=== PATIENT | female | born 1955 | race Caucasian/White ===

== ENCOUNTER → 2018-04-24 | Outpatient (CLI) | payer MEDICARE ==
--- NOTE | 2018-04-25 11:18 | BD ---
EXAMINATION TYPE: Axial Bone Density DATE OF EXAM: 04/24/2018 COMPARISON: NONE CLINICAL HISTORY: 62 YR OLD FEMALE....ICD-10 CODE: Z78.0 ASYMPTOMATIC MENOPAUSAL STATE Height: 58.2 Weight: 132 FRAX RISK QUESTIONS: Current Tobacco Use: YES, APROX 1 PAC RISK FACTORS HISTORY OF: Family History of Osteoporosis: YES, MOM, GRANDMA, AUNT, NO HIP FXS Active: IT DEPENDS Diet low in dairy products/other sources of calcium: NO Postmenopausal woman: YES AT AGE 53 Lost more than 2 inches in height since high school: YES, 62 INCHES IN [employer] MEDICATIONS: Additional Medications: ZOLOFT AND XANAX PRN, REFLUX MEDS, VIT D, MULTIVITAMIN WITH CALCIUM, TUMS Additional History: BARIATRIC SURG 2007, GI PROBLEMS, ULCERS, PANIC ATTACKS, HEARTBURN EXAM MEASUREMENTS: Bone mineral densitometry was performed using the [employer]. Bone mineral density as measured about the Lumbar spine is: ----- L1-L4(G/cm2): 1.255 T Score Values are as follows: ----- L1: 0.5 ----- L2: -0.2 ----- L3: 0.7 ----- L4: 1.0 ----- L1-L4: 0.6 Bone mineral density FIRST BONE DENSTIY STUDY AT [facility] Bone mineral density about the R hip (g/cm2): 0.894 Bone mineral density about the L hip (g/cm2): 0.900 T Score values are as follows: -----R Neck: -0.9 -----L Neck: -0.8 -----R Total: -0.9 -----L Total: -0.9 Bone mineral density NEW TO [facility] FRAX%s: THERE IS A 7.4% CHANCE OF A MAJOR OSTEOPOROTIC FX AND A0.7% FOR HIP FX.....PROBABILITY OF FX\ IN 10 YRS TIME IMPRESSION: Normal (Values between +1 and -1 indicate normal bone mass). Values approach osteopenia regarding bot h femurs. Consider repeating this study in 5 years or sooner if there is some new clinical indication . NOTE: T-SCORE=SD OF THE YOUNG ADULT MEAN.
== END | disposition home or self-care (01) ==
LOC: RADBDWWP 14:56
PROVIDERS: ATTEND Family Medicine
DX: Z13.820 Encounter for screening for osteoporosis (principal); Z78.0 Asymptomatic menopausal state
CPT/HCPCS: 77080

== ENCOUNTER → 2018-07-10 | Outpatient (CLI) | payer MEDICARE ==
--- NOTE | 2018-07-10 18:34 | CONS ---
CONSULTATION DATE OF SERVICE: 07/10/2018 This patient is a 63-year-old lady who has been evaluated in the sleep center for obstructive sleep apnea-hypopnea syndrome. HISTORY OF PRESENT ILLNESS/SLEEP-WAKE EVALUATION: Patient was diagnosed with obstructive sleep apnea around 1998 and was started on treatment with CPAP but quit it in about 2015 because at that time she had some work on her mouth and she was not able to wear her mask. At the present time, her sleep schedule is from around 1 to 4 a.m. until 10 a.m. to 1 p.m. No problem with falling asleep. No TV in bedroom. The patient continues to snore, has episodes of stopped breathing during sleep, grinding her teeth, has panic attacks, palpitations, heartburn, episodes of gasping for air and sweating, episodes of nocturia once per night. She also has episodes of discomfort in her feet and significant movements of her feet at night. [place] Sleepiness Scale is 9. PAST MEDICAL HISTORY: 1. History of coronary artery disease, status post SD around 1993. 2. Anxiety. 3. Acid reflux. 4. Back problems. 5. Neck problems. 6. Carpal tunnel syndrome. 7. History of stroke by results of CT scan of the head. PAST SURGICAL HISTORY: 1. Tonsillectomy. 2. Cholecystectomy. 3. Bariatric surgery. 4. Surgery for carpal tunnel syndrome. MEDICATIONS: 1. Paxil. 2. Xanax. 3. [place]. 4. Prilosec. 5. Vitamin D and B12 supplement. 6. Calcium supplement. 7. Folic acid supplement. 8. Acidophilus. 9. Magnesium. SOCIAL HISTORY: Positive for smoking for about 50 pack/years. Alcohol consumption none. FAMILY HISTORY: Hypertension, heart problems, hyperlipidemia, stroke, arthritis, sinus headaches, emphysema, bronchitis, cancer, insomnia, acid reflux, ulcers, anemia, mental illness. REVIEW OF SYSTEMS: Back pain, neck pain, awakenings from sleep, tiredness and sleepiness during the day. PHYSICAL EXAMINATION: GENERAL A pleasant lady without distress. VITAL SIGNS: BP 137/67, HR 62, RR 16, height 4 feet 10-1/2 inches, weight 138, BMI 28.1. Temperature 98.8. Oxygen saturation at room air 100%. Neck 13 inches in circumference. HEENT: PERRLA, EOMI. Evaluation of oropharynx showed tongue protrudes midline; low position of soft palate. NECK: Supple. No JVD. Thyroid is not palpable. LUNGS: Clear to percussion and to auscultation. Good air exchange. No wheezing or rhonchi. HEART: S1, S2 regular. Systolic murmur with maximum on aorta. ABDOMEN: Soft and nontender. Bowel sounds are present. No organomegaly appreciated. EXTREMITIES: No clubbing or cyanosis. SUPERINTENDENT RECREATION: Awake, alert, and oriented X3. Cranial nerves 2 to 7 intact. There is no fasciculation or atrophy noted. No focal deficits observed. IMPRESSION: 1. Snoring, low position of soft palate, awakenings from sleep with stopped breathing, history of obstructive sleep apnea in the past, sleepiness; obstructive sleep apnea-hypopnea syndrome. 2. Muscles cramps during sleep. 3. Anxiety. 4. Coronary artery disease, status post myocardial infarction around 1993. 5. History of stroke by results of CT scan. 6. Neck problems. 7. Back problems. 8. Status post tonsillectomy. 9. Status post cholecystectomy. 10.Status post bariatric surgery. 11.History of carpal tunnel syndrome, status post surgical treatment. 12.History of panic attacks. 13.History of smoking for 50 pack/years. PLAN: 1. Polysomnography for evaluation of patient's breathing during sleep. 2. CPAP/BiPAP titration if sleep study confirms obstructive sleep apnea-hypopnea syndrome. 3. Preferable position during sleep on the side. 4. No driving if patient feels any sleepiness. Patient is aware of civil and criminal liability for unsafe driving. 5. Smoking cessation program. I will see patient for follow-up visit to explain results of testing and following plan. Thank you very much for referring this patient for consultation. Sincerely, Man Wilkes MD, PhD, FAASM Diplomat of [place] [employer] [place] [employer] [facility] [place] MMODL / IJN: [id number] /
== END | disposition home or self-care (01) ==
LOC: SLEEP 16:49
PROVIDERS: ATTEND Internal Medicine
DX: G47.33 Obstructive sleep apnea (adult) (pediatric) (principal); F41.9 Anxiety disorder, unspecified; I25.10 Atherosclerotic heart disease of native coronary artery without angina pectoris; R25.2 Cramp and spasm; I25.2 Old myocardial infarction; R29.898 Other symptoms and signs involving the musculoskeletal system; Z86.73 Personal history of transient ischemic attack (TIA), and cerebral infarction without residual deficits; Z90.89 Acquired absence of other organs; Z90.49 Acquired absence of other specified parts of digestive tract; Z98.84 Bariatric surgery status; Z86.69 Personal history of other diseases of the nervous system and sense organs; Z98.890 Other specified postprocedural states; Z86.59 Personal history of other mental and behavioral disorders; Z87.891 Personal history of nicotine dependence; Z99.89 Dependence on other enabling machines and devices; Z79.899 Other long term (current) drug therapy; Z79.891 Long term (current) use of opiate analgesic
CPT/HCPCS: 99211

== ENCOUNTER 2018-07-22 02:26 | Inpatient (IN) | payer MEDICARE ==
[2018-07-22] MEDS ORDERED: PANTOPRAZOLE 40 MG/10 ML VIAL IVP STA (03:25)
[2018-07-22] MEDS ORDERED: NALOXONE 0.4 MG/ML 1 ML VIAL IV PRN (03:26)
[2018-07-22] MEDS ORDERED: ONDANSETRON 4 MG/2 ML VIAL IVP PRN (03:26)
[2018-07-22] MEDS ORDERED: HYDROmorphone 0.5 MG/0.5 ML SYRINGE IVP PRN (03:26)
[2018-07-22] MEDS ORDERED: LORazepam 2 MG/ML INJ IV PRN (03:26)
--- NOTE | 2018-07-22 03:26 | ED ---
Abdominal Pain HPI - General Chief Complaint: Abdominal Pain Stated Complaint: Abd pain Time Seen by Provider: 07/22/18 02:38 Source: EMS, RN notes reviewed, old records reviewed Mode of arrival: EMS Limitations: no limitations - History of Present Illness Initial Comments: 63-year-old female presents emergency Department data with chief complaint of 3 days of black tarry stools as well as back pain. Patient reports that she believed her stools started after she started taking a new depression medication Celexa. Patient reports that she has history of bariatric surgery in 2007. She relates that she has had no vomiting episodes. She is relates that she has had black stools. 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 She is on any blood thinners. She was initially seen at [facility]. She was transferred here. She did have a positive occult. Her hemoglobin is 9.9. She reports that 3 weeks ago from her primary care provider's office her hemoglobin was 12.4 that time. Patient was also found to have pancreatitis, elevated lipase at 1301. AST and ALT are within normal limits. She did have a CAT scan which shows a common bile duct diameter of 12 mm. MRCP may be able to further define this issue. Patient reports that she is not had an upper GI scope or any other GI testing in the past 5 years. She is due for a colonoscopy and further testing in 2014. Patient also relates a few weeks prior to that she did not have respiratory infection and was on 2 courses of azithromycin and then later clindamycin. - Related Data Allergies Allergy/AdvReac Type Severity Reaction Status Date / Time diazepam [From Valium] Allergy Confusion Verified 07/22/18 02:35 moxifloxacin [From Avelox] Allergy Unknown Verified 07/22/18 02:35 Penicillins Allergy Unknown Verified 07/22/18 02:35 Sulfa (Sulfonamide Allergy Unknown Verified 07/22/18 02:35 Antibiotics) tapentadol [From Nucynta] Allergy Nausea & Verified 07/22/18 02:35 Vomiting & Diarrhea tetracycline Allergy Rash/Hives Verified 07/22/18 02:35 tramadol [From Ultram] Allergy Unknown Verified 07/22/18 02:35 NSAIDS (Non-Steroidal AdvReac Unknown Verified 07/22/18 02:35 Anti-Inflamma Review of Systems ROS Statement: Those systems with pertinent positive or pertinent negative responses have been documented in the HPI. ROS Other: All systems not noted in ROS Statement are negative. Past Medical History Past Medical History: Myocardial Infarction ([place]) History of Any Multi-Drug Resistant Organisms: None Reported Past Surgical History: Bariatric Surgery, Cholecystectomy, Ear Surgery, Hernia Repair, Orthopedic Surgery, Tonsillectomy Past Psychological History: Anxiety, Depression, Panic Disorder Smoking Status: Current every day smoker Past Alcohol Use History: None Reported Past Drug Use History: None Reported General Exam - General Exam Comments Initial Comments: Pleasant 63-year-old female. Alert. No significant distress. Limitations: no limitations General appearance: alert, in no apparent distress Head exam: Present: atraumatic, normocephalic, normal inspection Eye exam: Present: normal appearance, PERRL, EOMI. Absent: scleral icterus, conjunctival injection, periorbital swelling ENT exam: Present: normal exam, mucous membranes moist Neck exam: Present: normal inspection. Absent: tenderness, meningismus, lymphadenopathy Respiratory exam: Present: normal lung sounds bilaterally Cardiovascular Exam: Present: regular rate, normal rhythm, normal heart sounds. Absent: systolic murmur, diastolic murmur, rubs, gallop, clicks GI/Abdominal exam: Present: soft, tenderness (Right upper quadrant left upper quadrant tenderness. Evidence of scarring over previous cholecystectomy.), normal bowel sounds. Absent: distended, guarding, rebound, rigid Back exam: Present: normal inspection Neurological exam: Present: alert, oriented X3, CN II-XII intact Psychiatric exam: Present: normal affect, normal mood Skin exam: Present: warm, dry, intact, normal color. Absent: rash Course Vital Signs 07/22/18 02:27 Temperature 98.5 F Pulse Rate 78 Respiratory 18 Rate Blood Pressure 172/72 O2 Sat by Pulse 100 Oximetry Medical Decision Making - Medical Decision Making 63-year-old female presents emergency department for Dr. Rubalcava for admission for GI bleed and pancreatitis. Hemoglobin 9.9 at this time. Troponin stable. She denies any nausea or vomiting. Her lipase was elevated at 13,000. Computed tomography scan shows evidence of dilated biliary ducts recommended MRCP to further define. Her white blood cell count was within normal limits at 6.5. She has no fevers or chills. Patient will be admitted at this time with consult to GI. Patient will be given IV Protonix and saline here. Rechecking CBC. 07/22/18 03:24 EKG performed at 2142 showed sinus rhythm ventricular rate 60 bpm. MA interval is 142 most seconds. QRS duration is 80 ms. QTC was 396. - Radiology Data Radiology results: report reviewed CT shows, bile duct diameter 12 mm clinical or laboratory evidence of biliary obstruction process or CPK further define. No convincing acute process identified. Disposition Clinical Impression: Pancreatitis, Upper GI bleed Disposition: ADMITTED IP TO THIS HOSP Condition: Stable Is patient prescribed a controlled substance at d/c from ED?: No Referrals: Lincoln Dodd MD [Primary Care Provider] - 1-2 days Time of Disposition: 03:25
[2018-07-22] MEDS: HYDROmorphone 1 MG/ML 1 ML SYRINGE IVP PRN ×4 (03:58→21:31)
[2018-07-22] MEDS: SODIUM CHLORIDE 0.9% 1,000 ML IV SCH ×2 (03:59→13:43)
[2018-07-22] MEDS ORDERED: ALPRAZolam 0.5 MG TAB PO STA (04:05)
[2018-07-22 04:18] LABS: Basophils % (A) 1 %; Eosinophils # (A) 0.2 k/uL (0-0.7); Eosinophils % (A) 3 %; HCT 35.2 % (34.0-46.0); HGB 11.6 gm/dL (11.4-16.0); Lymphocytes # (A) 2.1 k/uL (1.0-4.8); Lymphocytes % (A) 34 %; MCH 32.2 pg (25.0-35.0); MCHC 32.8 g/dL (31.0-37.0); MCV 98.2 fL (80.0-100.0); Mean Platelet Volume 7.4; Monocytes # (A) 0.5 k/uL (0-1.0); Monocytes % (A) 8 %; Neutrophils # (A) 3.3 k/uL (1.3-7.7); Neutrophils % (A) 52 %; Platelet Count 244 k/uL (150-450); RBC 3.59 m/uL (3.80-5.40); RDW 12.9 % (11.5-15.5); WBC 6.2 k/uL (3.8-10.6)
[2018-07-22 04:54] VITALS: BMI 26.7
--- NOTE | 2018-07-22 08:40 | US ---
EXAMINATION TYPE: US gallbladder DATE OF EXAM: 07/22/2018 COMPARISON: Outside CT earlier today. CLINICAL HISTORY: Pancreatitis. GB removed x 30+ years ago. Dark and foul smelling stool. Hx of bar iatric surgery. EXAM MEASUREMENTS: Liver Length: 16.4 cm CBD: 0.9 cm CHD: 1.0 cm Right Kidney: 9.8 x 4.5 x 3.4 cm Pancreas: Appears slightly heterogenous. Body= 1.6 cm. Main pancreatic duct = 2.4 mm. Liver: wnl Gallbladder: Surgically absent Evidence for sonographic Max's sign: neg CBD: upper limits of normal CHD: upper limits of normal after cholecystectomy Right Kidney: wnl IMPRESSION: On CT and ultrasound there is no evidence of complication related to acute pancreatitis. Duct is visualized but felt upper limits of normal on ultrasound perhaps mildly dilated in the head o n CT. No suspicious surrounding focal fluid collection is seen on CT or ultrasound.
[2018-07-22] MEDS ORDERED: PANTOPRAZOLE 40 MG/10 ML VIAL IV SCH (09:00)
[2018-07-22] MEDS ORDERED: CALCIUM CARBONATE 500 MG CHEWABLE PO PRN (12:08)
[2018-07-22] MEDS ORDERED: MELATONIN 3 MG TABLET PO PRN (12:08)
[2018-07-22 12:21] LABS: Basophils % (A) 1 %; Eosinophils # (A) 0.1 k/uL (0-0.7); Eosinophils % (A) 2 %; HCT 28.9 % (34.0-46.0); Hypochromasia Slight; Lymphocytes # (A) 1.4 k/uL (1.0-4.8); Lymphocytes % (A) 30 %; MCH 32.1 pg (25.0-35.0); MCHC 32.2 g/dL (31.0-37.0); MCV 99.8 fL (80.0-100.0); Mean Platelet Volume 7.3; Monocytes # (A) 0.5 k/uL (0-1.0); Monocytes % (A) 10 %; Neutrophils # (A) 2.6 k/uL (1.3-7.7); Neutrophils % (A) 54 %; Platelet Count 198 k/uL (150-450); RBC 2.89 m/uL (3.80-5.40); RDW 12.9 % (11.5-15.5); WBC 4.8 k/uL (3.8-10.6)
[2018-07-22 12:25] LABS: Amylase 52 U/L (30-110); Lipase 194 U/L (23-300)
[2018-07-22 12:28] LABS: HGB 9.3 gm/dL (11.4-16.0)
[2018-07-22 12:40] LABS: INR 1.1 (<1.2); Prothrombin Time 10.8 sec (9.0-12.0)
[2018-07-22] MEDS: HEPARIN SODIUM,PORCINE 5,000 UNIT/ML 1 ML VIAL SQ SCH ×3 (13:06→22:13)
[2018-07-22] MEDS: HYDROcodone/APAP 10-325MG 1 EACH TAB PO SCH ×3 (13:06→22:43)
[2018-07-22] MEDS: SUCRALFATE 1 GM TAB PO SCH ×3 (13:06→21:42)
[2018-07-22] MEDS: ERGOCALCIFEROL 50,000 UNIT CAP PO SCH ×2 (13:07→13:33)
[2018-07-22] MEDS: NICOTINE 14MG/24HR PATCH TRANSDERM SCH (13:42)
--- NOTE | 2018-07-22 14:36 | HP ---
HISTORY AND PHYSICAL DATE OF SERVICE: 07/22/2018 CHIEF COMPLAINT: Abdominal pain, melena. HISTORY OF PRESENT ILLNESS: This is a 63-year-old woman with a past medical history of multiple medical problems including bariatric surgery, cholecystectomy, history of myocardial infarction, anxiety, depression, panic disorder, being followed by Dr. Lincoln Dodd in the outpatient setting was complaining of abdominal pain. Patient presented to [facility]. The patient also noted to have melena for the last 2 days. The abdominal pain was felt in the epigastric area and the back and hemoglobin was found to be 9.9 and hemoglobin previous was 12.4. The patient was sent to [facility], admitted for further evaluation and treatment. Lipase is elevated from elsewhere. There is no history of fever or rigors. No history of headache, loss of consciousness, seizures. PAST MEDICAL HISTORY: History of myocardial infarction, cholecystectomy, bariatric surgery, anxiety, depression, panic disorder. MEDICATIONS ARE: 1. Home medication vitamin D2 fifty thousand q.7 days. 2. Tobrex 1 drop b.i.d. 3. Carafate 1 g a.c. and at bedtime. 4. Paxil 20 mg p.o. daily. 5. Prilosec OTC 20 mg b.i.d. 6. Claritin 10 mg p.o. daily. 7. [place] 10 mg 5 times daily. 8. Celexa 10 mg p.r.n. 9. Xanax 0.5 t.i.d. p.r.n. 10.TUMS 500 mg daily p.r.n. ALLERGIES: DIAZEPAM, MOXIFLOXACIN, PENICILLIN, SULFA, NUCYNTA, TETRACYCLINE, ULTRAM, NSAIDS. FAMILY HISTORY: No history of heart disease or strokes in the family. SOCIAL HISTORY: History of smoking on a daily basis. No history of alcohol intake. REVIEW OF SYSTEMS: ENT: No diminished vision. CARDIOVASCULAR: No angina or palpitation. RESPIRATION: No cough or hemoptysis. GI: As mentioned earlier. : No dysuria. NERVOUS SYSTEM: No numbness or weakness. ALLERGY/IMMUNOLOGY: No history of asthma. MUSCULOSKELETAL: As mentioned earlier. HEMATOLOGY: No history of anemia. ENDOCRINE: No history of diabetes or hypothyroid. CONSTITUTIONAL: As mentioned earlier. DERMATOLOGY: Negative. RHEUMATOLOGY: Negative. PSYCHIATRY: As mentioned earlier. PHYSICAL EXAMINATION: Patient is alert and oriented x3. Pulse 71, blood pressure 102/59, respirations 16, temperature 97.9, pulse ox 97% on room air. HEENT: Conjunctivae normal. Oral mucosa moist. NECK: No jugular venous distention. No carotid bruit, no lymph node enlargement. CARDIOVASCULAR SYSTEM: S1, S2, muffled. RESPIRATORY: Breath sounds diminsihed at the bases, no rhonchi, no crackles. ABDOMEN: Soft. Mild diffuse discomfort. No guarding. No rigidity. No mass palpable. LEGS: No edema, no swelling. NERVOUS SYSTEM: Higher functions as mentioned earlier. Moves all 4 limbs, no focal motor deficits. LYMPHATICS: No lymph node enlargement. SKIN: No ulcer, rash or bleeding. LABS: WBC 4.8, hemoglobin is 9.3. ASSESSMENT: 1. Possible upper gastrointestinal bleeding with acute blood loss anemia, possible peptic ulcer disease. 2. Possible acute pancreatitis with abdominal pain. 3. History of bariatric surgery. 4. History of cholecystectomy. 5. History of hernia surgery. 6. History of anxiety, depression, panic disorder. 7. Continued ongoing nicotine dependence. 8. History of myocardial infarction. RECOMMENDATION: This 63-year-old woman presented with multiple complex medical issues. Will monitor the patient closely. Continue with the current management and symptomatic treatment. Otherwise, I would recommend resume home medications. Keep the patient on clear liquids. Gastroenterology consultation for possible endoscopies. Repeat amylase, lipase. Prognosis is guarded. Further recommendations to follow. A copy of this will be forwarded to Dr. Lincoln Dodd who is the primary physician. MMODL / IJN: [id number] /
[2018-07-22 19:49] LABS: Appearance,Urine Clear (Clear); Bilirubin,Urine Negative (Negative); Blood,Urine Small (Negative); Color,Urine Light Yellow; Glucose,Urine (UA) Negative (Negative); Ketones,Urine Negative (Negative); Leukocyte Esterase,Urine Negative (Negative); Mucus,Urine Rare /hpf; Nitrite,Urine Negative (Negative); Protein,Urine Negative (Negative); RBC,Urine 1 /hpf (0-5); Specific Gravity,Urine 1.009 (1.001-1.035); Squamous Epithelial Cell,Urine <1 /hpf (0-4); Urobilinogen,Urine <2.0 mg/dL (<2.0); WBC,Urine 1 /hpf (0-5)
[2018-07-22] MEDS: PANTOPRAZOLE 40 MG/10 ML VIAL IV SCH (21:42)
[2018-07-22] MEDS: TOBRAMYCIN 0.3% OPHTH OINT 3.5 GM TUBE BOTH EYES SCH ×2 (21:44→21:49)
--- NOTE | 2018-07-22 23:46 | P.CONS ---
History of Present Illness - Reason for Consult Consult date: 07/22/18 Melena Requesting physician: Andres Kang - Chief Complaint Melena - History of Present Illness The patient is a pleasant 63-year-old female with a medical history significant for anxiety, depression, prior myocardial infarction and chronic back pain who presents to the hospital with complaints of black tarry stools. The patient reports that she has had 3 days of black bowel movements. She denies any gross blood per rectum. The patient has a history of gastroesophageal reflux disease and is on omeprazole therapy as needed. She denies any NSAID use. She reports that she was having approximately 3 bowel movements per day. She denies any NSAID use. She does believe she had a prior diagnosis of peptic ulcer disease in the . She has also undergone a Bernice-en-Y surgery and reports that she had an EGD following this in 2007 as well as a subsequent EGD which was normal. The patient has had elevations in her amylase and lipase before. She reports intermittent episodes of abdominal pain which she says, and go. Previously in April she was treated with Carafate which she felt helped. She denies any use of iron supplementation or Pepto-Bismol. On presentation to the hospital patient's hemoglobin was found to be 11.6, she reports that a few weeks ago it was 12.4, however initial transfer to this hospital was due to the patient's symptoms and a reported hemoglobin of 9.9 at an outside hospital. Lipase was found to be 1301 on presentation. Liver enzymes were normal on presentation and ultrasound showed a surgically absent gallbladder with a common bile duct within normal limits. Past endoscopic history: The patient states that her last colonoscopy was approximately 12 years ago and was normal. Patient has had upper endoscopy in the past with the patient reporting her first EGD in 2007 after her Berniec-en-Y surgery and a subsequent EGD which were normal. Review of Systems REVIEW OF SYSTEMS: CARDIOPULMONARY: Denies chest pain or shortness of breath. GENITOURINARY: No dysuria or hematuria. MUSCULOSKELETAL: No weakness reported. SKIN: Denies any new rashes or lesions, jaundice or pallor. PSYCHIATRIC: The patient has a known history of depression and anxiety with recent change in medications to Celexa. NEUROLOGY: Denies headache, denies any new focal deficits. EARS: No tinnitus, discharge or new hearing loss. NOSE: No discharge or congestion. EYES: No pain in eyes or change in vision. CONSTITUTIONAL: No recent weight loss. No fever, chills, night sweats. Past Medical History Past Medical History: Myocardial Infarction (MD) Last Myocardial Infarction Date:: History of Any Multi-Drug Resistant Organisms: None Reported Past Surgical History: Bariatric Surgery, Cholecystectomy, Ear Surgery, Hernia Repair, Orthopedic Surgery, Tonsillectomy Past Psychological History: Anxiety, Depression, Panic Disorder Smoking Status: Current every day smoker Past Alcohol Use History: None Reported Past Drug Use History: None Reported Additional History: Past family history: Reviewed and noncontributory to patient's illness. Medications and Allergies Home Medications Medication Instructions Recorded Confirmed Type ALPRAZolam [Xanax] 0.5 mg PO TID PRN 07/22/18 07/22/18 History Calcium Carbonate [Tums] 500 mg PO DAILY PRN 07/22/18 07/22/18 History Citalopram Hydrobromide [CeleXA] 10 mg PO DAILY 07/22/18 07/22/18 History Ergocalciferol (Vitamin D2) 50,000 units PO Q7D 07/22/18 07/22/18 History [Vitamin D2] HYDROcodone/APAP 10-325MG [[place] 1 tab PO 5XD 07/22/18 07/22/18 History 10-325] Loratadine [Claritin] 10 mg PO DAILY 07/22/18 07/22/18 History Omeprazole Magnesium [PriLOSEC OTC] 20 mg PO Q12HR PRN 07/22/18 07/22/18 History PARoxetine HCL 20 mg PO DAILY 07/22/18 07/22/18 History Sucralfate [Carafate] 1 gm PO ACHS 07/22/18 07/22/18 History Tobramycin 0.3% Ophth Oint [Tobrex 1 applic BOTH EYES BID 07/22/18 07/22/18 History 0.3% Ophth Oint] Allergies Allergy/AdvReac Type Severity Reaction Status Date / Time diazepam [From Valium] Allergy Confusion Verified 07/22/18 08:29 moxifloxacin [From Avelox] Allergy Unknown Verified 07/22/18 08:29 Penicillins Allergy Unknown Verified 07/22/18 08:29 Sulfa (Sulfonamide Allergy Unknown Verified 07/22/18 08:29 Antibiotics) tapentadol [From Nucynta] Allergy Nausea & Verified 07/22/18 08:29 Vomiting & Diarrhea tetracycline Allergy Rash/Hives Verified 07/22/18 08:29 tramadol [From Ultram] Allergy Unknown Verified 07/22/18 08:29 NSAIDS (Non-Steroidal AdvReac Unknown Verified 07/22/18 08:29 Anti-Inflamma Physical Exam Vitals: Vital Signs Temp Pulse Pulse Resp BP BP Pulse Ox 07/22/18 23:00 99.0 F 71 24 101/64 96 07/22/18 15:00 98.5 F 60 16 98/60 95 07/22/18 06:53 97.9 F 71 16 102/59 97 07/22/18 06:17 18 07/22/18 04:16 97.9 F 07/22/18 04:00 66 18 130/62 100 07/22/18 02:27 98.5 F 78 18 172/72 100 Intake and Output 07/22/18 07/22/18 07/23/18 14:59 22:59 06:59 Intake Total 840 Balance 840 Intake: Intake, IV Titration 600 Amount Sodium Chloride 0.9% 1, 600 000 ml @ 100 mls/hr IV . Q10H [facility] Rx#:[id number] Oral 240 Other: Voiding Method Toilet Toilet # Voids 2 2 # Bowel Movements 0 Weight 58 kg On physical examination, patient appears comfortable in no apparent distress. HEAD: Normocephalic, atraumatic. EYES: No scleral icterus. No conjunctival injection. MOUTH: No lesions, tongue midline. NECK: Trachea midline, no gross abnormalities. CHEST: Clear to auscultation with no wheezing or rhonchi appreciated. HEART: Regular rate and rhythm. ABDOMEN: Soft. Bowel sounds are positive. No organomegaly. No guarding or rigidity. EXTREMITIES: No pedal edema. SKIN: No rashes, no jaundice. NEUROLOGIC: Alert and oriented x3. No focal deficits. Results CBC & Chem 7: 07/22/18 09:17 Labs: Abnormal Lab Results - Last 24 Hours (Table) 07/22/18 07/22/18 07/22/18 Range/Units 03:54 09:17 19:30 RBC 3.59 L 2.89 L (3.80-5.40) m/uL Hgb 9.3 L D (11.4-16.0) gm/dL Hct 28.9 L (34.0-46.0) % Urine Blood Small H (Negative) Urine Mucus Rare H (None) /hpf Assessment and Plan (1) Melena Narrative/Plan: The patient reporting 3 days of black, tarry, foul-smelling stool. She was reportedly found to have a hemoglobin of 9.9 at an outside hospital which was subsequently found to be 11.6 on presentation to this hospital, however repeat hemoglobin was 9.4. She denies any NSAID use however does report a recent course of steroid therapy. She denies any alcohol use. This is likely related to upper GI pathology such as peptic ulcer disease, anastomotic site ulcer, erosive esophagitis/gastritis, or other etiology. Current Visit: Yes Status: Acute Code(s): K92.1 - MELENA SNOMED Code(s): 2818998 (2) Anemia, blood loss Narrative/Plan: As above. Current Visit: Yes Status: Acute Code(s): D50.0 - IRON DEFICIENCY ANEMIA SECONDARY TO BLOOD LOSS (CHRONIC) SNOMED Code(s): 501020637 (3) Upper GI bleed Narrative/Plan: As above. Current Visit: Yes Status: Acute Code(s): K92.2 - GASTROINTESTINAL HEMORRHAGE, UNSPECIFIED SNOMED Code(s): 45810165 Plan: Supportive care Monitor hemoglobin and hematocrit and transfuse as needed Continue Protonix twice daily Okay for liquid diet Plan for EGD tomorrow Given symptoms and patient's anemia she was offered a colonoscopy in the setting of a remote prior colonoscopy in 2011. The patient was initially agreeable however later changed her mind and only wants to have investigation with EGD at this time Thank you for allowing us to participate in the care of this patient, we will continue to follow
[2018-07-23] MEDS: HYDROmorphone 1 MG/ML 1 ML SYRINGE IVP PRN ×5 (00:20→21:49)
[2018-07-23] MEDS: HYDROcodone/APAP 10-325MG 1 EACH TAB PO SCH ×5 (00:20→19:40)
[2018-07-23] MEDS: ALPRAZolam 0.5 MG TAB PO PRN ×3 (00:27→16:46)
[2018-07-23] MEDS: SODIUM CHLORIDE 0.9% 1,000 ML IV SCH ×2 (00:27→10:00)
[2018-07-23] MEDS: ACETAMINOPHEN TAB 500 MG TAB PO PRN ×2 (06:11→12:02)
[2018-07-23] MEDS: HEPARIN SODIUM,PORCINE 5,000 UNIT/ML 1 ML VIAL SQ SCH ×2 (07:48→21:49)
[2018-07-23] MEDS: NICOTINE 14MG/24HR PATCH TRANSDERM SCH (07:49)
[2018-07-23] MEDS: PANTOPRAZOLE 40 MG/10 ML VIAL IV SCH ×2 (07:50→21:48)
[2018-07-23] MEDS: TOBRAMYCIN 0.3% OPHTH OINT 3.5 GM TUBE BOTH EYES SCH ×2 (07:50→21:49)
[2018-07-23] MEDS: LORATADINE 10 MG TAB PO SCH (07:50)
[2018-07-23] MEDS: SUCRALFATE 1 GM TAB PO SCH ×4 (07:50→21:48)
[2018-07-23] MEDS: PARoxetine 20 MG TAB PO SCH (07:52)
[2018-07-23 09:39] LABS: Basophils % (A) 0 %; Eosinophils # (A) 0.1 k/uL (0-0.7); Eosinophils % (A) 2 %; HCT 29.2 % (34.0-46.0); HGB 9.2 gm/dL (11.4-16.0); Lymphocytes # (A) 1.5 k/uL (1.0-4.8); Lymphocytes % (A) 38 %; MCH 31.8 pg (25.0-35.0); MCHC 31.7 g/dL (31.0-37.0); MCV 100.3 fL (80.0-100.0); Monocytes # (A) 0.3 k/uL (0-1.0); Monocytes % (A) 8 %; Neutrophils # (A) 1.8 k/uL (1.3-7.7); Neutrophils % (A) 47 %; Platelet Count 197 k/uL (150-450); RBC 2.91 m/uL (3.80-5.40); RDW 12.7 % (11.5-15.5); WBC 3.9 k/uL (3.8-10.6)
[2018-07-23 09:58] LABS: ALT 30 U/L (9-52); AST 24 U/L (14-36); Alkaline Phosphatase 87 U/L (38-126); Amylase 38 U/L (30-110); Anion Gap 5 mmol/L; Blood Urea Nitrogen 8 mg/dL (7-17); Calcium 8.6 mg/dL (8.4-10.2); Carbon Dioxide 26 mmol/L (22-30); Chloride 107 mmol/L (98-107); Cholesterol 115 mg/dL (<200); Glucose 73 mg/dL (74-99); HDL Cholesterol 50 mg/dL (40-60); LDL Cholesterol,Calculated 49 mg/dL (0-99); Lipase 76 U/L (23-300); Potassium 4.1 mmol/L (3.5-5.1); Sodium 138 mmol/L (137-145); Total Bilirubin 0.3 mg/dL (0.2-1.3); Total Protein 5.5 g/dL (6.3-8.2); Triglycerides 79 mg/dL (<150)
[2018-07-23] MEDS ORDERED: PROPOFOL 10 MG/ML 20 ML VIAL IV ONE (12:37)
[2018-07-23] MEDS ORDERED: LIDOCAINE 1% INJ 10MG/ML (20 ML MDV) ONE (12:37)
[2018-07-23] MEDS ORDERED: IV FLUID CONTINUATION 1,000 ML IV ONE (12:39)
--- NOTE | 2018-07-23 13:40 | P.PCN ---
Date of Procedure: 07/23/18 Description of Procedure: BRIEF HISTORY: Patient is a 63-year-old, pleasant, female who presents to the hospital with complaints of 3 days of melena. The patient has a history of anxiety and depression, chronic back pain and prior Bernice-en-Y surgery. She has had endoscopy in the past after her Bernice-en-Y surgery. She denies any use of NSAID medications found to be anemic on presentation. She does take omeprazole but only on an as-needed basis. PROCEDURE PERFORMED: Esophagogastroduodenoscopy with biopsy. PREOPERATIVE DIAGNOSIS: Melena, anemia of acute blood loss. ESTIMATED BLOOD LOSS: Minimal. IV sedation per anesthesia. PROCEDURE: After informed consent was obtained, the patient was brought into the endoscopy unit. IV sedation was administered by Anesthesia under continuous monitoring. Initially the Olympus GIFH-190 video endoscope was inserted into the mouth. Esophagus intubated without any difficulty. It was gradually advanced into the remnant stomach pouch and small bowel and carefully examined. The blind limb of the Bernice-en-Y was inspected and normal, on withdrawal a nonbleeding superficial ulceration at the anastomotic site was noted. The efferent limb was then inspected to 25 cm past the anastomosis with no abnormalities noted. The scope at this time was withdrawn to the remnant pouch of the stomach, which was adequately insufflated with air, and appeared grossly normal. The scope was then withdrawn into the esophagus. The GE junction was located at 35 cm from the incisors. The esophagus appeared normal. IMPRESSION: 1. Nonbleeding superficial ulceration at the Bernice-en-Y anastomotic site with biopsies taken. 2. No other findings to explain melena or anemia this time. RECOMMENDATIONS: The findings of this examination were discussed with the patient. Continue twice daily PPI. Okay for full liquid diet. Avoid NSAID use. Await results of biopsies..
[2018-07-23] MEDS ORDERED: LEVOFLOXACIN 500MG-D5W PMX 500 MG in DEXTROSE/WATER 1 100ML.BAG IVPB SCH (14:00)
--- NOTE | 2018-07-23 17:58 | P.PN ---
Subjective Progress Note Date: 07/23/18 Progress note being dictated for Dr. Kang. Interval history: This is a 63-year-old female admitted with possible upper GI bleed, acute blood loss anemia, possible peptic ulcer disease, abdominal pain and multiple other medical issues in a patient with history of bariatric surgery. Complains of persistent diffuse abdominal pain, lipase improved, 76. Febrile, T-max 100.3. Evaluated by GI , underwent EGD today. EGD reported nonbleeding superficial ulceration in the Bernice-en-Y anastomotic site, biopsies taken. Objective - Vital Signs Vital signs: Vital Signs Temp 100.3 F H 07/23/18 11:58 Pulse 76 07/23/18 15:00 Resp 16 07/23/18 13:45 BP 132/66 07/23/18 15:00 Pulse Ox 97 07/23/18 15:00 Intake & Output 07/22/18 07/23/18 07/23/18 18:59 06:59 18:59 Intake Total 600 1040 50 Balance 600 1040 50 Weight 58 kg Intake: IV 50 Intake, IV Titration 600 800 Amount Sodium Chloride 0.9% 1, 600 800 000 ml @ 100 mls/hr IV . Q10H CECILIA Rx#:[id number] Oral 240 Other: Voiding Method Toilet Toilet # Voids 4 1 3 # Bowel Movements 0 0 - Exam PHYSICAL EXAM: VITAL SIGNS: As above GENERAL: Sitting up at side of bed, no acute distress HEENT: Conjunctivae normal. eyes normal. Oral mucosa dry NECK: No JVD. No thyroid enlargement. No LNs CARDIOVASCULAR: S1, S2 muffled. No murmur RESPIRATION: Breath sounds diminished in the bases. No rhonchi or crackles. No bronchial breathing. ABDOMEN: Soft, mild diffuse tenderness . No guarding. no masses palpable. No rigidity.Bowel sounds heard. LEGS: No edema. no swelling PSYCHIATRY: Alert and oriented -3, mood and affect normal. NERVOUS SYSTEM: Cranial N 2-12 grossly normal. Moves all 4 limbs. Diffuse weakness No focal deficits. Skin: no ulcer no rash Lymphatic system. No LN neck axilla or groin. - Labs CBC & Chem 7: 07/23/18 08:37 07/23/18 08:37 Labs: Abnormal Lab Results - Last 24 Hours (Table) 07/22/18 07/23/18 07/23/18 Range/Units 19:30 08:37 08:37 RBC 2.91 L (3.80-5.40) m/uL Hgb 9.2 L (11.4-16.0) gm/dL Hct 29.2 L (34.0-46.0) % MCV 100.3 H (80.0-100.0) fL Glucose 73 L (74-99) mg/dL Total Protein 5.5 L (6.3-8.2) g/dL Albumin 3.0 L (3.5-5.0) g/dL Urine Blood Small H (Negative) Urine Mucus Rare H (None) /hpf Assessment and Plan Assessment: 1. Possible upper GI bleeding with acute blood loss anemia, status post EGD reporting nonbleeding superficial ulceration in the Bernice-en-Y anastomotic site, biopsies taken. 2. Abdominal pain, possible acute pancreatitis 3. History of bariatric surgery 4. Anxiety, depression, panic disorder history 5. Continued ongoing nicotine dependence 6. CAD, history of [place] 7. Fevers, workup in progress Plan: Continue on current medication regime , PPI, monitoring and symptomatic treatment. Blood cultures, urine cultures ordered. Antibiotics initiated. Close monitoring of hemoglobin with repeat labs ordered for a.m. further recommendations to follow. The impression and plan of care has been dictated as directed. : I performed a history and examination of this patient, discussed the same with the dictator. I agree with the dictator's note ,documented as a scribe. Any additional findings or plans will be noted.
[2018-07-24] MEDS: HYDROcodone/APAP 10-325MG 1 EACH TAB PO SCH ×5 (00:19→19:46)
[2018-07-24] MEDS: ALPRAZolam 0.5 MG TAB PO PRN ×2 (00:36→17:28)
[2018-07-24] MEDS: SODIUM CHLORIDE 0.9% 1,000 ML IV SCH ×3 (00:36→15:31)
[2018-07-24] MEDS: HYDROmorphone 1 MG/ML 1 ML SYRINGE IVP PRN ×5 (04:30→22:52)
[2018-07-24] MEDS: PARoxetine 20 MG TAB PO SCH (08:10)
[2018-07-24] MEDS: SUCRALFATE 1 GM TAB PO SCH ×5 (08:10→19:46)
[2018-07-24] MEDS: HEPARIN SODIUM,PORCINE 5,000 UNIT/ML 1 ML VIAL SQ SCH ×2 (08:10→19:47)
[2018-07-24] MEDS: PANTOPRAZOLE 40 MG/10 ML VIAL IV SCH ×2 (08:10→19:46)
[2018-07-24] MEDS: TOBRAMYCIN 0.3% OPHTH OINT 3.5 GM TUBE BOTH EYES SCH ×2 (08:11→19:47)
[2018-07-24] MEDS: NICOTINE 14MG/24HR PATCH TRANSDERM SCH (08:11)
[2018-07-24] MEDS: LORATADINE 10 MG TAB PO SCH (08:11)
[2018-07-24 09:26] LABS: Basophils % (A) 1 %; Eosinophils # (A) 0.1 k/uL (0-0.7); Eosinophils % (A) 2 %; HCT 30.4 % (34.0-46.0); HGB 9.6 gm/dL (11.4-16.0); Lymphocytes # (A) 1.4 k/uL (1.0-4.8); Lymphocytes % (A) 40 %; MCH 31.4 pg (25.0-35.0); MCHC 31.7 g/dL (31.0-37.0); MCV 99.1 fL (80.0-100.0); Mean Platelet Volume 7.3; Monocytes # (A) 0.4 k/uL (0-1.0); Monocytes % (A) 10 %; Neutrophils # (A) 1.6 k/uL (1.3-7.7); Neutrophils % (A) 44 %; Platelet Count 215 k/uL (150-450); RBC 3.06 m/uL (3.80-5.40); RDW 12.7 % (11.5-15.5); WBC 3.6 k/uL (3.8-10.6)
[2018-07-24 09:41] LABS: ALT 28 U/L (9-52); AST 20 U/L (14-36); Albumin 3.2 g/dL (3.5-5.0); Alkaline Phosphatase 90 U/L (38-126); Amylase 47 U/L (30-110); Anion Gap 3 mmol/L; Blood Urea Nitrogen 8 mg/dL (7-17); Calcium 8.9 mg/dL (8.4-10.2); Carbon Dioxide 32 mmol/L (22-30); Chloride 105 mmol/L (98-107); Glucose 80 mg/dL (74-99); Lipase 115 U/L (23-300); Potassium 3.9 mmol/L (3.5-5.1); Sodium 140 mmol/L (137-145); Total Bilirubin 0.3 mg/dL (0.2-1.3); Total Protein 5.8 g/dL (6.3-8.2)
[2018-07-24] MEDS ORDERED: MAGNESIUM HYDROXIDE 2,400 MG/10 ML CUP PO PRN (11:47)
--- NOTE | 2018-07-24 11:50 | P.PN ---
Subjective Progress Note Date: 07/24/18 Principal diagnosis: Anemia Status post EGD yesterday with evidence of nonbleeding anastomotic Bernice-en-Y ulcer. Reports mild constipation today. Hemoglobin stable 9.6. Afebrile. Objective - Vital Signs Vital signs: Vital Signs Temp 97.2 F L 07/24/18 07:20 Pulse 72 07/24/18 07:20 Resp 18 07/24/18 08:23 BP 132/68 07/24/18 07:20 Pulse Ox 97 07/24/18 07:20 Intake & Output 07/23/18 07/24/18 07/24/18 18:59 06:59 18:59 Intake Total 50 800 Balance 50 800 Intake: IV 50 Oral 800 Other: Voiding Method Toilet Toilet # Voids 3 2 # Bowel Movements 0 - Exam General appearance: The patient is alert, oriented, in no acute distress. HET: Head is normocephalic and atraumatic. Pupils are equal and reactive. Oropharynx is clear without lesions. Neck: Supple without lymphadenopathy. Trachea midline. Heart: S1 S2. Regular rate and rhythm. Lungs: No crackles or wheezes are heard. Abdomen: Soft, nontender, nondistended with bowel sounds. No peritoneal signs. No palpable organomegaly or masses. Extremities: Normal skin color and turgor. No cyanosis, rash, ulceration, clubbing, or edema. Radial and pedal pulses are 2/4 bilaterally. Neurological: No focal deficits. Strength and sensation are grossly intact. - Labs CBC & Chem 7: 07/24/18 08:59 07/24/18 08:59 Labs: Abnormal Lab Results - Last 24 Hours (Table) 07/24/18 07/24/18 Range/Units 08:59 08:59 WBC 3.6 L (3.8-10.6) k/uL RBC 3.06 L (3.80-5.40) m/uL Hgb 9.6 L (11.4-16.0) gm/dL Hct 30.4 L (34.0-46.0) % Carbon Dioxide 32 H (22-30) mmol/L Total Protein 5.8 L (6.3-8.2) g/dL Albumin 3.2 L (3.5-5.0) g/dL Microbiology - Last 24 Hours (Table) 07/23/18 12:15 Urine Culture - Preliminary Urine,Voided Assessment and Plan (1) Anastomotic ulcer Current Visit: Yes Status: Acute Code(s): K28.9 - GASTROJEJUNAL ULCER, UNSP ACUTE OR CHR, W/O HEMOR OR PERF SNOMED Code(s): 050557672 (2) History of Bernice-en-Y gastric bypass Current Visit: Yes Status: Acute Code(s): Z98.84 - BARIATRIC SURGERY STATUS SNOMED Code(s): 537377151 (3) Anemia, blood loss Current Visit: Yes Status: Acute Code(s): D50.0 - IRON DEFICIENCY ANEMIA SECONDARY TO BLOOD LOSS (CHRONIC) SNOMED Code(s): 393649760 (4) Melena Current Visit: Yes Status: Acute Code(s): K92.1 - MELENA SNOMED Code(s): 7975793 (5) Upper GI bleed Current Visit: Yes Status: Acute Code(s): K92.2 - GASTROINTESTINAL HEMORRHAGE, UNSPECIFIED SNOMED Code(s): 71029942 Plan: 1. Will provide stool softeners for report of constipation. Agreeable for discharge. CBC in the outpatient setting in 5-7 days. Follow with primary in 7 -10 days. Return to GI office in 2-3 weeks. Protonix 40 mg daily. Avoid NSAIDs alcohol. Assessment and plan a care discussed with Dr. Chavira
[2018-07-24] MEDS: LEVOFLOXACIN 500 MG TAB PO SCH (14:01)
[2018-07-24] MEDS ORDERED: POLYETHYLENE GLYCOL 3350 17 GM POWD.PACK PO STA (15:18)
--- NOTE | 2018-07-24 16:43 | XR ---
EXAMINATION TYPE: XR chest 2V DATE OF EXAM: 07/24/2018 COMPARISON: None HISTORY: 63-year-old female with fever TECHNIQUE: Frontal and lateral views FINDINGS: The cardiomediastinal silhouette, aorta, and pulmonary vasculature are within normal limits. Mild int erstitial prominence is a chronic appearance. Some hazy peripheral lower lung densities related to ov erlying soft tissue. No consolidation or pleural effusion. Moderate spondylotic change mid thoracic s pine. IMPRESSION: Chronic appearing changes without acute cardiopulmonary process.
[2018-07-24 23:25] VITALS: RESP 18; TEMP 98.2
[2018-07-25] MEDS: HYDROcodone/APAP 10-325MG 1 EACH TAB PO SCH ×4 (00:23→15:12)
[2018-07-25] MEDS: ALPRAZolam 0.5 MG TAB PO PRN ×2 (00:23→10:52)
[2018-07-25] MEDS: SODIUM CHLORIDE 0.9% 1,000 ML IV SCH ×2 (05:30→08:12)
[2018-07-25 07:14] VITALS: BP 148/78; PULSE 68
[2018-07-25 07:58] LABS: Basophils % (A) 1 %; Eosinophils # (A) 0.1 k/uL (0-0.7); Eosinophils % (A) 4 %; HCT 30.8 % (34.0-46.0); HGB 9.9 gm/dL (11.4-16.0); Lymphocytes # (A) 1.6 k/uL (1.0-4.8); Lymphocytes % (A) 46 %; MCH 31.3 pg (25.0-35.0); MCV 97.7 fL (80.0-100.0); Mean Platelet Volume 7.5; Monocytes # (A) 0.3 k/uL (0-1.0); Monocytes % (A) 8 %; Neutrophils # (A) 1.3 k/uL (1.3-7.7); Neutrophils % (A) 38 %; Platelet Count 208 k/uL (150-450); RBC 3.15 m/uL (3.80-5.40); RDW 12.7 % (11.5-15.5); WBC 3.4 k/uL (3.8-10.6)
[2018-07-25] MEDS: LORATADINE 10 MG TAB PO SCH (08:11)
[2018-07-25] MEDS: HEPARIN SODIUM,PORCINE 5,000 UNIT/ML 1 ML VIAL SQ SCH (08:11)
[2018-07-25] MEDS: NICOTINE 14MG/24HR PATCH TRANSDERM SCH (08:11)
[2018-07-25] MEDS: TOBRAMYCIN 0.3% OPHTH OINT 3.5 GM TUBE BOTH EYES SCH (08:12)
[2018-07-25] MEDS: PARoxetine 20 MG TAB PO SCH ×2 (08:12→08:14)
[2018-07-25] MEDS: SUCRALFATE 1 GM TAB PO SCH ×2 (08:12→15:13)
[2018-07-25] MEDS: PANTOPRAZOLE 40 MG/10 ML VIAL IV SCH (08:12)
[2018-07-25] MEDS: HYDROmorphone 1 MG/ML 1 ML SYRINGE IVP PRN (08:18)
[2018-07-25 08:20] LABS: ALT 30 U/L (9-52); AST 22 U/L (14-36); Albumin 3.4 g/dL (3.5-5.0); Alkaline Phosphatase 90 U/L (38-126); Amylase 42 U/L (30-110); Anion Gap 6 mmol/L; Blood Urea Nitrogen 8 mg/dL (7-17); Calcium 9.3 mg/dL (8.4-10.2); Carbon Dioxide 30 mmol/L (22-30); Chloride 105 mmol/L (98-107); Glucose 80 mg/dL (74-99); Lipase 87 U/L (23-300); Sodium 141 mmol/L (137-145); Total Bilirubin 0.3 mg/dL (0.2-1.3)
[2018-07-25] MEDS: LEVOFLOXACIN 500 MG TAB PO SCH ×2 (10:26→10:53)
--- NOTE | 2018-07-25 18:33 | CONS ---
CONSULTATION DATE OF SERVICE: 07/25/2018. REASON FOR CONSULTATION: Fever and need for antibiotic. HISTORY OF PRESENT ILLNESS: The patient is a 63-year-old female who was transferred from an outside facility where the patient presented with black tarry stools. The patient did give a history of some site of infection that has been in head and neck region. Initially being treated with oral clindamycin thinking it was related to one of her infected teeth. Did not respond to it. Subsequently was given a course of oral Zithromax. The patient said she had some improvement. However, after she stopped the Zithromax, the symptoms came back, which have been nonspecific and generalized in head and neck, which is more of a pain, but no significant other URI symptoms. The patient was given another course of oral Zithromax. An MRI of the head and neck area was ordered which was not completed. The patient also received 2 courses of the prednisone along with antibiotic. She started having black tarry stools but denies having any diarrhea with some crampy lower abdominal pain 3 to 4/10, and no radiation. Some nausea but no vomiting. No fever at home. With these symptoms, the patient presented to an outside facility and subsequently the patient had been transferred to the [facility] for further evaluation. Patient has been evaluated by the GI. The patient did have an EGD completed on July 23 which was noticed to have nonbleeding superficial ulceration at the anastomosis site. No evidence of any bleeding. The patient on presentation to the hospital, hemoglobin has been 11.6, however, has been staying around 9.3-9.9 and has not received any transfusion. The patient who was afebrile on presentation did have a low-grade fever of 100.1 on July 23 and 100.3 around mid day on July 23. No fever yesterday or today has been recorded. The patient was started on Levaquin which the patient is refusing. Infectious Disease was consulted for further recommendation regarding antibiotic therapy. The patient has been complaining of some pain to the right ear area, but no drainage from it. No other URI symptoms. No chest pain, shortness of breath. Occasional cough. No abdominal pain and did not have any bowel movement. The patient has been admitted to this facility. The patient did have a chest x-ray completed that was chronic appearing changes without any acute cardiopulmonary process. REVIEW OF SYSTEMS: CONSTITUTIONAL: Positive for weakness. No high-grade fever. EYES: No complaint. ENT: As per HPI. RESPIRATORY: No complaint. CARDIOVASCULAR: No complaint. GENITOURINARY: No complaint. GASTROINTESTINAL: As per HPI. MUSCULOSKELETAL: No complaint. PSYCHOLOGICAL: No complaint. ENDOCRINE: No complaint. NEUROLOGIC: No complaint. PAST MEDICAL HISTORY: [place], anxiety, depression, panic disorder. PAST SURGICAL HISTORY: Bariatric surgery, cholecystectomy, ear surgery, hernia repair, tonsillectomy. SOCIAL HISTORY: Current everyday smoker. Denies drinking or drug use. FAMILY HISTORY: No pertinent findings noticed. ALLERGIES: TO MULTIPLE MEDICATIONS INCLUDE PENICILLIN, AVELOX, SULFA, TETRACYCLINE. MEDICATION: Currently include the patient is on Tylenol, [place], Xanax, TUMs, Vitamin D2, heparin, Levaquin. She has not been taking Claritin, melatonin, Narcan, nicotine patch, Zofran, Protonix, Paxil, Carafate. EXAMINATION: Blood pressure is 142/78 with a pulse of 68, temperature 98.2. She is 97% on room air. General description is a middle-aged female lying in bed in no distress. No tachypnea or accessory muscle of respiration use. HEENT: Shows slight pallor. No scleral icterus. Oral mucosa membrane is dry. No pharyngeal erythema or thrush. NECK: Trachea central, no thyromegaly. LUNGS: Unlabored breathing. Clear to auscultation with crackles. HEART: S1, S2. Regular rate and rhythm. ABDOMEN: Soft, no tenderness. No guarding, no rigidity. EXTREMITIES: No edema feet. SKIN EXAMINATION: No rash or mass palpable. NEUROLOGICAL: Patient awake, alert, oriented. Mood and affect normal. Ears could not be examined because of nonavailability of the functioning otoscope on the floor. LABS: Hemoglobin is 9.8, white count 3.4 with a BUN of 8, creatinine 0.61. Electrolytes have been normal. UA has been negative. Chest x-ray was negative for pneumonia. DIAGNOSTIC IMPRESSION AND PLAN: 1. Patient with low-grade fever in this patient has been admitted hospital for a GI bleed. The patient has been complaining of some pain to the right ear with question of possible URI to be the likely source. Clinically doubt bacterial infection. The patient currently no fever and no elevated white count and no other clinical focus of infection. Lungs clear to auscultation. No evidence of any pneumonia. UA was negative. Abdomen was soft on clinical examination and there was no further bowel movement since her black tarry stool. 2. Patient with multiple antibiotic allergies that does limit the number of antibiotics that can be safely used. PLAN: 1. We will monitor the patient closely off antibiotic therapy. 2. If the patient spikes any fever to re-culture her before starting oral antibiotic. This was explained to the patient in detail. All questions were sought and answered. MMODL / IJN: [id number] /
--- NOTE | 2018-07-25 20:48 | DS ---
DISCHARGE SUMMARY DATE OF SERVICE: 07/25/2018 FINAL DIAGNOSES: 1. Possible upper gastrointestinal bleeding with acute blood loss anemia, status post esophagogastroduodenoscopy showing non-bleeding superficial ulceration of the Bernice- en-Y anastomotic site with biopsies taken. 2. Abdominal pain, possible acute pancreatitis, improved. 3. History of bariatric surgery. 4. Anxiety, depression, panic disorder history. 5. Continued ongoing nicotine dependence. 6. Coronary artery disease with history of myocardial infarction. 7. Fevers, improved. DISCHARGE DISPOSITION: The patient will be discharged in stable condition with guarded prognosis. HISTORY OF PRESENT ILLNESS: This 63-year-old woman with a past medical history of multiple medical problems was admitted with upper GI bleed. Patient had endoscopy that showed superficial ulceration of the Bernice-en-Y anastomotic site by Gastroenterology. The patient had multiple other medical issues. Patient was seen by multiple consultants. Repeat chest x-ray showed chronic-appearing changes. On exam, vitals are stable. CARDIOVASCULAR SYSTEM: S1, S2 muffled. ABDOMEN: Soft. NERVOUS SYSTEM: No focal deficit. The patient also had significant changes of sinusitis and was recommended ENT evaluation. Otherwise, the patient is discharged in stable condition. DISCHARGE ADVICE AND MEDICATIONS: 1. Diet is cardiac. 2. Activity limited until followup. 3. Follow up with Dr. Lincoln Dodd in 2-3 days. 4. Follow up with ENT and Gastroenterology as recommended. 5. Xanax 0.5 t.i.d. p.r.n. 6. Tums p.r.n. 7. Celexa 10 mg p.o. daily. 8. Vitamin D2 50,000 . 9. [place] 10 mg q.6 p.r.n. 10.Claritin 10 mg p.o. daily. 11.Paxil 20 mg p.o. daily. 12.Tobramycin eye drops. 13.Habitrol 14 daily. 14.Protonix 40 mg p.o. daily. Once again, the patient will be discharged in stable condition with guarded prognosis. MMODL / IJN: [id number] / MTDD
[2018-07-26] MEDS ORDERED: ERGOCALCIFEROL 50,000 UNIT CAP PO SCH (09:00)
== END 2018-07-25 15:50 | disposition home or self-care (01) | DRG 377 ==
LOC: EC 02:26 → 4MS4W 03:25
PROVIDERS: ADMIT Hospitalist; ATTEND Hospitalist
PROC: 0DBA8ZX Excision of Jejunum, Via Natural or Artificial Opening Endoscopic, Diagnostic (ICD-10-PCS; 2018-07-23)
PROC: 0DB38ZX Excision of Lower Esophagus, Via Natural or Artificial Opening Endoscopic, Diagnostic (ICD-10-PCS; principal; 2018-07-23 12:40)
DX: K92.2 Gastrointestinal hemorrhage, unspecified (principal); K85.90 Acute pancreatitis without necrosis or infection, unspecified; D62 Acute posthemorrhagic anemia; F17.200 Nicotine dependence, unspecified, uncomplicated; F32.9 Major depressive disorder, single episode, unspecified; F41.0 Panic disorder [episodic paroxysmal anxiety]; I25.10 Atherosclerotic heart disease of native coronary artery without angina pectoris; I25.2 Old myocardial infarction; K21.9 Gastro-esophageal reflux disease without esophagitis; K59.00 Constipation, unspecified; G89.29 Other chronic pain; J06.9 Acute upper respiratory infection, unspecified; K28.9 Gastrojejunal ulcer, unspecified as acute or chronic, without hemorrhage or perforation; M54.9 Dorsalgia, unspecified; Z98.84 Bariatric surgery status; Z87.11 Personal history of peptic ulcer disease; Z90.49 Acquired absence of other specified parts of digestive tract; Z79.899 Other long term (current) drug therapy; Z88.6 Allergy status to analgesic agent; Z88.1 Allergy status to other antibiotic agents; Z88.5 Allergy status to narcotic agent; Z88.0 Allergy status to penicillin; Z88.2 Allergy status to sulfonamides; Z88.8 Allergy status to other drugs, medicaments and biological substances
CPT/HCPCS: 43239; 71046; 76705; 80053; 80061; 81001; 82150; 83690; 85025; 85610; 86850; 86900; 86901; 87040; 87086; 88305; 96374; 96375; 99285

== ENCOUNTER 2018-10-10 12:56 | Inpatient (IN) | payer MEDICARE ==
[2018-10-10] MEDS ORDERED: SODIUM CHLORIDE 0.9% 1,000 ML IV STA ×2 (13:50)
[2018-10-10] MEDS ORDERED: HYDROmorphone 1 MG/ML 1 ML SYRINGE IVP STA (13:52)
[2018-10-10] MEDS ORDERED: ONDANSETRON 4 MG/2 ML VIAL IVP STA (13:52)
--- NOTE | 2018-10-10 14:14 | ED ---
Abdominal Pain HPI - General Chief Complaint: Abdominal Pain Stated Complaint: Abd Pain Time Seen by Provider: 10/10/18 13:19 Source: patient, RN notes reviewed, old records reviewed Mode of arrival: ambulatory Limitations: no limitations - History of Present Illness Initial Comments: Is a 63-year-old female who presents emergency Department with 1 week of lower abdominal pain returns her back. She reports that she has had severe pain. She was seen in [facility] yesterday and had normal CT blood work and urinalysis. Patient states that she would see her primary care doctor today who sent her here for further evaluation. Patient reports that she feels like her abdominal pain is worse in the left lower quadrant. She reports she's been nauseated but no vomiting. She denies any changes in her stool. She's had a history of loss of appetite. She has a history of a previous GI bleed but denies any blood per rectum. As well as a history of pancreatitis. - Related Data Home Medications Medication Instructions Recorded Confirmed ALPRAZolam [Xanax] 0.5 mg PO QID 07/22/18 10/10/18 HYDROcodone/APAP 10-325MG [[place] 1 tab PO QID PRN 07/22/18 10/10/18 10-325] Calcium Carbonate [Calcium] 600 mg PO DAILY 10/10/18 10/10/18 Cyanocobalamin (Vitamin B-12) 2,500 mcg PO DAILY 10/10/18 10/10/18 [Vitamin B12] Metoprolol Succinate (ER) [Toprol 25 mg PO DAILY 10/10/18 10/10/18 Xl] Omeprazole [PriLOSEC] 20 mg PO DAILY 10/10/18 10/10/18 Sertraline [Zoloft] 100 mg PO DAILY 10/10/18 10/10/18 Allergies Allergy/AdvReac Type Severity Reaction Status Date / Time diazepam [From Valium] Allergy Confusion Verified 10/10/18 13:38 diltiazem [From Cardizem] Allergy Swelling Verified 10/10/18 13:38 moxifloxacin [From Avelox] Allergy Unknown Verified 10/10/18 13:38 Penicillins Allergy Unknown Verified 10/10/18 13:38 Sulfa (Sulfonamide Allergy Unknown Verified 10/10/18 13:38 Antibiotics) tapentadol [From Nucynta] Allergy Nausea & Verified 10/10/18 13:38 Vomiting & Diarrhea tetracycline Allergy Rash/Hives Verified 10/10/18 13:38 tramadol [From Ultram] Allergy Unknown Verified 10/10/18 13:38 NSAIDS (Non-Steroidal AdvReac Unknown Verified 10/10/18 13:38 Anti-Inflamma pantoprazole [From Protonix] AdvReac Unknown Verified 10/10/18 13:38 Review of Systems ROS Statement: Those systems with pertinent positive or pertinent negative responses have been documented in the HPI. ROS Other: All systems not noted in ROS Statement are negative. Past Medical History Past Medical History: GI Bleed, Myocardial Infarction ([place]) Last Myocardial Infarction Date:: History of Any Multi-Drug Resistant Organisms: None Reported Past Surgical History: Bariatric Surgery, Cholecystectomy, Ear Surgery, Hernia Repair, Orthopedic Surgery, Tonsillectomy Past Psychological History: Anxiety, Depression, Panic Disorder Smoking Status: Current every day smoker Past Alcohol Use History: None Reported Past Drug Use History: None Reported General Exam - General Exam Comments Initial Comments: This is a 63-year-old female. Alert and oriented. Patient appears in no acute distress. Limitations: no limitations General appearance: alert, in no apparent distress Head exam: Present: atraumatic, normocephalic, normal inspection Eye exam: Present: normal appearance, PERRL, EOMI. Absent: scleral icterus, conjunctival injection, periorbital swelling ENT exam: Present: normal exam, normal oropharynx, mucous membranes moist Neck exam: Present: normal inspection. Absent: tenderness, meningismus, lymphadenopathy Respiratory exam: Present: normal lung sounds bilaterally. Absent: respiratory distress, wheezes, rales, rhonchi, stridor Cardiovascular Exam: Present: regular rate, normal rhythm, normal heart sounds. Absent: systolic murmur, diastolic murmur, rubs, gallop, clicks GI/Abdominal exam: Present: soft, tenderness (Right lower quadrant left lower quadrant tenderness), normal bowel sounds. Absent: distended, guarding, rebound , rigid Rectal exam: Present: normal inspection, normal rectal tone, hemorrhoids (Small nonbleeding hemorrhoid.) Extremities exam: Present: normal inspection, full ROM, normal capillary refill. Absent: tenderness, pedal edema, joint swelling, calf tenderness Back exam: Present: normal inspection Neurological exam: Present: alert, oriented X3, CN II-XII intact Psychiatric exam: Present: normal affect, normal mood Skin exam: Present: warm, dry, intact, normal color. Absent: rash Course Vital Signs 10/10/18 10/10/18 12:58 15:01 Temperature 99.0 F Pulse Rate 83 87 Respiratory 18 16 Rate Blood Pressure 193/71 161/70 O2 Sat by Pulse 99 96 Oximetry Medical Decision Making - Medical Decision Making This 3-year-old female presents from primary care physician's office for chief complaint of persistent abdominal pain. His been going on for 1 week. She states that it does feel similar to when she's had a previous ovarian cyst versus. She had normal blood work and a normal computed tomography scan yesterday. Again her lab work was reviewed and unremarkable. She continues to complain of persistent pain. She does take chronic pain medication. Patient's had no vomiting emergency department. Discussed case with Dr. Weiner. He discussed this Dr. Kang. The grandson that the Patient for observation with consults to on-call surgery. Patient agrees to admission. Started on IV fluids. - Lab Data Result diagrams: 10/10/18 14:05 10/10/18 14:05 Lab Results 10/10/18 10/10/18 10/10/18 Range/Units 14:05 14:05 14:05 WBC 5.1 (3.8-10.6) k/uL RBC 3.49 L (3.80-5.40) m/uL Hgb 10.4 L (11.4-16.0) gm/dL Hct 32.3 L (34.0-46.0) % MCV 92.7 (80.0-100.0) fL MCH 29.8 (25.0-35.0) pg MCHC 32.2 (31.0-37.0) g/dL RDW 13.7 (11.5-15.5) % Plt Count 265 (150-450) k/uL Neutrophils % 71 % Lymphocytes % 22 % Monocytes % 4 % Eosinophils % 1 % Basophils % 0 % Neutrophils # 3.6 (1.3-7.7) k/uL Lymphocytes # 1.1 (1.0-4.8) k/uL Monocytes # 0.2 (0-1.0) k/uL Eosinophils # 0.1 (0-0.7) k/uL Basophils # 0.0 (0-0.2) k/uL Hypochromasia Slight PT (9.0-12.0) sec INR (<1.2) APTT (22.0-30.0) sec Sodium 140 (137-145) mmol/L Potassium 4.5 (3.5-5.1) mmol/L Chloride 104 (98-107) mmol/L Carbon Dioxide 28 (22-30) mmol/L Anion Gap 8 mmol/L BUN 8 (7-17) mg/dL Creatinine 0.54 (0.52-1.04) mg/dL Est GFR (CKD-EPI)AfAm >90 (>60 ml/min/1.73 sqM) Est GFR (CKD-EPI)NonAf >90 (>60 ml/min/1.73 sqM) Glucose 93 (74-99) mg/dL Plasma Lactic Acid [place] 0.9 (0.7-2.0) mmol/L Calcium 9.7 (8.4-10.2) mg/dL Total Bilirubin 0.4 (0.2-1.3) mg/dL AST 35 (14-36) U/L ALT 29 (9-52) U/L Alkaline Phosphatase 112 (38-126) U/L Total Protein 7.6 (6.3-8.2) g/dL Albumin 4.5 (3.5-5.0) g/dL Amylase 59 (30-110) U/L Lipase 262 (23-300) U/L Urine Color Urine Appearance (Clear) Urine pH (5.0-8.0) Ur Specific Belt (1.001-1.035) Urine Protein (Negative) Urine Glucose (UA) (Negative) Urine Ketones (Negative) Urine Blood (Negative) Urine Nitrite (Negative) Urine Bilirubin (Negative) Urine Urobilinogen (<2.0) mg/dL Ur Leukocyte Esterase (Negative) 10/10/18 10/10/18 Range/Units 14:05 14:05 WBC (3.8-10.6) k/uL RBC (3.80-5.40) m/uL Hgb (11.4-16.0) gm/dL Hct (34.0-46.0) % MCV (80.0-100.0) fL MCH (25.0-35.0) pg MCHC (31.0-37.0) g/dL RDW (11.5-15.5) % Plt Count (150-450) k/uL Neutrophils % % Lymphocytes % % Monocytes % % Eosinophils % % Basophils % % Neutrophils # (1.3-7.7) k/uL Lymphocytes # (1.0-4.8) k/uL Monocytes # (0-1.0) k/uL Eosinophils # (0-0.7) k/uL Basophils # (0-0.2) k/uL Hypochromasia PT 10.5 (9.0-12.0) sec INR 1.1 (<1.2) APTT 23.1 (22.0-30.0) sec Sodium (137-145) mmol/L Potassium (3.5-5.1) mmol/L Chloride (98-107) mmol/L Carbon Dioxide (22-30) mmol/L Anion Gap mmol/L BUN (7-17) mg/dL Creatinine (0.52-1.04) mg/dL Est GFR (CKD-EPI)AfAm (>60 ml/min/1.73 sqM) Est GFR (CKD-EPI)NonAf (>60 ml/min/1.73 sqM) Glucose (74-99) mg/dL Plasma Lactic Acid [place] (0.7-2.0) mmol/L Calcium (8.4-10.2) mg/dL Total Bilirubin (0.2-1.3) mg/dL AST (14-36) U/L ALT (9-52) U/L Alkaline Phosphatase (38-126) U/L Total Protein (6.3-8.2) g/dL Albumin (3.5-5.0) g/dL Amylase (30-110) U/L Lipase (23-300) U/L Urine Color Light Yellow Urine Appearance Clear (Clear) Urine pH 7.5 (5.0-8.0) Ur Specific Belt 1.004 (1.001-1.035) Urine Protein Negative (Negative) Urine Glucose (UA) Negative (Negative) Urine Ketones Negative (Negative) Urine Blood Negative (Negative) Urine Nitrite Negative (Negative) Urine Bilirubin Negative (Negative) Urine Urobilinogen <2.0 (<2.0) mg/dL Ur Leukocyte Esterase Negative (Negative) - Radiology Data Radiology results: report reviewed Review patient's CT performed at [facility] yesterday at 5:[address] findings show previous cholecystectomy. The common bile duct was mildly dilated however it was no sign of mass or obstruction. There is no acute abnormality in the abdomen and pelvis. Disposition Clinical Impression: Chronic abdominal pain Disposition: ADMITTED IP TO THIS HOSP Condition: Stable Is patient prescribed a controlled substance at d/c from ED?: No Referrals: Lincoln Dodd MD [Primary Care Provider] - 1-2 days Time of Disposition: 16:41
[2018-10-10 14:28] LABS: Appearance,Urine Clear (Clear); Bilirubin,Urine Negative (Negative); Blood,Urine Negative (Negative); Color,Urine Light Yellow; Glucose,Urine (UA) Negative (Negative); Ketones,Urine Negative (Negative); Leukocyte Esterase,Urine Negative (Negative); Nitrite,Urine Negative (Negative); PH, Urine 7.5 (5.0-8.0); Protein,Urine Negative (Negative); Specific Gravity,Urine 1.004 (1.001-1.035); Urobilinogen,Urine <2.0 mg/dL (<2.0)
[2018-10-10 14:29] LABS: Basophils % (A) 0 %; Eosinophils # (A) 0.1 k/uL (0-0.7); Eosinophils % (A) 1 %; HCT 32.3 % (34.0-46.0); HGB 10.4 gm/dL (11.4-16.0); Hypochromasia Slight; Lymphocytes # (A) 1.1 k/uL (1.0-4.8); Lymphocytes % (A) 22 %; MCH 29.8 pg (25.0-35.0); MCHC 32.2 g/dL (31.0-37.0); MCV 92.7 fL (80.0-100.0); Mean Platelet Volume 7.4; Monocytes # (A) 0.2 k/uL (0-1.0); Monocytes % (A) 4 %; Neutrophils # (A) 3.6 k/uL (1.3-7.7); Neutrophils % (A) 71 %; Platelet Count 265 k/uL (150-450); RBC 3.49 m/uL (3.80-5.40); RDW 13.7 % (11.5-15.5); WBC 5.1 k/uL (3.8-10.6)
[2018-10-10 14:38] LABS: ALT 29 U/L (9-52); AST 35 U/L (14-36); Albumin 4.5 g/dL (3.5-5.0); Alkaline Phosphatase 112 U/L (38-126); Amylase 59 U/L (30-110); Anion Gap 8 mmol/L; Blood Urea Nitrogen 8 mg/dL (7-17); Calcium 9.7 mg/dL (8.4-10.2); Carbon Dioxide 28 mmol/L (22-30); Chloride 104 mmol/L (98-107); Glucose 93 mg/dL (74-99); Lipase 262 U/L (23-300); Potassium 4.5 mmol/L (3.5-5.1); Sodium 140 mmol/L (137-145); Total Bilirubin 0.4 mg/dL (0.2-1.3); Total Protein 7.6 g/dL (6.3-8.2)
[2018-10-10 14:46] LABS: INR 1.1 (<1.2); Partial Thromboplastin Time 23.1 sec (22.0-30.0); Prothrombin Time 10.5 sec (9.0-12.0)
[2018-10-10] MEDS ORDERED: ACETAMINOPHEN TAB 325 MG TAB PO PRN (16:42)
[2018-10-10] MEDS ORDERED: NALOXONE 0.4 MG/ML 1 ML VIAL IV PRN (16:42)
[2018-10-10] MEDS ORDERED: IBUPROFEN 400 MG TAB PO PRN (16:42)
[2018-10-10] MEDS ORDERED: KETOROLAC 30 MG/ML 1 ML VIAL IVP PRN (16:42)
[2018-10-10] MEDS: SODIUM CHLORIDE 0.9% 1,000 ML IV SCH (17:46)
[2018-10-10] MEDS: HYDROcodone/APAP 10-325MG 1 EACH TAB PO PRN (17:49)
[2018-10-10] MEDS ORDERED: TEMAZEPAM 15 MG CAP PO PRN (18:42)
--- NOTE | 2018-10-10 19:39 | XR ---
EXAMINATION TYPE: XR abdomen acute w cxr, total 3 views DATE OF EXAM: 10/10/2018 COMPARISON: NONE HISTORY: Abdominal pain, GI bleed TECHNIQUE: Upright chest, upright abdomen, supine abdominal pelvic views obtained. FINDINGS: The chest is negative for acute findings. There is no evidence for pneumoperitoneum or pneumatosis. The bowel gas pattern is unremarkable as th ere is air throughout nondilated small and large bowel. No sizeable air fluid levels. No mass effects are seen. No unusual calcifications. IMPRESSION: Negative examination.
[2018-10-10 20:29] LABS: Creatine Kinase 63 U/L (30-135)
[2018-10-10 20:43] LABS: Creatine Kinase MB 0.9 ng/mL (0.0-2.4); Troponin I <0.012 ng/mL (0.000-0.034)
[2018-10-10] MEDS: valACYclovir 500 MG TAB PO SCH (21:15)
--- NOTE | 2018-10-10 21:17 | HP ---
HISTORY AND PHYSICAL DATE OF SERVICE: 10/10/2018 CHIEF COMPLAINT: Abdominal pain and rash. HISTORY OF PRESENT ILLNESS: This 63-year-old woman with a past medical history of multiple medical problems including GI bleed, history of myocardial infarction, history of bariatric surgery, history of hernia surgery, anxiety and depression, being followed by Dr. Lincoln Dodd in the outpatient setting was having abdominal pain for the last 5 days. Pain was around the umbilicus and as well as the lower part of the abdomen. Patient also noted to have some lesions in the perineal region and also because of lack of improvement the patient came to Dr. Dodd's office and subsequently was referred to [facility] for further evaluation and treatment. A CT scan of the abdomen done elsewhere did not show any acute abnormality. There is no history of fever, rigors, chills. No history of headache, loss of consciousness or seizures at this time. The patient was previously admitted with GI bleed and blood loss anemia. EGD showed nonbleeding superficial ulceration the Bernice-en-Y anastomotic site and biopsy was taken. The surgical biopsies showed anastomotic ulcer. Otherwise, there is no history of fever, rigors. No headache, loss of consciousness, seizures. PAST MEDICAL HISTORY: History of gastrointestinal bleed with secondary to anastomotic ulcer, myocardial infarction, bariatric surgery, cholecystectomy. MEDICATIONS: Prior to admission include home medications are: 1. Zoloft 100 mg p.o. daily. 2. Prilosec 20 mg daily. 3. Toprol-XL 25 mg daily. 4. Vitamin B2 2.5 mcg p.o. daily. 5. Calcium 600 mg p.o. daily. 6. [place] 10 mg q.i.d. p.r.n. 7. Xanax 0.5 mg p.o. b.i.d. ALLERGIES: VALIUM, CARDIZEM, AVELOX, PENICILLIN, ANTIBIOTIC, NUCYNTA, , ULTRAM, NSAID AND PROTONIX. FAMILY HISTORY: No history of heart disease or strokes in the family. SOCIAL HISTORY: History of smoking. No history of alcohol intake. REVIEW OF SYSTEMS: ENT: No diminished hearing or vision. CARDIOVASCULAR: No angina. RESPIRATORY: No cough. GI: As mentioned earlier. : No dysuria. NERVOUS SYSTEM: No numbness or weakness. ALLERGY/IMMUNOLOGY: No asthma. MUSCULOSKELETAL: As mentioned earlier. HEMATOLOGY/ONCOLOGY: No history of anemia. ENDOCRINE: No history of diabetes or hypothyroidism. CONSTITUTIONAL: As mentioned earlier. DERMATOLOGY: Negative. RHEUMATOLOGY: Negative. PSYCHIATRY: As mentioned earlier. PHYSICAL EXAMINATION: Alert, oriented x3. Pulse 90, blood pressure 140/72, respiratory 20, temperature 99 degrees, pulse ox 98% on room air. HEENT: Conjunctivae normal. Oral mucosa moist. Neck is no jugular venous distention. No carotid bruit. No lymph node enlargement. CARDIOVASCULAR: S1, S2. RESPIRATORY: Breath sounds diminished in the bases. A few scattered rhonchi. No crackles. ABDOMEN: Soft. Mild diffuse tenderness in the epigastrium and in the lower part of the abdomen present and sores also present in the perineal area. LEGS: No edema, no swelling. NERVOUS SYSTEM: Higher functions as mentioned earlier. Moves all 4 limbs. No focal motor sensory deficits. LYMPHATICS: No lymphadenopathy in the neck, axillae, groin. SKIN: No ulcer, rashes or bleeding. LAB STUDIES: WBC 5.2, hemoglobin 10.4. CMP noted. ASSESSMENT: 1. Lower abdominal pain for evaluation, rule out intestinal adhesions. 2. Anemia, normocytic anemia of chronic disease. 3. History of cholecystectomy. 4. History of bariatric surgery, Bernice-en-Y. 5. History of recent GI bleed and anastomotic ulcer. 6. History of myocardial infarction. 7. History of degenerative joint disease. 8. Anxiety and depression. 9. History of panic disorder. 10.History of nicotine dependence. RECOMMENDATIONS AND DISCUSSION: In this 63-year-old woman who presented with multiple complex medical issues, we will monitor the patient closely. Continue the current management and symptomatic treatment. Obtain a surgical evaluation. Monitor closely. Otherwise, I would also recommend resume the home medications. I would also recommend a course of Valtrex. Otherwise, we will monitor the patient closely. Prognosis guarded because of multiple complex medical issues. Symptomatic treatment of the pain also will be provided. Further recommendations to follow. CT scan reviewed. I would also recommend abdominal flatplate also. See orders. Further recommendations to follow. A copy of dictation forwarded to Dr. Lincoln Dodd who is the primary physician. MMODL / IJN: [id number] / MTDD
[2018-10-10] MEDS: HEPARIN SODIUM,PORCINE 5,000 UNIT/ML 1 ML VIAL SQ SCH (21:18)
[2018-10-10] MEDS: ALPRAZolam 0.5 MG TAB PO SCH ×2 (21:19→21:28)
[2018-10-10] MEDS: HYDROmorphone 1 MG/ML 1 ML SYRINGE IVP PRN (21:19)
[2018-10-10] MEDS: NICOTINE 14MG/24HR PATCH TRANSDERM SCH (21:28)
[2018-10-11] MEDS: HYDROcodone/APAP 10-325MG 1 EACH TAB PO PRN ×4 (01:14→20:30)
[2018-10-11 03:54] LABS: Creatine Kinase 52 U/L (30-135)
[2018-10-11 04:06] LABS: Creatine Kinase MB 0.6 ng/mL (0.0-2.4); Troponin I <0.012 ng/mL (0.000-0.034)
[2018-10-11] MEDS: HYDROmorphone 1 MG/ML 1 ML SYRINGE IVP PRN ×5 (04:37→22:21)
[2018-10-11] MEDS: valACYclovir 500 MG TAB PO SCH ×2 (05:16→17:52)
[2018-10-11 07:22] LABS: Basophils % (A) 0 %; Eosinophils # (A) 0.1 k/uL (0-0.7); Eosinophils % (A) 2 %; HCT 27.3 % (34.0-46.0); Hypochromasia Slight; Lymphocytes # (A) 1.5 k/uL (1.0-4.8); Lymphocytes % (A) 39 %; MCH 29.9 pg (25.0-35.0); MCHC 31.9 g/dL (31.0-37.0); MCV 93.7 fL (80.0-100.0); Mean Platelet Volume 7.1; Monocytes # (A) 0.3 k/uL (0-1.0); Monocytes % (A) 7 %; Neutrophils # (A) 1.9 k/uL (1.3-7.7); Neutrophils % (A) 49 %; Platelet Count 232 k/uL (150-450); RBC 2.92 m/uL (3.80-5.40); RDW 13.6 % (11.5-15.5); WBC 3.9 k/uL (3.8-10.6)
[2018-10-11 07:27] LABS: HGB 8.7 gm/dL (11.4-16.0)
[2018-10-11 07:33] LABS: Anion Gap 3 mmol/L; Blood Urea Nitrogen 9 mg/dL (7-17); Calcium 8.7 mg/dL (8.4-10.2); Carbon Dioxide 28 mmol/L (22-30); Chloride 107 mmol/L (98-107); Glucose 85 mg/dL (74-99); Potassium 4.3 mmol/L (3.5-5.1); Sodium 138 mmol/L (137-145)
[2018-10-11 07:46] LABS: Creatine Kinase 47 U/L (30-135)
[2018-10-11 07:59] LABS: Creatine Kinase MB 0.6 ng/mL (0.0-2.4); Troponin I <0.012 ng/mL (0.000-0.034)
[2018-10-11] MEDS ORDERED: NON-FORMULARY DRUG (Omeprazole 20 MG) PO SCH (09:00)
[2018-10-11] MEDS: CALCIUM CARBONATE 500 MG CHEWABLE PO SCH (09:57)
[2018-10-11] MEDS: SERTRALINE 100 MG TAB PO SCH (09:57)
[2018-10-11] MEDS: PANTOPRAZOLE 40 MG/10 ML VIAL IV SCH ×2 (09:57→09:59)
[2018-10-11] MEDS: HEPARIN SODIUM,PORCINE 5,000 UNIT/ML 1 ML VIAL SQ SCH ×3 (09:57→22:23)
[2018-10-11] MEDS: METOPROLOL SUCCINATE (ER) 25 MG TAB.ER.24H PO SCH (09:57)
[2018-10-11] MEDS: ALPRAZolam 0.5 MG TAB PO SCH ×4 (10:05→22:23)
[2018-10-11 11:35] VITALS: BMI 25.5
--- NOTE | 2018-10-11 12:27 | P.GSCN ---
History of Present Illness Consult date: 10/11/18 Reason for Consult: Lower abdominal pain History of present illness: Patient presents to the hospital with complaints of pain in the lower abdomen. This began 5-6 days ago. Pain seems to be aggravated after voiding. Denies any dysuria or hematuria. Pain was initially more midline but has moved more to the lower left quadrant. Patient also has had some issues with skin infections in the perineum and groin which she states she has dealt with for many years. Appetite somewhat diminished. Normal bowel movements. Denies rectal bleeding or melena. Was seen at [facility] 2 nights ago and had a CAT scan which was reportedly normal. Does not feel a bulge. No history of similar events. She is concerned this may be related to her left ovary. She had her right ovary removed in the past. Some nausea but no vomiting. Slight weight loss. She does have a history of pancreatitis. History of Bernice- en-Y bypass. Review of Systems The patient denies any acute changes in vision or hearing, no dysphagia or odynophagia, no chest pain or shortness of breath, no dysuria or hematuria, no headache, no runny nose, no rectal bleeding or melena, no unexplained weight loss Past Medical History Past Medical History: Coronary Artery Disease (CAD), CVA/TIA, GERD/Reflux, GI Bleed, Hypertension, Myocardial Infarction ([place]) Additional Past Medical History / Comment(s): pancreatitist,bronchitis, shingles aug 2018 "10 lesions on the brain". ddd(cervical and lumbar), murmur, start of cataracts Last Myocardial Infarction Date:: History of Any Multi-Drug Resistant Organisms: None Reported Past Surgical History: Appendectomy, Bariatric Surgery, Cholecystectomy, Ear Surgery, Heart Catheterization, Orthopedic Surgery, Tonsillectomy Additional Past Surgical History / Comment(s): egd Smoking Status: Current every day smoker - Past Family History Mother Family Medical History: CVA/TIA Additional Family Medical History / Comment(s): emphysema. age 80 Father Family Medical History: Myocardial Infarction ([place]) Additional Family Medical History / Comment(s): age 47 Medications and Allergies Home Medications Medication Instructions Recorded Confirmed Type ALPRAZolam [Xanax] 0.5 mg PO QID 07/22/18 10/10/18 History HYDROcodone/APAP 10-325MG [[place] 1 tab PO QID PRN 07/22/18 10/10/18 History 10-325] Calcium Carbonate [Calcium] 600 mg PO DAILY 10/10/18 10/10/18 History Cyanocobalamin (Vitamin B-12) 2,500 mcg PO DAILY 10/10/18 10/10/18 History [Vitamin B12] Metoprolol Succinate (ER) [Toprol 25 mg PO DAILY 10/10/18 10/10/18 History Xl] Omeprazole [PriLOSEC] 20 mg PO DAILY 10/10/18 10/10/18 History Sertraline [Zoloft] 100 mg PO DAILY 10/10/18 10/10/18 History Allergies Allergy/AdvReac Type Severity Reaction Status Date / Time diazepam [From Valium] Allergy Confusion Verified 10/10/18 13:38 diltiazem [From Cardizem] Allergy Swelling Verified 10/10/18 13:38 moxifloxacin [From Avelox] Allergy Unknown Verified 10/10/18 13:38 Penicillins Allergy Unknown Verified 10/10/18 13:38 Sulfa (Sulfonamide Allergy Unknown Verified 10/10/18 13:38 Antibiotics) tapentadol [From Nucynta] Allergy Nausea & Verified 10/10/18 13:38 Vomiting & Diarrhea tetracycline Allergy Rash/Hives Verified 10/10/18 13:38 tramadol [From Ultram] Allergy Unknown Verified 10/10/18 13:38 morphine AdvReac Vomiting Verified 10/10/18 20:07 NSAIDS (Non-Steroidal AdvReac Unknown Verified 10/10/18 13:38 Anti-Inflamma pantoprazole [From Protonix] AdvReac Unknown Verified 10/10/18 13:38 Surgical - Exam Vital Signs Temp Pulse Resp BP Pulse Ox 99.0 F 83 18 193/71 99 10/10/18 12:58 10/10/18 12:58 10/10/18 12:58 10/10/18 12:58 10/10/18 12:58 Physical exam: General: Well-developed, well-nourished HEENT: Normocephalic, sclerae nonicteric Abdomen: Mild left lower quadrant tenderness, no palpable hernia, nondistended Extremities: No edema Neuro: Alert and oriented Results - Labs 10/11/18 07:03 10/11/18 07:03 Abnormal Lab Results - Last 24 Hours (Table) 10/10/18 10/11/18 10/11/18 Range/Units 14:05 07:03 07:03 RBC 3.49 L 2.92 L (3.80-5.40) m/uL Hgb 10.4 L 8.7 L D (11.4-16.0) gm/dL Hct 32.3 L 27.3 L (34.0-46.0) % Creatinine 0.50 L (0.52-1.04) mg/dL Microbiology - Last 24 Hours (Table) 10/10/18 14:05 Urine Culture - Preliminary Urine,Voided Diabetes panel 10/10/18 10/11/18 Range/Units 14:05 07:03 Sodium 140 138 (137-145) mmol/L Potassium 4.5 4.3 (3.5-5.1) mmol/L Chloride 104 107 (98-107) mmol/L Carbon Dioxide 28 28 (22-30) mmol/L BUN 8 9 (7-17) mg/dL Creatinine 0.54 0.50 L (0.52-1.04) mg/dL Glucose 93 85 (74-99) mg/dL Calcium 9.7 8.7 (8.4-10.2) mg/dL AST 35 (14-36) U/L ALT 29 (9-52) U/L Alkaline Phosphatase 112 (38-126) U/L Total Protein 7.6 (6.3-8.2) g/dL Albumin 4.5 (3.5-5.0) g/dL Calcium panel 10/10/18 10/11/18 Range/Units 14:05 07:03 Calcium 9.7 8.7 (8.4-10.2) mg/dL Albumin 4.5 (3.5-5.0) g/dL Pituitary panel 10/10/18 10/11/18 Range/Units 14:05 07:03 Sodium 140 138 (137-145) mmol/L Potassium 4.5 4.3 (3.5-5.1) mmol/L Chloride 104 107 (98-107) mmol/L Carbon Dioxide 28 28 (22-30) mmol/L BUN 8 9 (7-17) mg/dL Creatinine 0.54 0.50 L (0.52-1.04) mg/dL Glucose 93 85 (74-99) mg/dL Calcium 9.7 8.7 (8.4-10.2) mg/dL Adrenal panel 10/10/18 10/11/18 Range/Units 14:05 07:03 Sodium 140 138 (137-145) mmol/L Potassium 4.5 4.3 (3.5-5.1) mmol/L Chloride 104 107 (98-107) mmol/L Carbon Dioxide 28 28 (22-30) mmol/L BUN 8 9 (7-17) mg/dL Creatinine 0.54 0.50 L (0.52-1.04) mg/dL Glucose 93 85 (74-99) mg/dL Calcium 9.7 8.7 (8.4-10.2) mg/dL Total Bilirubin 0.4 (0.2-1.3) mg/dL AST 35 (14-36) U/L ALT 29 (9-52) U/L Alkaline Phosphatase 112 (38-126) U/L Total Protein 7.6 (6.3-8.2) g/dL Albumin 4.5 (3.5-5.0) g/dL Assessment and Plan (1) Chronic abdominal pain Narrative/Plan: Will check pelvic ultrasound. No obvious etiology for the patient's symptoms at this time. We'll follow. Current Visit: Yes Status: Acute Code(s): R10.9 - UNSPECIFIED ABDOMINAL PAIN ; G89.29 - OTHER CHRONIC PAIN SNOMED Code(s): 611394275
[2018-10-11] MEDS: CYANOCOBALAMIN 500 MCG TAB PO SCH (12:48)
[2018-10-11] MEDS: GABAPENTIN 100 MG CAP PO SCH ×2 (13:57→22:20)
[2018-10-11] MEDS ORDERED: PEG 3350-NA SULF,BICARB,CL/KCL 4,000 ML BOTTLE PO ONE (14:15)
[2018-10-11] MEDS: SODIUM CHLORIDE 0.9% 1,000 ML IV SCH (15:16)
--- NOTE | 2018-10-11 15:47 | US ---
EXAMINATION TYPE: US pelvic complete transvag DATE OF EXAM: 10/11/2018 COMPARISON: NONE CLINICAL HISTORY: Lower abdominal pain left greater than right. TECHNIQUE: Transvaginal (TV) and Transabdominal (TA) . Transabdominal sonographic images of the pelvis were acquired. Transvaginal sonographic images were medically necessary to better assess the following anatomy: Uterus and Ovaries Date of LMP: Postmenopausal EXAM MEASUREMENTS: Uterus: 4.3 x 1.6 x 3.2 cm Endometrial Stripe: 0.1 cm Right Ovary: Not visualized Left Ovary: Not visualized, pt believes it is surgically absent Limited due to peristalsing bowel, had pt drink 32 oz of water and bladder was still not fully distended, TV performed to better evaluate. 1. Uterus: Anteverted wnl 2. Endometrium: wnl 3. Right Ovary: Obscured by overlying peristalsing bowel gas 4. Left Ovary: Obscured by overlying peristalsing bowel gas, possibly surgically absent 5. Bilateral Adnexa: Obscured by overlying peristalsing bowel gas 6. Posterior cul-de-sac: wnl IMPRESSION: 1. Sonographically normal-appearing uterus and endometrium. 2. Nonvisualization of the ovaries. MTDD
[2018-10-11] MEDS: NICOTINE 14MG/24HR PATCH TRANSDERM SCH (17:51)
--- NOTE | 2018-10-11 23:42 | PN ---
PROGRESS NOTE DATE OF SERVICE: 10/11/2018 This 63-year-old woman was admitted with abdominal pain and rash. Also, has multiple complex medical issues. Recently the patient had a Bernice-en-Y anastomotic ulcer recently which was treated conservatively. Patient also has blood-loss anemia. Patient also had an upper endoscopy by Dr. Moody and lower endoscopy has been planned in the outpatient setting. Dr. Heath is seeing the patient currently. The patient complaining of lower abdomen pain. Dr. Heath recommended abdominal and pelvis ultrasound. The ultrasound showed anteverted uterus endometrium and no other acute abnormality at this time. There is no history of fever, rigors or chills. PAST MEDICAL HISTORY: Reviewed. REVIEW OF SYSTEMS: ENT No history of diminished hearing or vision. CARDIOVASCULAR No angina or palpitations. RESPIRATORY No cough, no hemoptysis. GI No nausea, vomiting, or diarrhea. No dysuria. NERVOUS No numbness or weakness. CURRENT MEDICATIONS: 1. Tylenol 650 q.6h. 2. [place] 10 mg q.i.d. p.r.n. 3. Xanax 0.5 p.o. q.i.d. 4. Tums 500 mg p.o. 5. Vitamin B12, 2.5 mg p.o. daily. 6. Neurontin 100 mg p.o. t.i.d. 7. Heparin subcu b.i.d. 8. Dilaudid 0.5 mg q.4h p.r.n. 9. Toprol-XL 25 mg p.o. 10.Narcan 0.2 q.2h p.r.n. 11.Habitrol 14. 12.Protonix 40 mg. 13.Zoloft 100 mg p.o. daily. 14.Restoril 50 mg q.h.s. 15.Valtrex 1000 mg p.o. b.i.d. PHYSICAL EXAMINATION: Patient is alert, oriented x3. Pulse 68, blood pressure 133/56, respiration 18, temperature 98.7, pulse ox 94% on room air. HEENT: Conjunctivae normal. Oral mucosa moist. NECK: No jugular venous distention. No lymph node enlargement. CARDIOVASCULAR: S1, S2. RESPIRATORY: Diminished breath sounds at the bases. A few scattered rhonchi, no crackles. ABDOMEN: Soft. Mild diffuse tenderness in the lower part. No guarding. No mass palpable. LEGS: No swelling. NERVOUS SYSTEM: No focal deficits. LABS: WBC 3.2, hemoglobin 13.7. ASSESSMENT: 1. Lower abdominal pain for evaluation, possible intestinal adhesions, possible neuropathic pain. 2. Anemia, normocytic anemia of chronic disease. 3. Herpetic lesions. 5. History of cholecystectomy. 6. History of bariatric surgery, Bernice-en-Y. 7. History of recent gastrointestinal bleed. anastomotic ulcer. 8. History of myocardial infarction. 9. History of degenerative joint disease. 10.History of anxiety, depression. 11.History of panic disorder. 12.History of nicotine dependence. RECOMMENDATIONS: Recommend to continue current management, continue symptomatic treatment. I would recommend to continue current medications. I would also recommend to add Neurontin to the current regimen. Also, consult Dr. Moody for possible lower GI endoscopy to complete the workup. Hemoglobin is also 8.7 compared to 10.4 yesterday. We will continue to monitor. Discussed with Dr. Heath. Prognosis guarded because of multiple complex medical issues. Pelvic ultrasound results are noted. Further recommendations to follow. MMODL / IJN: [id number] / [facility]
[2018-10-12] MEDS: HYDROcodone/APAP 10-325MG 1 EACH TAB PO PRN ×4 (01:02→20:19)
--- NOTE | 2018-10-12 01:57 | P.CONS ---
History of Present Illness - Reason for Consult Consult date: 10/11/18 Abdominal pain Requesting physician: Andres Kang - Chief Complaint Abdominal pain - History of Present Illness 63-year-old female with no medical history significant for coronary artery disease, hypertension, anemia, prior Bernice-en-Y surgery, previous peptic ulcer disease and chronic back pain who presented to the hospital with complaints of lower abdominal pain and was previously seen at [facility] for the same complaint. The patient was previously seen on her service for evaluation of anemia which time an upper EGD showed a anastomotic site ulcer which was nonbleeding. The patient was offered a colonoscopy at that time but refused the procedure. On this admission the patient reports approximately 5 days of lower abdominal pain. She reports that the abdominal pain was initially more midline and in the pelvic region but then moved to the left lower quadrant of her abdomen. She describes the pain as burning, sharp and achy in nature. She reports that the pain has been constant and increased in severity prompting her to go to the hospital for further evaluation. She denies any change in her bowel movements, hematochezia or melena. She states that the computed tomography scan done at [facility] was normal. On this admission she had a pelvic ultrasound which was also essentially normal. The patient also reports a recent rash on her lower extremities which she states was due to a medication side effect as well as a long history of skin infections in the perineum and is currently being treated with Valtrex for HSV. Review of Systems REVIEW OF SYSTEMS: CARDIO: Denies any chest pain or palpitations. PULMONARY: Denies any shortness of breath or wheezing. GENITOURINARY: No difficulty voiding or hematuria. MUSCULOSKELETAL: No weakness reported. SKIN: Denies any jaundice or pallor, but does report perennial skin changes and prior lower extremity rash as stated in HPI. PSYCHIATRIC: She does have a history of depression or anxiety. NEUROLOGY: Denies headache, denies any new focal deficits. EARS: No tinnitus, discharge or new hearing loss. NOSE: No discharge or congestion. EYES: No pain in eyes or change in vision. CONSTITUTIONAL: No recent weight loss. No fever, chills, night sweats. Past Medical History Past Medical History: Coronary Artery Disease (CAD), CVA/TIA, GERD/Reflux, GI Bleed, Hypertension, Myocardial Infarction (CT) Additional Past Medical History / Comment(s): pancreatitist,bronchitis, shingles aug 2018 "10 lesions on the brain". ddd(cervical and lumbar), murmur, start of cataracts Last Myocardial Infarction Date:: 93 History of Any Multi-Drug Resistant Organisms: None Reported Past Surgical History: Appendectomy, Bariatric Surgery, Cholecystectomy, Ear Surgery, Heart Catheterization, Orthopedic Surgery, Tonsillectomy Additional Past Surgical History / Comment(s): egd Smoking Status: Current every day smoker - Past Family History Mother Family Medical History: CVA/TIA Additional Family Medical History / Comment(s): emphysema. age 80 Father Family Medical History: Myocardial Infarction (CT) Additional Family Medical History / Comment(s): age 47 Medications and Allergies Home Medications Medication Instructions Recorded Confirmed Type ALPRAZolam [Xanax] 0.5 mg PO QID 07/22/18 10/10/18 History HYDROcodone/APAP 10-325MG [[place] 1 tab PO QID PRN 07/22/18 10/10/18 History 10-325] Calcium Carbonate [Calcium] 600 mg PO DAILY 10/10/18 10/10/18 History Cyanocobalamin (Vitamin B-12) 2,500 mcg PO DAILY 10/10/18 10/10/18 History [Vitamin B12] Metoprolol Succinate (ER) [Toprol 25 mg PO DAILY 10/10/18 10/10/18 History Xl] Omeprazole [PriLOSEC] 20 mg PO DAILY 10/10/18 10/10/18 History Sertraline [Zoloft] 100 mg PO DAILY 10/10/18 10/10/18 History Allergies Allergy/AdvReac Type Severity Reaction Status Date / Time diazepam [From Valium] Allergy Confusion Verified 10/10/18 13:38 diltiazem [From Cardizem] Allergy Swelling Verified 10/10/18 13:38 moxifloxacin [From Avelox] Allergy Unknown Verified 10/10/18 13:38 Penicillins Allergy Unknown Verified 10/10/18 13:38 Sulfa (Sulfonamide Allergy Unknown Verified 10/10/18 13:38 Antibiotics) tapentadol [From Nucynta] Allergy Nausea & Verified 10/10/18 13:38 Vomiting & Diarrhea tetracycline Allergy Rash/Hives Verified 10/10/18 13:38 tramadol [From Ultram] Allergy Unknown Verified 10/10/18 13:38 morphine AdvReac Vomiting Verified 10/10/18 20:07 NSAIDS (Non-Steroidal AdvReac Unknown Verified 10/10/18 13:38 Anti-Inflamma pantoprazole [From Protonix] AdvReac Unknown Verified 10/10/18 13:38 Physical Exam Vitals: Vital Signs Temp Pulse Resp BP Pulse Ox 10/11/18 15:00 97.9 F 61 16 155/71 99 10/11/18 07:00 98.7 F 68 18 133/56 95 Intake and Output 10/11/18 10/11/18 10/12/18 14:59 22:59 06:59 Other: Voiding Method Toilet # Voids 3 2 # Bowel Movements 8 Weight 55.5 kg On physical examination, patient appears comfortable in no apparent distress. HEAD: Normocephalic, atraumatic. EYES: No scleral icterus. No conjunctival injection. MOUTH: No lesions, tongue midline. NECK: Trachea midline, no gross abnormalities. CHEST: Clear to auscultation with no wheezing or rhonchi appreciated. HEART: Regular rate and rhythm. ABDOMEN: Soft, obese. Bowel sounds are positive. No organomegaly. No guarding or rigidity. EXTREMITIES: Minimal pedal edema. SKIN: No rashes, no jaundice. NEUROLOGIC: Alert and oriented x3. No focal deficits. Results CBC & Chem 7: 10/11/18 07:03 10/11/18 07:03 Labs: Abnormal Lab Results - Last 24 Hours (Table) 10/11/18 10/11/18 Range/Units 07:03 07:03 RBC 2.92 L (3.80-5.40) m/uL Hgb 8.7 L D (11.4-16.0) gm/dL Hct 27.3 L (34.0-46.0) % Creatinine 0.50 L (0.52-1.04) mg/dL Microbiology - Last 24 Hours (Table) 10/10/18 14:05 Urine Culture - Final Urine,Voided 10/10/18 14:05 Blood Culture - Preliminary Blood No Growth after 24 hours Comments: Pelvic ultrasound which was essentially negative. Assessment and Plan (1) Lower abdominal pain Narrative/Plan: Left lower quadrant abdominal pain of unknown etiology. Differential is broad including colitis although patient reports that computed tomography scan in [place] was normal, functional pain, musculoskeletal or other etiology. Current Visit: Yes Status: Acute Code(s): R10.30 - LOWER ABDOMINAL PAIN, UNSPECIFIED SNOMED Code(s): 76979424 (2) Anemia, blood loss Narrative/Plan: Previously found to have anastomotic site ulcer. Current Visit: No Status: Acute Code(s): D50.0 - IRON DEFICIENCY ANEMIA SECONDARY TO BLOOD LOSS (CHRONIC) SNOMED Code(s): 036428049 (3) History of Bernice-en-Y gastric bypass Current Visit: No Status: Acute Code(s): Z98.84 - BARIATRIC SURGERY STATUS SNOMED Code(s): 559911617 Plan: Supportive care Clear liquid diet Bowel prep Plan for colonoscopy in the morning Continue to monitor hemoglobin and transfuse as needed Pelvic ultrasound reviewed Surgical service consult the Thank you for allowing us to participate in the care of this patient
[2018-10-12] MEDS: HYDROmorphone 1 MG/ML 1 ML SYRINGE IVP PRN ×5 (02:57→21:34)
[2018-10-12] MEDS: valACYclovir 500 MG TAB PO SCH ×2 (06:52→16:58)
[2018-10-12] MEDS: SERTRALINE 100 MG TAB PO SCH ×2 (08:38→08:44)
[2018-10-12] MEDS: PANTOPRAZOLE 40 MG/10 ML VIAL IV SCH ×2 (08:38→08:47)
[2018-10-12] MEDS: ALPRAZolam 0.5 MG TAB PO SCH ×4 (08:38→21:34)
[2018-10-12] MEDS: HEPARIN SODIUM,PORCINE 5,000 UNIT/ML 1 ML VIAL SQ SCH ×2 (08:38→20:10)
[2018-10-12] MEDS: GABAPENTIN 100 MG CAP PO SCH ×4 (08:38→20:10)
[2018-10-12] MEDS: CALCIUM CARBONATE 500 MG CHEWABLE PO SCH (08:38)
[2018-10-12] MEDS: METOPROLOL SUCCINATE (ER) 25 MG TAB.ER.24H PO SCH (08:38)
[2018-10-12 08:56] LABS: Anion Gap 5 mmol/L; Blood Urea Nitrogen 7 mg/dL (7-17); Carbon Dioxide 33 mmol/L (22-30); Chloride 105 mmol/L (98-107); Glucose 82 mg/dL (74-99); Potassium 4.3 mmol/L (3.5-5.1); Sodium 143 mmol/L (137-145)
[2018-10-12 08:59] LABS: Basophils % (A) 0 %; Eosinophils # (A) 0.1 k/uL (0-0.7); Eosinophils % (A) 4 %; HCT 29.4 % (34.0-46.0); HGB 9.3 gm/dL (11.4-16.0); Hypochromasia Slight; Lymphocytes # (A) 1.2 k/uL (1.0-4.8); Lymphocytes % (A) 33 %; MCH 29.2 pg (25.0-35.0); MCHC 31.4 g/dL (31.0-37.0); MCV 92.8 fL (80.0-100.0); Mean Platelet Volume 7.4; Monocytes # (A) 0.3 k/uL (0-1.0); Monocytes % (A) 8 %; Neutrophils # (A) 1.9 k/uL (1.3-7.7); Neutrophils % (A) 50 %; Platelet Count 247 k/uL (150-450); RBC 3.17 m/uL (3.80-5.40); RDW 13.7 % (11.5-15.5); WBC 3.8 k/uL (3.8-10.6)
[2018-10-12] MEDS: DEXTROSE 5%-0.45% NACL 1,000 ML IV SCH (09:45)
--- NOTE | 2018-10-12 10:05 | P.PN ---
Subjective Progress Note Date: 10/12/18 Principal diagnosis: Lower abdominal pain Patient still having some lower abdominal pain. She took a bowel prep for a colonoscopy today however. T-max 99.3. White blood cell count normal. Pelvic ultrasound normal. Objective - Vital Signs Vital signs: Vital Signs Temp 99.0 F 10/12/18 07:00 Pulse 80 10/12/18 07:00 Resp 18 10/12/18 07:00 BP 160/76 10/12/18 07:00 Pulse Ox 95 10/12/18 07:00 Intake & Output 10/11/18 10/12/18 10/12/18 18:59 06:59 18:59 Weight 55.5 kg Other: Voiding Method Toilet # Voids 3 1 # Bowel Movements 6 - Exam Abdomen: Soft, nondistended, mild left lower quadrant tenderness - Labs CBC & Chem 7: 10/12/18 08:30 10/12/18 08:30 Labs: Abnormal Lab Results - Last 24 Hours (Table) 10/12/18 10/12/18 Range/Units 08:30 08:30 RBC 3.17 L (3.80-5.40) m/uL Hgb 9.3 L (11.4-16.0) gm/dL Hct 29.4 L (34.0-46.0) % Carbon Dioxide 33 H (22-30) mmol/L Microbiology - Last 24 Hours (Table) 10/10/18 14:05 Urine Culture - Final Urine,Voided 10/10/18 14:05 Blood Culture - Preliminary Blood No Growth after 24 hours Assessment and Plan (1) Chronic abdominal pain Narrative/Plan: Await colonoscopy today. No further workup planned from my standpoint. Current Visit: Yes Status: Acute Code(s): R10.9 - UNSPECIFIED ABDOMINAL PAIN ; G89.29 - OTHER CHRONIC PAIN SNOMED Code(s): 668458946
[2018-10-12] MEDS ORDERED: IV FLUID CONTINUATION 1,000 ML IV ONE (10:08)
[2018-10-12] MEDS ORDERED: LIDOCAINE 1% INJ 10MG/ML (20 ML MDV) ONE (10:50)
[2018-10-12] MEDS ORDERED: ePHEDrine SULFATE/0.9% NACL/PF 50 MG/5 ML SYRINGE IV ONE (10:50)
[2018-10-12] MEDS ORDERED: PROPOFOL 10 MG/ML 20 ML VIAL IV ONE (10:50)
--- NOTE | 2018-10-12 11:31 | P.PCN ---
Date of Procedure: 10/12/18 Description of Procedure: BRIEF HISTORY: Patient is a 63-year-old pleasant female patient who presented to the hospital with complaints of lower abdominal pain, initially midline and in the pelvic region and then in the left lower quadrant of the abdomen. The patient was previously seen in evaluation on prior admission for nausea, anemia and had an upper endoscopy in evaluation which was significant for a nonbleeding anastomotic site ulcer in the region of her Bernice-en-Y anastomosis. The patient is on treatment with a PPI at home. On this presentation the patient has reported persistent lower abdominal pain stating that a computed tomography scan performed at [facility] was essentially negative. Evaluation she had a transvaginal ultrasound which was also normal. She is scheduled for a colonoscopy as a part of evaluation. PROCEDURE PERFORMED: Aborted Colonoscopy. PREOPERATIVE DIAGNOSIS: Anemia, left lower abdominal pain. ESTIMATED BLOOD LOSS: Minimal. IV sedation per Anesthesia. PROCEDURE: After informed consent was obtained, the patient, was brought into the endoscopy unit. IV sedation was administered by Anesthesia under continuous monitoring. Digital rectal examination was normal. Initially the Olympus CF- 190 flexible video colonoscope was then inserted in the rectum, where a large amount of solid stool was found obstructing the mucosa and prohibiting the colonoscopy. Prep was poor with a large amount of solid stool in the rectum. Mucosa of the portion of the rectum which was visualized appeared normal. The patient tolerated the procedure well. IMPRESSION: Aborted colonoscopy secondary to a large amount of solid stool found in the rectum prohibiting visualization of mucosa and continuing the procedure. RECOMMENDATIONS: Findings of this examination were discussed with the patient. Clear liquid diet , will repeat prep and plan for colonoscopy tomorrow.
[2018-10-12] MEDS: CYANOCOBALAMIN 500 MCG TAB PO SCH (12:07)
[2018-10-12] MEDS: NICOTINE 14MG/24HR PATCH TRANSDERM SCH (16:54)
[2018-10-12] MEDS: SODIUM CHLORIDE 0.9% 1,000 ML IV SCH (16:54)
[2018-10-12] MEDS ORDERED: PEG 3350-NA SULF,BICARB,CL/KCL 4,000 ML BOTTLE PO ONE (17:00)
--- NOTE | 2018-10-12 19:58 | PN ---
PROGRESS NOTE DATE OF SERVICE: 10/12/2018 This 63-year-old woman was admitted with abdominal pain and rash; has been closely monitored. Colonoscopy could not be completed today because of stool in the rectum. Dr. Moody is planning repeat colonoscopy tomorrow. No chest pain. No palpitations. No fever. PHYSICAL EXAM: Alert and oriented x3. Pulse 82, blood pressure 100/63, respiration 20, temperature 97.9 pulse ox 97% room air. HEENT: Conjunctivae normal. Oral mucosa moist. NECK: No jugular venous distention. No lymph node enlargement. CARDIOVASCULAR: S1, S2. RESPIRATORY: Diminished breath sounds at the bases. A few scattered rhonchi and crackles. ABDOMEN: Soft. Mild diffuse discomfort. No guarding. No mass palpable. LEGS: No swelling. NERVOUS SYSTEM: No focal deficits. LABS: WBC 3.8, hemoglobin 9.3. ASSESSMENT: 1. Lower abdominal pain for evaluation, possible intestinal adhesions, possible neuropathy pain, rule out colitis. 2. Anemia, normocytic anemia of chronic disease. 3. Herpetic lesions. 4. History of cholecystectomy. 5. History of bariatric surgery, Bernice-en-Y. 6. History of recent gastrointestinal bleed with anastomotic ulcer. 7. History of myocardial infarction. 8. History of degenerative joint disease. 9. History of anxiety, depression. 10.History of panic disorder. 11.History of nicotine dependence. RECOMMENDATIONS: Recommend to continue current management, continue symptomatic treatment. Repeat colonoscopy tomorrow. Repeat labs. Guarded prognosis because of multiple complex medical issues. Further recommendations to follow. MMODL / IJN: [id number] /
[2018-10-13] MEDS: HYDROmorphone 1 MG/ML 1 ML SYRINGE IVP PRN ×5 (01:47→21:35)
[2018-10-13] MEDS: HYDROcodone/APAP 10-325MG 1 EACH TAB PO PRN ×4 (02:37→23:32)
[2018-10-13] MEDS: valACYclovir 500 MG TAB PO SCH ×2 (05:50→17:11)
[2018-10-13] MEDS: PANTOPRAZOLE 40 MG/10 ML VIAL IV SCH ×2 (08:09→08:10)
[2018-10-13] MEDS: HEPARIN SODIUM,PORCINE 5,000 UNIT/ML 1 ML VIAL SQ SCH ×2 (08:10→21:35)
[2018-10-13] MEDS: ALPRAZolam 0.5 MG TAB PO SCH ×4 (09:07→21:35)
[2018-10-13] MEDS: CALCIUM CARBONATE 500 MG CHEWABLE PO SCH (09:07)
[2018-10-13] MEDS: GABAPENTIN 100 MG CAP PO SCH ×3 (09:08→21:35)
[2018-10-13] MEDS: SERTRALINE 100 MG TAB PO SCH (09:08)
[2018-10-13] MEDS: METOPROLOL SUCCINATE (ER) 25 MG TAB.ER.24H PO SCH (09:08)
[2018-10-13] MEDS: DEXTROSE 5%-0.45% NACL 1,000 ML IV SCH (10:42)
[2018-10-13] MEDS ORDERED: LIDOCAINE 1% INJ 10MG/ML (20 ML MDV) ONE (11:01)
[2018-10-13] MEDS ORDERED: PROPOFOL 10 MG/ML 20 ML VIAL IV ONE (11:01)
[2018-10-13] MEDS ORDERED: IV FLUID CONTINUATION 1,000 ML IV ONE (11:02)
--- NOTE | 2018-10-13 11:25 | P.PCN ---
Date of Procedure: 10/13/18 Procedure(s) Performed: BRIEF HISTORY: Patient is a 63-year-old pleasant white white female, admitted hospital with lower abdominal pain for the last few weeks duration. She is hence scheduled for colonoscopy to evaluate further. She had an attempted colonoscopy yesterday but because of the poor prep procedure was canceled. PROCEDURE PERFORMED: Colonoscopy. PREOPERATIVE DIAGNOSIS: Lower abdominal pain. IV sedation per Anesthesia. PROCEDURE: After informed consent was obtained, the patient, was brought into the endoscopy unit. IV sedation was administered by Anesthesia under continuous monitoring. Digital rectal examination was normal. Initially the Olympus CF- 160 flexible video colonoscope was then inserted in the rectum, gradually advanced into the cecum without any difficulty. Careful examination was performed as the scope was gradually being withdrawn. Ileocecal valve and the appendiceal orifice were visualized and appeared normal. Prep was excellent. Mucosa of the cecum, ascending colon, transverse colon, descending colon, sigmoid colon, and rectum appeared normal. Retroflexion was performed in the rectum and no lesions were seen. The patient tolerated the procedure well. IMPRESSION: Normal-appearing colon from rectum to cecum with no evidence of colorectal neoplasia. RECOMMENDATIONS: Findings of this examination were discussed with the patient is a family. She was advised to be a high-fiber diet, take fiber supplements on a regular basis..
[2018-10-13] MEDS: CYANOCOBALAMIN 500 MCG TAB PO SCH (13:22)
[2018-10-13 15:20] LABS: Basophils % (A) 0 %; Eosinophils # (A) 0.1 k/uL (0-0.7); Eosinophils % (A) 1 %; HCT 26.2 % (34.0-46.0); HGB 8.6 gm/dL (11.4-16.0); Hypochromasia Slight; Lymphocytes # (A) 0.8 k/uL (1.0-4.8); Lymphocytes % (A) 17 %; MCH 30.6 pg (25.0-35.0); MCHC 32.9 g/dL (31.0-37.0); MCV 92.9 fL (80.0-100.0); Mean Platelet Volume 8.9; Monocytes # (A) 0.4 k/uL (0-1.0); Monocytes % (A) 9 %; Neutrophils # (A) 3.5 k/uL (1.3-7.7); Neutrophils % (A) 70 %; Platelet Count 241 k/uL (150-450); RBC 2.83 m/uL (3.80-5.40); RDW 13.7 % (11.5-15.5); WBC 4.9 k/uL (3.8-10.6)
[2018-10-13 15:27] LABS: Anion Gap 3 mmol/L; Blood Urea Nitrogen 6 mg/dL (7-17); Calcium 8.7 mg/dL (8.4-10.2); Carbon Dioxide 31 mmol/L (22-30); Chloride 107 mmol/L (98-107); Glucose 66 mg/dL (74-99); Sodium 141 mmol/L (137-145)
--- NOTE | 2018-10-13 16:51 | P.PN ---
Subjective Progress Note Date: 10/13/18 Principal diagnosis: Lower abdominal pain Patient still having left lower quadrant and left side pain. Seems to be somewhat improved. Had her colonoscopy today. No abnormalities identified. Tolerating diet. She is afebrile. Objective - Vital Signs Vital signs: Vital Signs Temp 98.9 F 10/13/18 14:39 Pulse 73 10/13/18 14:39 Resp 16 10/13/18 14:39 BP 131/59 10/13/18 14:39 Pulse Ox 99 10/13/18 14:39 Intake & Output 10/12/18 10/13/18 10/13/18 18:59 06:59 18:59 Intake Total 520 250 Balance 520 250 Intake: IV 200 250 Oral 320 Other: # Voids 3 3 3 # Bowel Movements 3 1 - Exam Abdomen: Soft, mild left lower quadrant tenderness, no rebound or guarding, no palpable hernia - Labs CBC & Chem 7: 10/13/18 15:10 10/13/18 15:10 Labs: Abnormal Lab Results - Last 24 Hours (Table) 10/13/18 10/13/18 Range/Units 15:10 15:10 RBC 2.83 L (3.80-5.40) m/uL Hgb 8.6 L (11.4-16.0) gm/dL Hct 26.2 L (34.0-46.0) % Lymphocytes # 0.8 L (1.0-4.8) k/uL Carbon Dioxide 31 H (22-30) mmol/L BUN 6 L (7-17) mg/dL Glucose 66 L (74-99) mg/dL Microbiology - Last 24 Hours (Table) 10/10/18 14:05 Blood Culture - Preliminary Blood No Growth after 72 hours Assessment and Plan (1) Chronic abdominal pain Narrative/Plan: Continue diet as tolerated. No surgical intervention planned. We'll sign off. Please contact if needed. Current Visit: Yes Status: Acute Code(s): R10.9 - UNSPECIFIED ABDOMINAL PAIN ; G89.29 - OTHER CHRONIC PAIN SNOMED Code(s): 981459253
[2018-10-13] MEDS: NICOTINE 14MG/24HR PATCH TRANSDERM SCH (17:11)
--- NOTE | 2018-10-13 18:26 | P.PN ---
Subjective Patient is post the colonoscopy note reads it was a negative study. Patient continues to complain of diffuse lower abdominal pain. Patient had consultation with surgery they're signing off. Hopeful discharge tomorrow Objective - Vital Signs Vital signs: Vital Signs Temp 98.9 F 10/13/18 14:39 Pulse 73 10/13/18 14:39 Resp 16 10/13/18 14:39 BP 131/59 10/13/18 14:39 Pulse Ox 99 10/13/18 14:39 Intake & Output 10/12/18 10/13/18 10/13/18 18:59 06:59 18:59 Intake Total 520 250 Balance 520 250 Intake: IV 200 250 Oral 320 Other: # Voids 3 3 3 # Bowel Movements 3 1 - Constitutional General appearance: Present: mild distress - EENT Eyes: Present: PERRLA Ears: bilateral: normal - Neck Neck: Present: normal ROM - Respiratory Respiratory: bilateral: CTA - Cardiovascular Rhythm: regular - Gastrointestinal General gastrointestinal: Present: soft Localized gastrointestinal: tender: suprabubic - Integumentary Integumentary: Present: normal - Neurologic Neurologic: Present: CNII-XII intact - Musculoskeletal Musculoskeletal: Present: generalized weakness - Psychiatric Psychiatric: Present: A&O x's 3, appropriate affect, intact judgment & insight - Labs CBC & Chem 7: 10/13/18 15:10 10/13/18 15:10 Labs: Abnormal Lab Results - Last 24 Hours (Table) 10/13/18 10/13/18 Range/Units 15:10 15:10 RBC 2.83 L (3.80-5.40) m/uL Hgb 8.6 L (11.4-16.0) gm/dL Hct 26.2 L (34.0-46.0) % Lymphocytes # 0.8 L (1.0-4.8) k/uL Carbon Dioxide 31 H (22-30) mmol/L BUN 6 L (7-17) mg/dL Glucose 66 L (74-99) mg/dL Microbiology - Last 24 Hours (Table) 10/10/18 14:05 Blood Culture - Preliminary Blood No Growth after 72 hours - Imaging and Cardiology Abdominal x-ray: report reviewed US - abdomen: report reviewed Assessment and Plan Plan: Assessment Lower abdominal pain negative colonoscopy Anemia normocytic chronic disease History of cholecystectomy Bariatric surgery History of HI Degenerative joint disease Anxiety/depression Plan Hopeful discharge tomorrow Continue consultation with gastroenterology
[2018-10-14] MEDS: HYDROmorphone 1 MG/ML 1 ML SYRINGE IVP PRN ×4 (02:30→14:47)
[2018-10-14] MEDS: valACYclovir 500 MG TAB PO SCH (06:44)
[2018-10-14] MEDS ORDERED: PANTOPRAZOLE 40 MG TABLET PO SCH (07:30)
[2018-10-14] MEDS: GABAPENTIN 100 MG CAP PO SCH ×2 (07:54→15:35)
[2018-10-14] MEDS: SERTRALINE 100 MG TAB PO SCH (07:54)
[2018-10-14] MEDS: METOPROLOL SUCCINATE (ER) 25 MG TAB.ER.24H PO SCH (07:54)
[2018-10-14] MEDS: CALCIUM CARBONATE 500 MG CHEWABLE PO SCH (07:54)
[2018-10-14] MEDS: ALPRAZolam 0.5 MG TAB PO SCH ×2 (07:54→12:40)
[2018-10-14] MEDS: HEPARIN SODIUM,PORCINE 5,000 UNIT/ML 1 ML VIAL SQ SCH (07:55)
[2018-10-14] MEDS: HYDROcodone/APAP 10-325MG 1 EACH TAB PO PRN ×2 (07:56→15:56)
[2018-10-14] MEDS: DEXTROSE 5%-0.45% NACL 1,000 ML IV SCH (10:38)
[2018-10-14 11:04] LABS: Anion Gap 2 mmol/L; Blood Urea Nitrogen 11 mg/dL (7-17); Calcium 8.9 mg/dL (8.4-10.2); Carbon Dioxide 31 mmol/L (22-30); Chloride 106 mmol/L (98-107); Glucose 73 mg/dL (74-99); Potassium 4.1 mmol/L (3.5-5.1); Sodium 139 mmol/L (137-145)
[2018-10-14 12:08] LABS: HCT 27.9 % (34.0-46.0); HGB 8.8 gm/dL (11.4-16.0); Hypochromasia Moderate; MCH 30.4 pg (25.0-35.0); MCHC 31.7 g/dL (31.0-37.0); MCV 95.8 fL (80.0-100.0); Mean Platelet Volume 7.6; Platelet Count 228 k/uL (150-450); RBC 2.91 m/uL (3.80-5.40); RDW 13.7 % (11.5-15.5); WBC 4.3 k/uL (3.8-10.6)
[2018-10-14] MEDS: CYANOCOBALAMIN 500 MCG TAB PO SCH (12:40)
--- NOTE | 2018-10-14 12:52 | P.PN ---
Subjective Patient ambulating freely in hallway. Complains of intermittent left upper quadrant pain colonoscopy clear hopeful discharge soon Objective - Vital Signs Vital signs: Vital Signs Temp 98.4 F 10/14/18 07:00 Pulse 69 10/14/18 07:00 Resp 16 10/14/18 07:00 BP 134/69 10/14/18 07:00 Pulse Ox 95 10/14/18 07:00 Intake & Output 10/13/18 10/14/18 10/14/18 18:59 06:59 18:59 Intake Total 250 Balance 250 Intake: IV 250 Other: # Voids 3 2 # Bowel Movements 1 - Constitutional General appearance: Present: mild distress - EENT Eyes: Present: PERRLA Ears: bilateral: normal - Neck Neck: Present: normal ROM - Respiratory Respiratory: bilateral: CTA - Cardiovascular Rhythm: regular Abnormal Heart Sounds: Present: systolic murmur - Gastrointestinal General gastrointestinal: Present: soft Localized gastrointestinal: tender: LUQ - Integumentary Integumentary: Present: normal - Neurologic Neurologic: Present: CNII-XII intact - Musculoskeletal Musculoskeletal: Present: gait normal - Psychiatric Psychiatric: Present: A&O x's 3, appropriate affect, intact judgment & insight - Labs CBC & Chem 7: 10/14/18 10:22 10/14/18 10:22 Labs: Abnormal Lab Results - Last 24 Hours (Table) 10/13/18 10/13/18 10/14/18 Range/Units 15:10 15:10 10:22 RBC 2.83 L 2.91 L (3.80-5.40) m/uL Hgb 8.6 L 8.8 L (11.4-16.0) gm/dL Hct 26.2 L 27.9 L (34.0-46.0) % Lymphocytes # 0.8 L (1.0-4.8) k/uL Carbon Dioxide 31 H (22-30) mmol/L BUN 6 L (7-17) mg/dL Glucose 66 L (74-99) mg/dL 10/14/18 Range/Units 10:22 RBC (3.80-5.40) m/uL Hgb (11.4-16.0) gm/dL Hct (34.0-46.0) % Lymphocytes # (1.0-4.8) k/uL Carbon Dioxide 31 H (22-30) mmol/L BUN (7-17) mg/dL Glucose 73 L (74-99) mg/dL Microbiology - Last 24 Hours (Table) 10/10/18 14:05 Blood Culture - Preliminary Blood No Growth after 72 hours Assessment and Plan Plan: Assessment Diffuse abdominal pain negative colonoscopy Anemia normocytic anemia chronic disease History of a cholecystectomy bariatric surgery History of coronary disease with HI Degenerative joint disease Anxiety depression Plan Continue consultation with gastroenterology Hopeful discharge soon
[2018-10-14 14:50] LABS: Eosinophils # (M) 0.04 k/uL (0-0.7); Lymphocytes # (M) 2.11 k/uL (1.0-4.8); Neutrophils # (M) 1.85 k/uL (1.3-7.7); Neutrophils % (M) 43 %; Nucleated Red Blood Cells 0 /100 WBC (0-0); Total Cells Counted 100
[2018-10-14 14:51] LABS: Poikilocytosis (M) Present
--- NOTE | 2018-10-14 15:28 | P.DS ---
Providers Date of admission: 10/14/18 08:08 Expected date of discharge: 10/14/18 Attending physician: Lincoln Dodd Consults: 10/10/18 16:53 Consult Physician Stat Consulting Provider: Carl Heath Consult Reason/Comments: LLQ abdominal pain, one week Do you want consulting provider notified?: Yes 10/11/18 13:06 Consult Physician Routine Consulting Provider: Nilesh Chavira Consult Reason/Comments: colonoscopy?? Do you want consulting provider notified?: Yes Primary care physician: Lincoln Dodd Hospital Course: 63-year-old female was admitted to the emergency room with complaints of the abdominal pain. Patient was evaluated with colonoscopy colonoscopy was negative patient had a abdominal ultrasound was negative. Patient was evaluated by gastroenterology and surgery. Surgery signed off on patient Assessment abdominal pain normal colonoscopy anemia normocytic anemia chronic disease herpetic lesions history of cholecystectomy bariatric surgery coronary disease with history of [place] history of degenerative joint disease anxiety depression nicotine dependence Plan follow up with gastroenterology and family physician Dr. Lincoln Dodd Patient Condition at Discharge: Stable Plan - Discharge Summary Discharge Rx Participant: No New Discharge Prescriptions: New Acetaminophen Tab [Tylenol] 650 mg PO Q6HR PRN tab PRN Reason: Mild Pain Or Fever > 100.5 Nicotine 14Mg/24Hr Patch [Habitrol] 1 patch TRANSDERM DAILY@1800 patch valACYclovir [Valtrex] 1,000 mg PO BID@0600,1800 tab Continue HYDROcodone/APAP 10-325MG [[place] 10-325] 1 tab PO QID PRN PRN Reason: Pain ALPRAZolam [Xanax] 0.5 mg PO QID Sertraline [Zoloft] 100 mg PO DAILY Omeprazole [PriLOSEC] 20 mg PO DAILY Metoprolol Succinate (ER) [Toprol XL] 25 mg PO DAILY Cyanocobalamin (Vitamin B-12) [Vitamin B12] 2,500 mcg PO DAILY Calcium Carbonate [Calcium] 600 mg PO DAILY Discharge Medication List ALPRAZolam [Xanax] 0.5 mg PO QID 07/22/18 [History] HYDROcodone/APAP 10-325MG [[place] 10-325] 1 tab PO QID PRN 07/22/18 [History] Calcium Carbonate [Calcium] 600 mg PO DAILY 10/10/18 [History] Cyanocobalamin (Vitamin B-12) [Vitamin B12] 2,500 mcg PO DAILY 10/10/18 [History ] Metoprolol Succinate (ER) [Toprol XL] 25 mg PO DAILY 10/10/18 [History] Omeprazole [PriLOSEC] 20 mg PO DAILY 10/10/18 [History] Sertraline [Zoloft] 100 mg PO DAILY 10/10/18 [History] Acetaminophen Tab [Tylenol] 650 mg PO Q6HR PRN tab 10/14/18 [Rx] Nicotine 14Mg/24Hr Patch [Habitrol] 1 patch TRANSDERM DAILY@1800 patch [Rx] valACYclovir [Valtrex] 1,000 mg PO BID@0600,1800 tab 10/14/18 [Rx] Follow up Appointment(s)/Referral(s): Lincoln Dodd MD [Primary Care Provider] - 1-2 days
[2018-10-14 16:37] VITALS: BP 111/63; PULSE 63; RESP 18; TEMP 98.5
== END 2018-10-14 17:05 | disposition home or self-care (01) | DRG 392 ==
LOC: EC 12:56 → 4MS4W 16:43 → OBSVTOIN 10-14 08:08
PROVIDERS: ADMIT Family Medicine; ATTEND Family Medicine
PROC: 0DJD8ZZ Inspection of Lower Intestinal Tract, Via Natural or Artificial Opening Endoscopic (ICD-10-PCS; principal; 2018-10-12 10:00)
PROC: 0DJD8ZZ Inspection of Lower Intestinal Tract, Via Natural or Artificial Opening Endoscopic (ICD-10-PCS; 2018-10-13)
DX: R10.32 Left lower quadrant pain (principal); I25.10 Atherosclerotic heart disease of native coronary artery without angina pectoris; K21.9 Gastro-esophageal reflux disease without esophagitis; I10 Essential (primary) hypertension; D63.8 Anemia in other chronic diseases classified elsewhere; M19.90 Unspecified osteoarthritis, unspecified site; K76.9 Liver disease, unspecified; G89.29 Other chronic pain; F41.8 Other specified anxiety disorders; M50.30 Other cervical disc degeneration, unspecified cervical region; M51.36 Other intervertebral disc degeneration, lumbar region; F17.200 Nicotine dependence, unspecified, uncomplicated; B00.9 Herpesviral infection, unspecified; Z53.09 Procedure and treatment not carried out because of other contraindication; Z88.0 Allergy status to penicillin; Z90.721 Acquired absence of ovaries, unilateral; Z98.84 Bariatric surgery status; Z86.73 Personal history of transient ischemic attack (TIA), and cerebral infarction without residual deficits; I25.2 Old myocardial infarction; Z90.49 Acquired absence of other specified parts of digestive tract; Z87.11 Personal history of peptic ulcer disease; Z87.828 Personal history of other (healed) physical injury and trauma; Z82.49 Family history of ischemic heart disease and other diseases of the circulatory system; Z83.6 Family history of other diseases of the respiratory system; Z79.899 Other long term (current) drug therapy; Z88.6 Allergy status to analgesic agent; Z88.5 Allergy status to narcotic agent; Z88.2 Allergy status to sulfonamides; Z88.8 Allergy status to other drugs, medicaments and biological substances
CPT/HCPCS: 36415; 45378; 74022; 76830; 76856; 76857; 80048; 80053; 81003; 82150; 82272; 82550; 82553; 83605; 83690; 84484; 85025; 85610; 85730; 87040; 87086; 96361; 96374; 96375; 99285

== ENCOUNTER → 2019-03-05 | Outpatient (CLI) | payer MEDICARE ==
[2019-03-05 13:24] LABS: Basophils % (A) 1 %; Eosinophils # (A) 0.1 k/uL (0-0.7); Eosinophils % (A) 2 %; HCT 28.8 % (34.0-46.0); HGB 8.8 gm/dL (11.4-16.0); Hypochromasia Marked; Lymphocytes # (A) 0.9 k/uL (1.0-4.8); Lymphocytes % (A) 19 %; MCHC 30.5 g/dL (31.0-37.0); MCV 88.7 fL (80.0-100.0); Mean Platelet Volume 6.8; Monocytes # (A) 0.3 k/uL (0-1.0); Monocytes % (A) 6 %; Neutrophils # (A) 3.4 k/uL (1.3-7.7); Neutrophils % (A) 70 %; Platelet Count 364 k/uL (150-450); RBC 3.25 m/uL (3.80-5.40); RDW 15.9 % (11.5-15.5); WBC 4.8 k/uL (3.8-10.6)
[2019-03-05 14:03] LABS: Appearance,Urine Clear (Clear); Bilirubin,Urine Negative (Negative); Blood,Urine Trace (Negative); Color,Urine Yellow; Glucose,Urine (UA) Negative (Negative); Hyaline Casts,Urine 4 /lpf (0-2); Ketones,Urine Trace (Negative); Leukocyte Esterase,Urine Trace (Negative); Mucus,Urine Rare /hpf; Nitrite,Urine Negative (Negative); PH, Urine 6.5 (5.0-8.0); Protein,Urine Trace (Negative); RBC,Urine 11 /hpf (0-5); Specific Gravity,Urine 1.032 (1.001-1.035); Squamous Epithelial Cell,Urine <1 /hpf (0-4); WBC,Urine <1 /hpf (0-5)
[2019-03-05 19:47] LABS: Albumin 3.9 g/dL (3.80-4.90); Albumin/Globulin Ratio 2.17 (1.60-3.17); Anion Gap 7.5 mmol/L (4.00-12.00); Carbon Dioxide 29.5 mmol/L (21.6-31.8); Globulin 1.8 g/dL (1.6-3.3); Potassium 4.7 mmol/L (3.5-5.5); Total Bilirubin 0.2 mg/dL (0.2-1.2); Total Protein 5.7 g/dL (6.2-8.2)
== END | disposition home or self-care (01) ==
LOC: LABWHC1 12:45
PROVIDERS: ATTEND Psychiatry & Neurology Pain Medicine
DX: D64.9 Anemia, unspecified (principal); I10 Essential (primary) hypertension; R61 Generalized hyperhidrosis; R51 Headache; R06.00 Dyspnea, unspecified; R25.1 Tremor, unspecified
CPT/HCPCS: 36415; 80053; 81001; 85025

== ENCOUNTER 2019-03-27 21:53 | Observation (INO) | payer MEDICARE ==
[2019-03-28] MEDS: ALPRAZolam 0.5 MG TAB PO PRN ×2 (03:25→21:27)
[2019-03-28] MEDS: HYDROmorphone 0.5 MG/0.5 ML SYRINGE IVP PRN ×5 (03:26→21:26)
[2019-03-28] MEDS: SODIUM CHLORIDE 0.9% 1,000 ML IV SCH ×3 (03:27→18:01)
[2019-03-28 07:42] LABS: Basophils % (A) 0 %; Eosinophils # (A) 0.2 k/uL (0-0.7); Eosinophils % (A) 3 %; HCT 28.7 % (34.0-46.0); HGB 8.5 gm/dL (11.4-16.0); Hypochromasia Marked; Lymphocytes # (A) 2.1 k/uL (1.0-4.8); Lymphocytes % (A) 39 %; MCH 25.7 pg (25.0-35.0); MCHC 29.7 g/dL (31.0-37.0); MCV 86.8 fL (80.0-100.0); Mean Platelet Volume 7.3; Monocytes # (A) 0.5 k/uL (0-1.0); Monocytes % (A) 9 %; Neutrophils # (A) 2.3 k/uL (1.3-7.7); Neutrophils % (A) 44 %; Platelet Count 413 k/uL (150-450); RDW 15.7 % (11.5-15.5); WBC 5.3 k/uL (3.8-10.6)
[2019-03-28 08:03] LABS: ALT 11 U/L (9-52); AST 23 U/L (14-36); Albumin 3.5 g/dL (3.5-5.0); Alkaline Phosphatase 103 U/L (38-126); Anion Gap 4 mmol/L; Blood Urea Nitrogen 11 mg/dL (7-17); Calcium 9.2 mg/dL (8.4-10.2); Carbon Dioxide 27 mmol/L (22-30); Chloride 107 mmol/L (98-107); Glucose 74 mg/dL (74-99); Lipase 291 U/L (23-300); Potassium 4.1 mmol/L (3.5-5.1); Sodium 138 mmol/L (137-145); Total Bilirubin 0.2 mg/dL (0.2-1.3); Total Protein 6.1 g/dL (6.3-8.2)
[2019-03-28] MEDS: PANTOPRAZOLE 40 MG TABLET PO SCH (09:43)
[2019-03-28] MEDS: HEPARIN SODIUM,PORCINE 5,000 UNIT/ML 1 ML VIAL SQ SCH ×2 (09:51→18:19)
[2019-03-28] MEDS: SERTRALINE 100 MG TAB PO SCH (09:52)
[2019-03-28] MEDS: METOPROLOL SUCCINATE (ER) 25 MG TAB.ER.24H PO SCH (09:52)
--- NOTE | 2019-03-28 15:17 | P.GSCN ---
History of Present Illness Consult date: 03/28/19 Reason for Consult: Left upper quadrant abdominal pain. History of present illness: 63-year-old female known to our service. I last saw this patient in September of last year. At that time the patient's pain was more left lower quadrant. She has a history of Bernice-en-Y gastric bypass by Dr. Begum at [facility] 11 years ago. Last seen by the bariatric clinic there about 7 years ago. Pain is mostly left upper quadrant. Feels a rubbing sensation at times. Almost feels swollen. CAT scan was performed in early February for similar findings and was normal. She went to [place]'s emergency department. She is found have an elevated lipase and was transferred here. Patient apparently has a history of pancreatitis in the past as well. Her lipase now was normal. Denies nausea vomiting. Some increased pain with liquid intake however. She has been feeling weak and tired and that was the primary reason she actually went to the hospital thinking her chronic anemia was causing the symptoms. Feels better currently. Has been seen by GI in the past. White blood cell count is normal. Review of Systems The patient denies any acute changes in vision or hearing, no dysphagia or odynophagia, no chest pain or shortness of breath, no dysuria or hematuria, no headache, no runny nose, no rectal bleeding or melena, no unexplained weight loss Past Medical History Past Medical History: Coronary Artery Disease (CAD), CVA/TIA, GERD/Reflux, GI Bleed, Hypertension, Myocardial Infarction ([place]) Additional Past Medical History / Comment(s): pancreatitis, bronchitis, shingles aug 2018 "10 lesions on the brain". ddd(cervical and lumbar), murmur, start of cataracts Last Myocardial Infarction Date:: History of Any Multi-Drug Resistant Organisms: None Reported Past Surgical History: Appendectomy, Bariatric Surgery, Cholecystectomy, Ear Surgery, Heart Catheterization, Orthopedic Surgery, Tonsillectomy Additional Past Surgical History / Comment(s): egd, colonoscopies Past Anesthesia/Blood Transfusion Reactions: No Reported Reaction Past Psychological History: Anxiety, Depression, Panic Disorder Smoking Status: Current every day smoker Past Alcohol Use History: None Reported Past Drug Use History: None Reported - Past Family History Mother Family Medical History: CVA/TIA Additional Family Medical History / Comment(s): emphysema. age 80 Father Family Medical History: Myocardial Infarction ([place]) Additional Family Medical History / Comment(s): age 47 Medications and Allergies Home Medications Medication Instructions Recorded Confirmed Type ALPRAZolam [Xanax] 0.5 mg PO QID PRN 07/22/18 03/28/19 History HYDROcodone/APAP 10-325MG [[place] 1 tab PO QID PRN 07/22/18 03/28/19 History 10-325] Cyanocobalamin (Vitamin B-12) 2,500 mcg PO DAILY 10/10/18 03/28/19 History [Vitamin B-12] Omeprazole [PriLOSEC] 20 mg PO DAILY 10/10/18 03/28/19 History Sertraline [Zoloft] 100 mg PO W/SUPPER 10/10/18 03/28/19 History Acetaminophen Tab [Tylenol] 650 mg PO Q6HR PRN tab 10/14/18 03/28/19 Rx Calcium Carbonate [Tums] 2,000 mg PO DAILY 03/28/19 03/28/19 History Ergocalciferol (Vitamin D2) 50,000 unit PO WE 03/28/19 03/28/19 History [Vitamin D2] Folic Acid 0.4 mg PO DAILY 03/28/19 03/28/19 History Metoprolol Tartrate [Lopressor] 25 mg PO BID 03/28/19 03/28/19 History Multivitamins, Thera [Multivitamin 1 tab PO BID 03/28/19 03/28/19 History (formulary)] Sucralfate [Carafate] 1 gm PO QID 03/28/19 03/28/19 History valACYclovir [Valtrex] 1,000 mg PO BID@0600,1800 PRN 03/28/19 03/28/19 History Allergies Allergy/AdvReac Type Severity Reaction Status Date / Time diazepam [From Valium] Allergy Confusion Verified 03/28/19 08:17 diltiazem [From Cardizem] Allergy Swelling Verified 03/28/19 08:17 moxifloxacin [From Avelox] Allergy Unknown Verified 03/28/19 08:17 Penicillins Allergy Unknown Verified 03/28/19 08:17 Sulfa (Sulfonamide Allergy Unknown Verified 03/28/19 08:17 Antibiotics) tapentadol [From Nucynta] Allergy Nausea & Verified 03/28/19 08:17 Vomiting & Diarrhea tetracycline Allergy Rash/Hives Verified 03/28/19 08:17 tramadol [From Ultram] Allergy Unknown Verified 03/28/19 08:17 morphine AdvReac Vomiting Verified 03/28/19 08:17 NSAIDS (Non-Steroidal AdvReac Unknown Verified 03/28/19 08:17 Anti-Inflamma pantoprazole [From Protonix] AdvReac Unknown Verified 03/28/19 08:17 Surgical - Exam Vital Signs Temp Pulse Resp BP Pulse Ox 98.3 F 55 L 18 156/57 96 03/27/19 23:30 03/27/19 23:30 03/27/19 23:30 03/27/19 23:30 03/27/19 23:30 Physical exam: General: Well-developed, well-nourished HEENT: Normocephalic, sclerae nonicteric Abdomen: Mild left upper quadrant tenderness, nondistended Extremities: No edema Neuro: Alert and oriented Results - Labs 03/28/19 07:18 03/28/19 07:18 Abnormal Lab Results - Last 24 Hours (Table) 03/28/19 03/28/19 Range/Units 07:18 07:18 RBC 3.30 L (3.80-5.40) m/uL Hgb 8.5 L (11.4-16.0) gm/dL Hct 28.7 L (34.0-46.0) % MCHC 29.7 L (31.0-37.0) g/dL RDW 15.7 H (11.5-15.5) % Total Protein 6.1 L (6.3-8.2) g/dL Diabetes panel 03/28/19 Range/Units 07:18 Sodium 138 (137-145) mmol/L Potassium 4.1 (3.5-5.1) mmol/L Chloride 107 (98-107) mmol/L Carbon Dioxide 27 (22-30) mmol/L BUN 11 (7-17) mg/dL Creatinine 0.61 (0.52-1.04) mg/dL Glucose 74 (74-99) mg/dL Calcium 9.2 (8.4-10.2) mg/dL AST 23 (14-36) U/L ALT 11 (9-52) U/L Alkaline Phosphatase 103 (38-126) U/L Total Protein 6.1 L (6.3-8.2) g/dL Albumin 3.5 (3.5-5.0) g/dL Calcium panel 03/28/19 Range/Units 07:18 Calcium 9.2 (8.4-10.2) mg/dL Albumin 3.5 (3.5-5.0) g/dL Pituitary panel 03/28/19 Range/Units 07:18 Sodium 138 (137-145) mmol/L Potassium 4.1 (3.5-5.1) mmol/L Chloride 107 (98-107) mmol/L Carbon Dioxide 27 (22-30) mmol/L BUN 11 (7-17) mg/dL Creatinine 0.61 (0.52-1.04) mg/dL Glucose 74 (74-99) mg/dL Calcium 9.2 (8.4-10.2) mg/dL Adrenal panel 03/28/19 Range/Units 07:18 Sodium 138 (137-145) mmol/L Potassium 4.1 (3.5-5.1) mmol/L Chloride 107 (98-107) mmol/L Carbon Dioxide 27 (22-30) mmol/L BUN 11 (7-17) mg/dL Creatinine 0.61 (0.52-1.04) mg/dL Glucose 74 (74-99) mg/dL Calcium 9.2 (8.4-10.2) mg/dL Total Bilirubin 0.2 (0.2-1.3) mg/dL AST 23 (14-36) U/L ALT 11 (9-52) U/L Alkaline Phosphatase 103 (38-126) U/L Total Protein 6.1 L (6.3-8.2) g/dL Albumin 3.5 (3.5-5.0) g/dL Assessment and Plan (1) Left upper quadrant abdominal pain of unknown etiology Narrative/Plan: Etiology of the patient's pain unclear. Could be on the basis of exacerbation of chronic pancreatitis. No surgical intervention planned at this time. We'll advance diet. We'll reevaluate tomorrow. Current Visit: Yes Status: Acute Code(s): R10.12 - LEFT UPPER QUADRANT PAIN SNOMED Code(s): 957825632
[2019-03-29] MEDS: HYDROmorphone 0.5 MG/0.5 ML SYRINGE IVP PRN ×5 (00:25→21:18)
[2019-03-29] MEDS: HEPARIN SODIUM,PORCINE 5,000 UNIT/ML 1 ML VIAL SQ SCH ×4 (00:27→23:45)
[2019-03-29] MEDS: SODIUM CHLORIDE 0.9% 1,000 ML IV SCH ×3 (04:50→16:41)
[2019-03-29] MEDS: ACETAMINOPHEN TAB 325 MG TAB PO PRN ×2 (04:55→12:05)
[2019-03-29] MEDS: PANTOPRAZOLE 40 MG TABLET PO SCH (08:26)
[2019-03-29] MEDS: METOPROLOL SUCCINATE (ER) 25 MG TAB.ER.24H PO SCH (08:35)
[2019-03-29] MEDS: SERTRALINE 100 MG TAB PO SCH (08:35)
--- NOTE | 2019-03-29 09:42 | P.PN ---
Subjective Progress Note Date: 03/29/19 Principal diagnosis: Abdominal pain Patient states her pain is improved today. She is tolerating regular food. Some left upper quadrant discomfort at times. She is requesting Carafate and her [place] that she takes at home. She is afebrile. Objective - Vital Signs Vital signs: Vital Signs Temp 97.8 F 03/29/19 07:56 Pulse 66 03/29/19 07:56 Resp 16 03/29/19 07:56 BP 111/63 03/29/19 07:56 Pulse Ox 97 03/29/19 07:56 Intake & Output 03/28/19 03/29/19 03/29/19 18:59 06:59 18:59 Output Total 0 Balance 0 Output: Stool 0 Other: Voiding Method Toilet # Voids 2 2 - Exam Abdomen: Soft, nontender, nondistended - Labs CBC & Chem 7: 03/28/19 07:18 03/28/19 07:18 Assessment and Plan (1) Left upper quadrant abdominal pain of unknown etiology Narrative/Plan: Resume Carafate and [place]. Continue diet as tolerated. No surgical intervention or diagnostics plan at this time. Recommend follow-up with her bariatric surgeon given the location of her intermittent aunts somewhat chronic left upper quadrant discomfort. We'll sign off. Please call if needed. Current Visit: Yes Status: Acute Code(s): R10.12 - LEFT UPPER QUADRANT PAIN SNOMED Code(s): 367090122
[2019-03-29] MEDS: HYDROcodone/APAP 10-325MG 1 EACH TAB PO PRN ×3 (12:00→23:45)
--- NOTE | 2019-03-29 16:12 | P.HPIM ---
History of Present Illness H&P Date: 03/28/19 Chief Complaint: Abdominal pain 63-year-old female transferred from [facility] with complaint of left upper quadrant abdominal pain. Workup in [place] was unremarkable; patient has been known to surgery service and was last seen by surgery in September of last year. At that time the patient's pain was more left lower quadrant. She has a history of Bernice-en-Y gastric bypass by Dr. Begum at [facility] 11 years ago. Last seen by the bariatric clinic there about 7 years ago. Pain is mostly left upper quadrant. Feels a rubbing sensation at times. Almost feels swollen. CAT scan was performed in early February for similar findings and was normal. She went to [place]'s emergency department. She is found have an elevated lipase and was transferred here. Patient apparently has a history of pancreatitis in the past as well. Her lipase now was normal. Denies nausea vomiting. Some increased pain with liquid intake however. She has been feeling weak and tired and that was the primary reason she actually went to the hospital thinking her chronic anemia was causing the symptoms. Feels better currently. Has been seen by GI in the past. White blood cell count is normal. Review of Systems Constitutional: Denies chills, Denies fever Eyes: denies blurred vision Cardiovascular: Denies chest pain, Denies lightheadedness Respiratory: Denies cough with sputum Gastrointestinal: Reports abdominal pain, Reports nausea, Denies vomiting Genitourinary: Denies dysuria, Denies hematuria Musculoskeletal: Denies frequent falls Integumentary: Denies color changes Neurological: Denies balance difficulties, Denies change in speech, Denies double vision Psychiatric: Reports anxiety Past Medical History Past Medical History: Coronary Artery Disease (CAD), CVA/TIA, GERD/Reflux, GI Bleed, Hypertension, Myocardial Infarction ([place]) Additional Past Medical History / Comment(s): pancreatitis, bronchitis, shingles aug 2018 "10 lesions on the brain". ddd(cervical and lumbar), murmur, start of cataracts Last Myocardial Infarction Date:: History of Any Multi-Drug Resistant Organisms: None Reported Past Surgical History: Appendectomy, Bariatric Surgery, Cholecystectomy, Ear Surgery, Heart Catheterization, Orthopedic Surgery, Tonsillectomy Additional Past Surgical History / Comment(s): egd, colonoscopies Past Anesthesia/Blood Transfusion Reactions: No Reported Reaction Past Psychological History: Anxiety, Depression, Panic Disorder Smoking Status: Current every day smoker Past Alcohol Use History: None Reported Past Drug Use History: None Reported - Past Family History Mother Family Medical History: CVA/TIA Additional Family Medical History / Comment(s): emphysema. age 80 Father Family Medical History: Myocardial Infarction ([place]) Additional Family Medical History / Comment(s): age 47 Medications and Allergies Home Medications Medication Instructions Recorded Confirmed Type ALPRAZolam [Xanax] 0.5 mg PO QID PRN 07/22/18 03/28/19 History HYDROcodone/APAP 10-325MG [[place] 1 tab PO QID PRN 07/22/18 03/28/19 History 10-325] Cyanocobalamin (Vitamin B-12) 2,500 mcg PO DAILY 10/10/18 03/28/19 History [Vitamin B-12] Omeprazole [PriLOSEC] 20 mg PO DAILY 10/10/18 03/28/19 History Sertraline [Zoloft] 100 mg PO W/SUPPER 10/10/18 03/28/19 History Acetaminophen Tab [Tylenol] 650 mg PO Q6HR PRN tab 10/14/18 03/28/19 Rx Calcium Carbonate [Tums] 2,000 mg PO DAILY 03/28/19 03/28/19 History Ergocalciferol (Vitamin D2) 50,000 unit PO WE 03/28/19 03/28/19 History [Vitamin D2] Folic Acid 0.4 mg PO DAILY 03/28/19 03/28/19 History Metoprolol Tartrate [Lopressor] 25 mg PO BID 03/28/19 03/28/19 History Multivitamins, Thera [Multivitamin 1 tab PO BID 03/28/19 03/28/19 History (formulary)] Sucralfate [Carafate] 1 gm PO QID 03/28/19 03/28/19 History valACYclovir [Valtrex] 1,000 mg PO BID@0600,1800 PRN 03/28/19 03/28/19 History Allergies Allergy/AdvReac Type Severity Reaction Status Date / Time diazepam [From Valium] Allergy Confusion Verified 03/28/19 08:17 diltiazem [From Cardizem] Allergy Swelling Verified 03/28/19 08:17 moxifloxacin [From Avelox] Allergy Unknown Verified 03/28/19 08:17 Penicillins Allergy Unknown Verified 03/28/19 08:17 Sulfa (Sulfonamide Allergy Unknown Verified 03/28/19 08:17 Antibiotics) tapentadol [From Nucynta] Allergy Nausea & Verified 03/28/19 08:17 Vomiting & Diarrhea tetracycline Allergy Rash/Hives Verified 03/28/19 08:17 tramadol [From Ultram] Allergy Unknown Verified 03/28/19 08:17 morphine AdvReac Vomiting Verified 03/28/19 08:17 NSAIDS (Non-Steroidal AdvReac Unknown Verified 03/28/19 08:17 Anti-Inflamma pantoprazole [From Protonix] AdvReac Unknown Verified 03/28/19 08:17 Physical Exam Vitals: Vital Signs Temp Pulse Resp BP BP Pulse Ox 03/28/19 06:54 97.9 F 65 18 123/60 98 03/28/19 01:51 98.0 F 56 L 17 128/50 97 03/28/19 00:00 56 L 17 03/27/19 23:30 98.3 F 55 L 18 156/57 96 Intake and Output 03/27/19 03/28/19 03/28/19 22:59 06:59 14:59 Output Total 0 Balance 0 Output: Stool 0 Other: Voiding Method Toilet # Voids 1 2 Weight 51.4 kg PHYSICAL EXAMINATION: GENERAL: The patient is alert and oriented x3, not in any acute distress. Well developed, well nourished. HEENT: Pupils are round and equally reacting to light. EOMI. No scleral icterus. No conjunctival pallor. Normocephalic, atraumatic. No pharyngeal erythema. No thyromegaly. CARDIOVASCULAR: S1 and S2 present. No murmurs, rubs, or gallops. PULMONARY: Chest is clear to auscultation, no wheezing or crackles. ABDOMEN: Soft, nontender, nondistended, normoactive bowel sounds. No palpable organomegaly. MUSCULOSKELETAL: No joint swelling or deformity. EXTREMITIES: No cyanosis, clubbing, or pedal edema. NEUROLOGICAL: Gross neurological examination did not reveal any focal deficits. SKIN: No rashes. Results CBC & Chem 7: 03/28/19 07:18 03/28/19 07:18 Labs: Abnormal Lab Results - Last 24 Hours (Table) 03/28/19 03/28/19 Range/Units 07:18 07:18 RBC 3.30 L (3.80-5.40) m/uL Hgb 8.5 L (11.4-16.0) gm/dL Hct 28.7 L (34.0-46.0) % MCHC 29.7 L (31.0-37.0) g/dL RDW 15.7 H (11.5-15.5) % Total Protein 6.1 L (6.3-8.2) g/dL Thrombosis Risk Factor Assmnt - Choose All That Apply Any of the Below Risk Factors Present?: Yes Other Risk Factors: Yes Each Risk Factor Represents 2 Points: Age 61-74 years Thrombosis Risk Factor Assessment Total Risk Factor Score: 2 Thrombosis Risk Factor Assessment Level: Low Risk Assessment and Plan Assessment: 1. Left upper quadrant abdominal pain; possible acute exacerbation of chronic pancreatitis - Patient remains on IV fluid hydration and remains nothing by mouth; surgery consultation is requested and is pending - Pain controlled in form of [place] 10 mg every 6 hours when necessary and Dilaudid 0.5 mg IV every 3 hours when necessary 2. Hypertension; continue with metoprolol 25 mg daily 3. Gastroesophageal reflux disease; Protonix 40 mg by mouth daily along with Carafate 1 g by mouth twice a day 4. Depression/anxiety; continue with Xanax 0.5 mg 4 times a day and Zoloft 100 mg daily 5. DVT prophylaxis; subcu heparin CODE STATUS; full code Time with Patient: Greater than 30
[2019-03-29] MEDS: SUCRALFATE 1 GM TAB PO SCH (16:41)
[2019-03-29] MEDS: ALPRAZolam 0.5 MG TAB PO PRN ×2 (16:51→23:45)
[2019-03-29 22:09] VITALS: RESP 18
[2019-03-30] MEDS: HYDROmorphone 0.5 MG/0.5 ML SYRINGE IVP PRN ×2 (01:37→06:10)
--- NOTE | 2019-03-30 01:51 | P.PN ---
Subjective Progress Note Date: 03/29/19 Principal diagnosis: Abdominal pain; possible acute pancreatitis 63-year-old female transferred from [facility] with complaint of left upper quadrant abdominal pain. Workup in [place] was unremarkable; patient has been known to surgery service and was last seen by surgery in September of last year. At that time the patient's pain was more left lower quadrant. She has a history of Bernice-en-Y gastric bypass by Dr. Begum at [facility] 11 years ago. Last seen by the bariatric clinic there about 7 years ago. Pain is mostly left upper quadrant. Feels a rubbing sensation at times. Almost feels swollen. CAT scan was performed in early February for similar findings and was normal. She went to [place]'s emergency department. She is found have an elevated lipase and was transferred here. 03/29/2019 Patient is seen and evaluated in room at bedside; reports improvement in abdominal pain; patient has been started on oral diet with a plan to advance as tolerated Vital signs are reviewed with a temperature of 97.8, pulse 66, respirations 16 and blood pressure of 111/63 Gen. surgery is following patient and recommending no further surgery evaluation and advancement of diet as tolerated We will monitor patient closely and requested GI consultation if patient remains symptomatic Objective - Vital Signs Vital signs: Vital Signs Temp 97.8 F 03/29/19 07:56 Pulse 66 03/29/19 07:56 Resp 16 03/29/19 07:56 BP 111/63 03/29/19 07:56 Pulse Ox 97 03/29/19 07:56 Intake & Output 03/28/19 03/29/19 03/29/19 18:59 06:59 18:59 Output Total 0 Balance 0 Output: Stool 0 Other: Voiding Method Toilet # Voids 2 2 - Exam GENERAL: The patient is alert and oriented x3, not in any acute distress. Well developed, well nourished. HEENT: Pupils are round and equally reacting to light. EOMI. No scleral icterus. No conjunctival pallor. Normocephalic, atraumatic. No pharyngeal erythema. No thyromegaly. CARDIOVASCULAR: S1 and S2 present. No murmurs, rubs, or gallops. PULMONARY: Chest is clear to auscultation, no wheezing or crackles. ABDOMEN: Soft, nontender, nondistended, normoactive bowel sounds. No palpable organomegaly. MUSCULOSKELETAL: No joint swelling or deformity. EXTREMITIES: No cyanosis, clubbing, or pedal edema. NEUROLOGICAL: Gross neurological examination did not reveal any focal deficits. SKIN: No rashes. - Labs CBC & Chem 7: 03/28/19 07:18 03/28/19 07:18 Assessment and Plan Assessment: 1. Left upper quadrant abdominal pain; possible acute exacerbation of chronic pancreatitis - Patient remains on IV fluid hydration and remains nothing by mouth; surgery consultation is requested and is pending - Pain controlled in form of [place] 10 mg every 6 hours when necessary and Dilaudid 0.5 mg IV every 3 hours when necessary 2. Hypertension; continue with metoprolol 25 mg daily 3. Gastroesophageal reflux disease; Protonix 40 mg by mouth daily along with Carafate 1 g by mouth twice a day 4. Depression/anxiety; continue with Xanax 0.5 mg 4 times a day and Zoloft 100 mg daily 5. DVT prophylaxis; subcu heparin CODE STATUS; full code Time with Patient: Greater than 30
[2019-03-30] MEDS: SODIUM CHLORIDE 0.9% 1,000 ML IV SCH ×2 (06:10→10:42)
[2019-03-30 06:36] VITALS: BP 160/65; PULSE 63; TEMP 98.7
[2019-03-30] MEDS: METOPROLOL SUCCINATE (ER) 25 MG TAB.ER.24H PO SCH (07:45)
[2019-03-30] MEDS: SERTRALINE 100 MG TAB PO SCH (07:45)
[2019-03-30] MEDS: HEPARIN SODIUM,PORCINE 5,000 UNIT/ML 1 ML VIAL SQ SCH (07:45)
[2019-03-30] MEDS: SUCRALFATE 1 GM TAB PO SCH (07:45)
[2019-03-30] MEDS: PANTOPRAZOLE 40 MG TABLET PO SCH (07:46)
[2019-03-30] MEDS: HYDROcodone/APAP 10-325MG 1 EACH TAB PO PRN (07:56)
[2019-03-30 09:54] LABS: Basophils % (A) 1 %; Eosinophils # (A) 0.1 k/uL (0-0.7); Eosinophils % (A) 2 %; HCT 29.3 % (34.0-46.0); HGB 8.7 gm/dL (11.4-16.0); Hypochromasia Marked; Lymphocytes # (A) 1.7 k/uL (1.0-4.8); Lymphocytes % (A) 30 %; MCH 26.1 pg (25.0-35.0); MCHC 29.7 g/dL (31.0-37.0); Mean Platelet Volume 6.9; Monocytes # (A) 0.4 k/uL (0-1.0); Monocytes % (A) 8 %; Neutrophils # (A) 3.3 k/uL (1.3-7.7); Neutrophils % (A) 58 %; Platelet Count 388 k/uL (150-450); RBC 3.33 m/uL (3.80-5.40); RDW 15.8 % (11.5-15.5); WBC 5.6 k/uL (3.8-10.6)
[2019-03-30 10:30] LABS: Anion Gap 5 mmol/L; Blood Urea Nitrogen 14 mg/dL (7-17); Calcium 8.9 mg/dL (8.4-10.2); Carbon Dioxide 26 mmol/L (22-30); Chloride 108 mmol/L (98-107); Glucose 109 mg/dL (74-99); Lipase 331 U/L (23-300); Potassium 3.8 mmol/L (3.5-5.1); Sodium 139 mmol/L (137-145)
--- NOTE | 2019-03-31 05:23 | DS ---
DISCHARGE SUMMARY FINAL DIAGNOSES: 1. Abdominal pain possible acute exacerbation of chronic pancreatitis, possibly musculoskeletal. 2. Hypertension. 3. Gastroesophageal reflux disease. 4. Depression, anxiety. DISCHARGE DISPOSITION: The patient will be discharged in stable condition with guarded prognosis. HISTORY OF PRESENT ILLNESS: This 63-year-old woman with a past medical history of multiple medical problems as mentioned earlier being followed by Dr. Lincoln Dodd in the outpatient setting admitted with acute on chronic abdominal pain. Patient was treated symptomatically, possibility of acute on chronic exacerbation considered. Lipase is 331, slightly elevated and Dr. Heath saw the patient during the hospitalization. Patient improved significantly. The diet is advanced. On examination, vital signs are stable. CARDIOVASCULAR: S1, S2 muffled. ABDOMEN: Soft, nontender. No guarding or rigidity. NERVOUS SYSTEM: No focal deficits. DISCHARGE ADVICE: 1. Diet is soft. 2. Activity limited until followup. 3. Follow up with Dr. Lincoln Dodd in 2 to 3 days. 4. Follow up with Surgery, Dr Heath, as recommended. MEDICATIONS: 1. Carafate 1 gram p.o. q.i.d. 2. Folic acid 0.4 daily. 3. Lopressor 25 mg p.o. b.i.d. 4. Multivitamins 1 p.o. b.i.d. 5. [place] 10 mg q.i.d. p.r.n. 6. Prilosec 20 mg p.o. daily. 7. Tums 2000 mg p.o. daily. 8. Valtrex 1000 mg p.o. b.i.d. 9. Vitamin B12, 2.5 mg p.o. daily. 10.Vitamin D2, 50,000 p.o. Saturday. 11.Xanax 0.5 q.i.d. p.r.n. 12.Zoloft 100 mg p.o. with supper. 13.Tylenol 650 q.6 p.r.n. Once again, the patient will be discharged in stable condition with guarded prognosis. MMODL / IJN: [id number] / MTDD
== END 2019-03-30 11:49 | disposition home or self-care (01) ==
LOC: 4SSUR 23:34 → 4MS4W 03-29 17:47
PROVIDERS: ADMIT Internal Medicine; ATTEND Internal Medicine
DX: G89.29 Other chronic pain (principal); R10.12 Left upper quadrant pain; I10 Essential (primary) hypertension; K21.9 Gastro-esophageal reflux disease without esophagitis; F32.9 Major depressive disorder, single episode, unspecified; R74.8 Abnormal levels of other serum enzymes; Z98.84 Bariatric surgery status; R53.1 Weakness; D64.9 Anemia, unspecified; I25.10 Atherosclerotic heart disease of native coronary artery without angina pectoris; B02.9 Zoster without complications; I25.2 Old myocardial infarction; M50.30 Other cervical disc degeneration, unspecified cervical region; M51.36 Other intervertebral disc degeneration, lumbar region; Z90.49 Acquired absence of other specified parts of digestive tract; F41.0 Panic disorder [episodic paroxysmal anxiety]; F17.200 Nicotine dependence, unspecified, uncomplicated; Z79.899 Other long term (current) drug therapy; Z86.73 Personal history of transient ischemic attack (TIA), and cerebral infarction without residual deficits; Z87.09 Personal history of other diseases of the respiratory system; Z87.19 Personal history of other diseases of the digestive system; Z79.891 Long term (current) use of opiate analgesic; Z88.8 Allergy status to other drugs, medicaments and biological substances; Z88.0 Allergy status to penicillin; Z88.2 Allergy status to sulfonamides; Z88.5 Allergy status to narcotic agent; Z88.1 Allergy status to other antibiotic agents; Z82.5 Family history of asthma and other chronic lower respiratory diseases
CPT/HCPCS: 96376 ×3; 96361 ×3; 96372 ×3; 96374; 80053; 80048; 83690 ×2; 85025 ×2; G0378 ×4; G0379; J1644 ×3; J1170 ×3

== ENCOUNTER → 2019-07-17 | Outpatient (CLI) | payer MEDICARE ==
--- NOTE | 2019-07-17 11:27 | US ---
EXAMINATION TYPE: US venous doppler duplex LE DATE OF EXAM: 07/17/2019 10:48 AM COMPARISON: NONE CLINICAL HISTORY: M79.662 pain left leg, M79.661 pain right leg. Pain and swelling. SIDE PERFORMED: Bilateral TECHNIQUE: The lower extremity deep venous system is examined utilizing real time linear array sonog katya with graded compression, doppler sonography and color-flow sonography. VESSELS IMAGED: External Iliac Vein (EIV) Common Femoral Vein Deep Femoral Vein Greater Saphenous Vein * Femoral Vein Popliteal Vein Small Saphenous Vein * Proximal Calf Veins (* superficial vessels) Grayscale, color doppler, spectral doppler imaging performed of the deep veins of the lower extremiti es. There is normal flow, compressibility, vascular waveforms. Right Leg: Negative for DVT Left Leg: Negative for DVT IMPRESSION: No sonographic evidence of deep venous thrombosis within either lower extremity.
== END | disposition home or self-care (01) ==
LOC: RADUSWWP 10:22
PROVIDERS: ATTEND Internal Medicine
DX: M79.662 Pain in left lower leg (principal); M79.661 Pain in right lower leg
CPT/HCPCS: 93970

== ENCOUNTER 2019-07-20 14:47 | Emergency (ER) | payer MEDICARE ==
[2019-07-20 14:53] VITALS: RESP 18; TEMP 98.8
[2019-07-20] MEDS ORDERED: SODIUM CHLORIDE 0.9% 1,000 ML IV STA (15:27)
[2019-07-20] MEDS ORDERED: HYDROmorphone 1 MG/ML 1 ML SYRINGE IVP STA ×2 (15:31→17:22)
[2019-07-20] MEDS ORDERED: LABETALOL 5 MG/ML VIAL MDV IVP STA (15:31)
[2019-07-20 15:48] LABS: Anisocytosis Slight; Basophils % (A) 0 %; Eosinophils # (A) 0.1 k/uL (0-0.7); Eosinophils % (A) 1 %; HCT 35.2 % (34.0-46.0); HGB 11.4 gm/dL (11.4-16.0); Lymphocytes # (A) 1.3 k/uL (1.0-4.8); Lymphocytes % (A) 22 %; MCH 28.1 pg (25.0-35.0); MCHC 32.3 g/dL (31.0-37.0); MCV 86.9 fL (80.0-100.0); Mean Platelet Volume 7.1; Monocytes # (A) 0.3 k/uL (0-1.0); Monocytes % (A) 5 %; Neutrophils # (A) 4.2 k/uL (1.3-7.7); Neutrophils % (A) 69 %; Platelet Count 359 k/uL (150-450); RBC 4.05 m/uL (3.80-5.40); RDW 18.9 % (11.5-15.5)
[2019-07-20 15:58] LABS: Partial Thromboplastin Time 24.8 sec (22.0-30.0); Prothrombin Time 10.3 sec (9.0-12.0)
[2019-07-20 16:02] LABS: ALT 6 U/L (9-52); AST 34 U/L (14-36); African American GFR (CKD) >90 (>60 ml/min/1.73 sqM); Albumin 4.6 g/dL (3.5-5.0); Alkaline Phosphatase 134 U/L (38-126); Amylase 68 U/L (30-110); Anion Gap 9 mmol/L; Blood Urea Nitrogen 7 mg/dL (7-17); Calcium 10.3 mg/dL (8.4-10.2); Carbon Dioxide 28 mmol/L (22-30); Chloride 102 mmol/L (98-107); Glucose 91 mg/dL (74-99); Magnesium 2.1 mg/dL (1.6-2.3); Potassium 3.9 mmol/L (3.5-5.1); Sodium 139 mmol/L (137-145); Total Bilirubin 0.6 mg/dL (0.2-1.3); Total Protein 8.3 g/dL (6.3-8.2)
--- NOTE | 2019-07-20 16:17 | XR ---
EXAMINATION TYPE: XR chest 2V DATE OF EXAM: 07/20/2019 COMPARISON: 07/24/2018 HISTORY: Shortness of breath TECHNIQUE: Frontal and lateral views of the chest are obtained. FINDINGS: Scattered senescent parenchymal changes noted. Hyperinflation compatible with COPD. No evidence for infiltrate. No evidence for atelectasis. Heart size is stable. Mediastinal structures are stable and grossly unremarkable. No evidence for hilar prominence. Degenerative changes dorsal spine. IMPRESSION: 1. No evidence for acute pulmonary disease.
--- NOTE | 2019-07-20 16:35 | ED ---
Neck Injury/Pain HPI - General Chief Complaint: Neck Pain/Injury Stated Complaint: High BP, Neck Pain, Ear/Throat Problems Time Seen by Provider: 07/20/19 15:07 Source: RN notes reviewed, old records reviewed Mode of arrival: wheelchair Limitations: no limitations - History of Present Illness Initial Comments: 64-year-old female presents emergency department today with multiple complaints. She complains today and of severe neck pain and elevated blood pressure. Patient states that she's been having history of chronic back pain and muscle spasms for a few months and she does see a neurologist for spine injections. Patient states over the past 2 days the pain become more severe. She did take her blood pressure pressure medications today but when she was receiving an outpatient IV iron injection she was noted to be extremely hypertensive. She does complain of tenderness palpation over the right side of her skull and complains of a fullness within the right side of her neck. Patient reports that she's also noticed some on bleeding from her right ear 2 days ago. Patient states she had no trauma to the ear. She also states she's had a 40 weight loss in the past year, complains of chronic dysphasia over the right side of her neck. - Related Data Home Medications Medication Instructions Recorded Confirmed ALPRAZolam [Xanax] 0.5 mg PO TID PRN 07/22/18 07/20/19 HYDROcodone/APAP 10-325MG [[place] 1 tab PO QID PRN 07/22/18 07/20/19 10-325] Cyanocobalamin (Vitamin B-12) 2,500 mcg PO DAILY 10/10/18 07/20/19 [Vitamin B-12] Omeprazole [PriLOSEC] 20 mg PO DAILY 10/10/18 07/20/19 Sertraline [Zoloft] 100 mg PO W/SUPPER 10/10/18 07/20/19 Calcium Carbonate [Tums] 2,000 mg PO DAILY 03/28/19 07/20/19 Ergocalciferol (Vitamin D2) 50,000 unit PO WE 03/28/19 07/20/19 [Vitamin D2] Folic Acid 0.4 mg PO DAILY 03/28/19 07/20/19 Metoprolol Tartrate [Lopressor] 25 mg PO BID 03/28/19 07/20/19 Multivitamins, Thera [Multivitamin 2 tab PO DAILY 03/28/19 07/20/19 (formulary)] Sucralfate [Carafate] 1 gm PO QID 03/28/19 07/20/19 valACYclovir [Valtrex] 1,000 mg PO BID PRN 03/28/19 07/20/19 ALPRAZolam [Xanax XR] 1 mg PO DAILY 07/20/19 07/20/19 Ferrous Sulfate [Feosol] 325 mg PO DAILY 07/20/19 07/20/19 Previous Rx's Medication Instructions Recorded Acetaminophen Tab [Tylenol] 650 mg PO Q6HR PRN tab 10/14/18 Metoprolol Tartrate [Lopressor] 25 mg PO BID #10 tablet 07/20/19 Grnltmyd-Nctwgqjqo-Dh Otic 2 drops BOTH EARS TID #1 bottle 07/20/19 [Cortisporin Otic Soln] Allergies Allergy/AdvReac Type Severity Reaction Status Date / Time diazepam [From Valium] Allergy Confusion Verified 07/20/19 15:52 diltiazem [From Cardizem] Allergy Swelling Verified 07/20/19 15:52 moxifloxacin [From Avelox] Allergy Unknown Verified 07/20/19 15:52 Penicillins Allergy Unknown Verified 07/20/19 15:52 Sulfa (Sulfonamide Allergy Unknown Verified 07/20/19 15:52 Antibiotics) tapentadol [From Nucynta] Allergy Nausea & Verified 07/20/19 15:52 Vomiting & Diarrhea tetracycline Allergy Rash/Hives Verified 07/20/19 15:52 tramadol [From Ultram] Allergy Unknown Verified 07/20/19 15:52 morphine AdvReac Vomiting Verified 07/20/19 15:52 NSAIDS (Non-Steroidal AdvReac Unknown Verified 07/20/19 15:52 Anti-Inflamma pantoprazole [From Protonix] AdvReac Unknown Verified 07/20/19 15:52 Review of Systems ROS Statement: Those systems with pertinent positive or pertinent negative responses have been documented in the HPI. ROS Other: All systems not noted in ROS Statement are negative. Past Medical History Past Medical History: Coronary Artery Disease (CAD), CVA/TIA, GERD/Reflux, GI Bleed, Hypertension, Myocardial Infarction ([place]) Additional Past Medical History / Comment(s): pancreatitis, bronchitis, shingles aug 2018 "10 lesions on the brain". ddd(cervical and lumbar), murmur, start of cataracts Last Myocardial Infarction Date:: 93 History of Any Multi-Drug Resistant Organisms: None Reported Past Surgical History: Appendectomy, Bariatric Surgery, Cholecystectomy, Ear Surgery, Heart Catheterization, Orthopedic Surgery, Tonsillectomy Additional Past Surgical History / Comment(s): egd, colonoscopies Past Anesthesia/Blood Transfusion Reactions: No Reported Reaction Past Psychological History: Anxiety, Depression, Panic Disorder Smoking Status: Current every day smoker Past Alcohol Use History: None Reported Past Drug Use History: None Reported - Past Family History Mother Family Medical History: CVA/TIA Additional Family Medical History / Comment(s): emphysema. age 80 Father Family Medical History: Myocardial Infarction ([place]) Additional Family Medical History / Comment(s): age 47 General Exam - General Exam Comments Initial Comments: 64-year-old female. No distress. Limitations: no limitations General appearance: alert, in no apparent distress Head exam: Present: atraumatic, normocephalic, normal inspection Eye exam: Present: normal appearance, PERRL, EOMI. Absent: scleral icterus, conjunctival injection, periorbital swelling ENT exam: Present: normal exam Neck exam: Present: normal inspection. Absent: tenderness, meningismus, lymphadenopathy Respiratory exam: Present: normal lung sounds bilaterally. Absent: respiratory distress, wheezes, rales, rhonchi, stridor Cardiovascular Exam: Present: regular rate, normal rhythm, normal heart sounds. Absent: systolic murmur, diastolic murmur, rubs, gallop, clicks GI/Abdominal exam: Present: soft, normal bowel sounds. Absent: distended, tenderness, guarding, rebound, rigid Extremities exam: Present: normal inspection, full ROM, normal capillary refill. Absent: tenderness, pedal edema, joint swelling, calf tenderness Back exam: Present: normal inspection Neurological exam: Present: alert, oriented X3, CN II-XII intact Psychiatric exam: Present: normal affect, normal mood Skin exam: Present: warm, dry, intact, normal color. Absent: rash Course Vital Signs 07/20/19 07/20/19 07/20/19 14:49 15:49 16:16 Temperature 98.8 F Pulse Rate 66 Respiratory 18 Rate Blood Pressure 194/94 191/88 177/81 O2 Sat by Pulse Oximetry 07/20/19 07/20/19 07/20/19 16:42 17:02 17:35 Temperature Pulse Rate Respiratory Rate Blood Pressure 184/91 175/80 155/77 O2 Sat by Pulse Oximetry 07/20/19 18:21 Temperature Pulse Rate 65 Respiratory 18 Rate Blood Pressure 162/74 O2 Sat by Pulse 97 Oximetry Medical Decision Making - Medical Decision Making Patient is a 64 female presents emergency department today with chief complaint of neck pain. Patient also complains of having some irritation, stiff neck. She has a history of dementia since within her neck. Pain with range of motion. No fever at this time. Chart also after aren't Patient with hypertension. She did take her Lopressor this morning. She states it seems to be just related to her pain. Patient was given IV fluids and blood work obtained. Due to significant head and neck pain and also points to do a CT angios neck. This is negative for any significant stenosis or aneurysm change. Patient has no blood about this. When I examining her ear she does have an abrasion of her external ear canal most likely from Q-tips. Otherwise Patient is feeling well. After given 1 dose of Lopressor an ED her blood pressure went down. And pain was managed. Patient was informed that she needs follow-up with her primary care doctor in her sputum underwriting specialist. Discussed return parameters. - Lab Data Result diagrams: 07/20/19 15:39 07/20/19 15:39 Lab Results 07/20/19 07/20/19 07/20/19 Range/Units 15:39 15:39 15:39 WBC 6.0 (3.8-10.6) k/uL RBC 4.05 (3.80-5.40) m/uL Hgb 11.4 (11.4-16.0) gm/dL Hct 35.2 (34.0-46.0) % MCV 86.9 (80.0-100.0) fL MCH 28.1 (25.0-35.0) pg MCHC 32.3 (31.0-37.0) g/dL RDW 18.9 H (11.5-15.5) % Plt Count 359 (150-450) k/uL Neutrophils % 69 % Lymphocytes % 22 % Monocytes % 5 % Eosinophils % 1 % Basophils % 0 % Neutrophils # 4.2 (1.3-7.7) k/uL Lymphocytes # 1.3 (1.0-4.8) k/uL Monocytes # 0.3 (0-1.0) k/uL Eosinophils # 0.1 (0-0.7) k/uL Basophils # 0.0 (0-0.2) k/uL Anisocytosis Slight PT (9.0-12.0) sec INR (<1.2) APTT (22.0-30.0) sec Sodium 139 (137-145) mmol/L Potassium 3.9 (3.5-5.1) mmol/L Chloride 102 (98-107) mmol/L Carbon Dioxide 28 (22-30) mmol/L Anion Gap 9 mmol/L BUN 7 (7-17) mg/dL Creatinine 0.53 (0.52-1.04) mg/dL Est GFR (CKD-EPI)AfAm >90 (>60 ml/min/1.73 sqM) Est GFR (CKD-EPI)NonAf >90 (>60 ml/min/1.73 sqM) Glucose 91 (74-99) mg/dL Calcium 10.3 H (8.4-10.2) mg/dL Magnesium 2.1 (1.6-2.3) mg/dL Total Bilirubin 0.6 (0.2-1.3) mg/dL AST 34 (14-36) U/L ALT 6 L (9-52) U/L Alkaline Phosphatase 134 H (38-126) U/L Troponin I (0.000-0.034) ng/mL NT-Pro-B Natriuret Pep 1890 pg/mL Total Protein 8.3 H (6.3-8.2) g/dL Albumin 4.6 (3.5-5.0) g/dL Amylase 68 (30-110) U/L Lipase 224 (23-300) U/L 07/20/19 07/20/19 Range/Units 15:39 15:39 WBC (3.8-10.6) k/uL RBC (3.80-5.40) m/uL Hgb (11.4-16.0) gm/dL Hct (34.0-46.0) % MCV (80.0-100.0) fL MCH (25.0-35.0) pg MCHC (31.0-37.0) g/dL RDW (11.5-15.5) % Plt Count (150-450) k/uL Neutrophils % % Lymphocytes % % Monocytes % % Eosinophils % % Basophils % % Neutrophils # (1.3-7.7) k/uL Lymphocytes # (1.0-4.8) k/uL Monocytes # (0-1.0) k/uL Eosinophils # (0-0.7) k/uL Basophils # (0-0.2) k/uL Anisocytosis PT 10.3 (9.0-12.0) sec INR 1.0 (<1.2) APTT 24.8 (22.0-30.0) sec Sodium (137-145) mmol/L Potassium (3.5-5.1) mmol/L Chloride (98-107) mmol/L Carbon Dioxide (22-30) mmol/L Anion Gap mmol/L BUN (7-17) mg/dL Creatinine (0.52-1.04) mg/dL Est GFR (CKD-EPI)AfAm (>60 ml/min/1.73 sqM) Est GFR (CKD-EPI)NonAf (>60 ml/min/1.73 sqM) Glucose (74-99) mg/dL Calcium (8.4-10.2) mg/dL Magnesium (1.6-2.3) mg/dL Total Bilirubin (0.2-1.3) mg/dL AST (14-36) U/L ALT (9-52) U/L Alkaline Phosphatase (38-126) U/L Troponin I <0.012 (0.000-0.034) ng/mL NT-Pro-B Natriuret Pep pg/mL Total Protein (6.3-8.2) g/dL Albumin (3.5-5.0) g/dL Amylase (30-110) U/L Lipase (23-300) U/L 07/20/19 16:35 EKG shows normal sinus rhythm inferior infarct age undetermined. Anterior septal infarct age undetermined. Ventricular rate of 64 bpm. Was 142 ms. QRS duration is 84 ms. QT QTc is 394/4 and 6 most seconds. - Radiology Data Radiology results: report reviewed CT angios her neck shows no stenosis, and or internal carotid arteries bilaterally. No significant stenosis or aneurysm change of the level circles bolus. Chest x-ray is negative for any cardiopulmonary disease. Disposition Clinical Impression: Ear canal abrasion, Neck muscle spasm, Episode of hypertension Disposition: HOME SELF-CARE Condition: Good Instructions (If sedation given, give patient instructions): Cervical Strain (ED) Additional Instructions: Please use medication as discussed. Please follow up with family doctor if symptoms have not improved over the next two days. Please return to the emergency room if your symptoms increase or worsen or for any other concerns. Prescriptions: Famdgcdj-Ojlcryaky-Sk Otic [Cortisporin Otic Soln] 2 drops BOTH EARS TID #1 bottle Metoprolol Tartrate [Lopressor] 25 mg PO BID #10 tablet Is patient prescribed a controlled substance at d/c from ED?: No Referrals: Delio Du MD [Primary Care Provider] - 1-2 days Time of Disposition: 17:58
--- NOTE | 2019-07-20 17:05 | CT ---
EXAMINATION TYPE: CT angio head neck DATE OF EXAM: 07/20/2019 HISTORY: Head and neck pain with hypertension. COMPARISON: NONE CT DLP: 1360.5 mGycm. Automated Exposure Control for Dose Reduction was Utilized. TECHNIQUE: CTA scan of the head and neck are without and with IV Contrast, patient injected with 50 mL of Isovue 370, axial images are obtained, coronal and sagittal reformatted images are reviewed. Th ree-D reconstructed images are created on an independent workstation and reviewed. CT of the head is performed without contrast. FINDINGS: Brain: No acute intracranial hemorrhage or midline shift. Diffuse ventricular and sulcal prominence. Some low attenuation in the deep and periventricular white matter. Visualized sinuses are clear and g lobes are intact. Carotid/Vascular Structures: Mild to moderate peripheral plaque in the aortic arch is seen. Normal th ree-vessel origin from the arch. Normal origin of right brachiocephalic artery from the common caroti d artery. Mild to moderate calcified plaque right carotid bulb extending into the proximal internal c arotid artery without significant stenosis identified. Tortuous course right internal carotid artery mid segment is noted. Patent right external carotid artery without significant stenosis. Mild/moderate mixed plaque left carotid bulb extends into external carotid artery without significant stenosis. No significant stenosis in left common or internal carotid artery. Dominant left vertebral artery. Distal right vertebral artery it is hypoplastic or occluded. Tortuous course basilar artery. Hypoplastic bilateral posterior communicating arteries. No significant focal stenosis or aneurysmal change in the posterior circulation. Images of the anterior circulation show hypoplastic left A1 segment with filling of the A2 segment du e to patent anterior communicating artery. No significant focal stenosis or aneurysmal changes seen. Other: Multilevel uncovertebral facet degenerative changes bilaterally in the cervical spine. IMPRESSION: 1. No significant stenosis in common or internal carotid arteries bilaterally. 2. No significant stenosis or aneurysmal change at level of [place].
[2019-07-20 18:22] VITALS: BP 162/74; PULSE 65
== END 2019-07-20 18:22 | disposition home or self-care (01) ==
LOC: EC 14:47
DX: S00.411A Abrasion of right ear, initial encounter (principal); M62.838 Other muscle spasm; I10 Essential (primary) hypertension; R47.02 Dysphasia; I25.10 Atherosclerotic heart disease of native coronary artery without angina pectoris; K21.9 Gastro-esophageal reflux disease without esophagitis; I25.2 Old myocardial infarction; F41.9 Anxiety disorder, unspecified; F32.9 Major depressive disorder, single episode, unspecified; F17.200 Nicotine dependence, unspecified, uncomplicated; Z86.73 Personal history of transient ischemic attack (TIA), and cerebral infarction without residual deficits; Z95.818 Presence of other cardiac implants and grafts; Z79.899 Other long term (current) drug therapy; Z88.8 Allergy status to other drugs, medicaments and biological substances; Z88.1 Allergy status to other antibiotic agents; Z88.0 Allergy status to penicillin; Z88.2 Allergy status to sulfonamides; Z88.5 Allergy status to narcotic agent; Z88.6 Allergy status to analgesic agent
CPT/HCPCS: 36415; 93005; 83880; 80053; 82150; 83690; 83735; 84484; 85025; 85610; 85730; 71046; 70496; 70498; 99285; 96374; 96375; 96376; 96361; J1170; Q9967

== ENCOUNTER → 2019-09-01 | Outpatient (CLI) | payer MEDICARE ==
--- NOTE | 2019-09-01 18:01 | ECHOF ---
Referral Reason:I42.2 Other hypertrophic cardiomyopathy MEASUREMENTS -------- HEIGHT: 127.0 cm WEIGHT: 49.0 kg BP: RVIDd: 3.4 cm (< 3.3) IVSd: 1.5 cm (0.6 - 1.1) LVIDd: 3.3 cm (3.9 - 5.3) LVPWd: 1.6 cm (0.6 - 1.1) IVSs: 1.7 cm LVIDs: 2.6 cm LVPWs: 1.7 cm LA Diam: 5.2 cm (2.7 - 3.8) LAESV Index (A-L): 67.60 ml/m Ao Diam: 3.0 cm (2.0 - 3.7) AV Cusp: 1.6 cm (1.5 - 2.6) LA Diam: 4.8 cm (2.7 - 3.8) MV EXCURSION: 13.970 mm (> 18.000) MV EF SLOPE: 50 mm/s (70 - 150) EPSS: 0.2 cm MV E Evan: 0.87 m/s MV DecT: 271 ms MV A Evan: 0.99 m/s MV E/A Ratio: 0.88 AV maxP.22 mmHg AV meanP.78 mmHg FINDINGS -------- Sinus rhythm. This was a technically good study. The left ventricular size is normal. There is moderate concentric left ventricular hypertrophy. O verall left ventricular systolic function is normal with, an EF between 65 - 70 %. Severe KALEB with peak LVOT gradient of 103.98mmHg. The right ventricle is normal in size. The left atrium is markedly dilated. LA is severely dilated >40 ml/m2 The right atrial size is normal. There is mild aortic valve sclerosis. Mild mitral annular calcification present. Moderate mitral regurgitation is present. Mild tricuspid regurgitation present. Right ventricular systolic pressure is normal at < 35 mmHg. There is no evidence of pulmonary hypertension. There is no pulmonic regurgitation present. The aortic root size is normal. There is no pericardial effusion. CONCLUSIONS -------- 1. Sinus rhythm. 2. This was a technically good study. 3. The left ventricular size is normal. 4. There is moderate concentric left ventricular hypertrophy. 5. Overall left ventricular systolic function is normal with, an EF between 65 - 70 %. 6. Severe KALEB with peak LVOT gradient of 103.98mmHg. 7. The right ventricle is normal in size. 8. The left atrium is markedly dilated. 9. LA is severely dilated >40 ml/m2 10. The right atrial size is normal. 11. There is mild aortic valve sclerosis. 12. Mild mitral annular calcification present. 13. Moderate mitral regurgitation is present. 14. Mild tricuspid regurgitation present. 15. Right ventricular systolic pressure is normal at < 35 mmHg. 16. There is no evidence of pulmonary hypertension. 17. There is no pulmonic regurgitation present. 18. The aortic root size is normal. 19. There is no pericardial effusion. PHYSICIST ASTROPHYSICS: Dora Emery RDCS
== END | disposition home or self-care (01) ==
LOC: RADECHMAIN 14:56
PROVIDERS: ATTEND Internal Medicine
DX: I08.1 Rheumatic disorders of both mitral and tricuspid valves (principal); I42.2 Other hypertrophic cardiomyopathy
CPT/HCPCS: 93306

== ENCOUNTER → 2021-08-17 | Outpatient (CLI) | payer MEDICARE ==
--- NOTE | 2021-08-17 16:55 | ECHOF ---
Referral Reason: MEASUREMENTS -------- HEIGHT: 127.0 cm WEIGHT: 55.8 kg BP: RVIDd: 2.4 cm (< 3.3) IVSd: 1.7 cm (0.6 - 1.1) LVIDd: 2.6 cm (3.9 - 5.3) LVPWd: 1.4 cm (0.6 - 1.1) IVSs: 1.9 cm LVIDs: 1.8 cm LVPWs: 1.9 cm LAESV Index (A-L): 64.41 ml/m Ao Diam: 3.0 cm (2.0 - 3.7) AV Cusp: 1.9 cm (1.5 - 2.6) LA Diam: 3.7 cm (2.7 - 3.8) MV EXCURSION: 13.883 mm (> 18.000) MV EF SLOPE: 21 mm/s (70 - 150) EPSS: 0.2 cm MV E Evan: 1.13 m/s MV DecT: 195 ms MV A Evan: 1.47 m/s MV E/A Ratio: 0.77 AV maxP.99 mmHg AV meanP.48 mmHg RAP: 15.00 mmHg RVSP: 46.35 mmHg FINDINGS -------- This was a technically good study. The cavity size is decreased. There is severe concentric left ventricular hypertrophy. Overall le ft ventricular systolic function is normal with, an EF between 60 - 65 %. Scottie with a LVOT obstructi on with a gradient of 65mmHg. The right ventricle is normal in size. LA is severely dilated >40 ml/m2 The right atrial size is normal. The aortic valve is trileaflet and appears structurally normal. Peak/mean gradient across the Aorti c Valve is 18.99mmHg / 10.48mmHg. The mitral valve leaflets are mildly thickened. Mild mitral annular calcification present. Mild m itral regurgitation is present. The peak and mean MV gradients are 11.32mmHg 5.80mmHg as measured by doppler. Dofz-ca-pnjtxyjd mitral stenosis. The tricuspid valve appears structurally normal. Mild tricuspid regurgitation present. There is m ild pulmonary hypertension. The right ventricular systolic pressure, as measured by Doppler, is 46. 35mmHg. There is no pulmonic regurgitation present. The aortic root size is normal. The inferior vena cava is mildly dilated. There is no pericardial effusion. CONCLUSIONS -------- 1. The cavity size is decreased. 2. There is severe concentric left ventricular hypertrophy. 3. Overall left ventricular systolic function is normal with, an EF between 60 - 65 %. 4. Scottie with a LVOT obstruction with a gradient of 65mmHg 5. LA is severely dilated >40 ml/m2 6. The aortic valve is trileaflet and appears structurally normal. 7. Peak/mean gradient across the Aortic Valve is 18.99mmHg / 10.48mmHg. 8. The mitral valve leaflets are mildly thickened. 9. Mild mitral annular calcification present. 10. Mild mitral regurgitation is present. 11. The peak and mean MV gradients are 11.32mmHg 5.80mmHg as measured by doppler. 12. Rrcy-ok-vybdubcr mitral stenosis. 13. Mild tricuspid regurgitation present. 14. There is mild pulmonary hypertension. 15. The right ventricular systolic pressure, as measured by Doppler, is 46.35mmHg. 16. There is no pericardial effusion. FUEL CELL TECHNICIAN: Amy Andres RDCS
== END | disposition home or self-care (01) ==
LOC: RADECHMAIN 15:05
PROVIDERS: ATTEND Internal Medicine
DX: I08.1 Rheumatic disorders of both mitral and tricuspid valves (principal); I27.20 Pulmonary hypertension, unspecified
CPT/HCPCS: 93306

== ENCOUNTER → 2021-10-09 | Outpatient (CLI) | payer MEDICARE ==
[2021-10-09 18:00] LABS: Basophils # (A) 0.04 X 10*3/uL (0.00-0.10); Basophils % (A) 0.7 %; Eosinophils % (A) 1.7 %; HCT 32.5 % (37.2-46.3); HGB 10.2 g/dL (12.0-15.0); Lymphocytes # (A) 1.76 X 10*3/uL (0.90-5.00); Lymphocytes % (A) 30.7 %; MCH 31.8 pg (27.0-32.0); MCHC 31.4 g/dL (32.0-37.0); MCV 101.2 fL (80.0-97.0); Mean Platelet Volume 10.2 fL (9.5-12.2); Monocytes % (A) 10.5 %; Neutrophils # (A) 3.23 X 10*3/uL (1.80-7.70); Neutrophils % (A) 56.2 %; Platelet Count 263 X 10*3/uL (140-440); RBC 3.21 X 10*6/uL (4.10-5.20); WBC 5.74 X 10*3/uL (4.50-10.00)
[2021-10-09 18:39] LABS: Erythrocyte Sedimentation Rate 21 mm/Hr (0-30)
[2021-10-09 20:13] LABS: ALT 16 U/L (8-44); AST 23 U/L (13-35); African American GFR (CKD) 104.6 (60.0-200.0); Alkaline Phosphatase 94 U/L (41-126); Blood Urea Nitrogen 17.5 mg/dL (9.0-27.0); Calcium 8.8 mg/dL (8.7-10.3); Carbon Dioxide 27.1 mmol/L (20.0-27.5); Chloride 100 mmol/L (96-109); Creatine Kinase 124 U/L (26-186); Ferritin 54.6 ng/mL (10.0-291.0); Globulin 2.1 g/dL (1.6-3.3); Glucose 77 mg/dL (70-110); Iron 73 ug/dL (50-170); Magnesium 2.3 mg/dL (1.5-2.4); Non-African American GFR(CKD) 90.3 (60.0-200.0); Phosphorus 4.4 mg/dL (2.4-5.1); Potassium 4.8 mmol/L (3.5-5.5); Sodium 134 mmol/L (135-145); Total Iron Binding Capacity 375 ug/dL (228-460); Total Protein 6.1 g/dL (6.2-8.2)
[2021-10-09 20:21] LABS: Chol/HDL Ratio 2.25 Ratio; LDL Cholesterol,Calculated 64.4 mg/dL (0.0-131.0); VLDL Calculation 15.12 mg/dL (5.00-40.00)
[2021-10-09 20:36] LABS: C Reactive Protein <0.30 mg/dL (0.00-0.80)
== END | disposition home or self-care (01) ==
LOC: LABWHC1 12:25
PROVIDERS: ATTEND Internal Medicine
DX: Z00.00 Encounter for general adult medical examination without abnormal findings (principal); I10 Essential (primary) hypertension; D64.9 Anemia, unspecified; J44.9 Chronic obstructive pulmonary disease, unspecified; E87.8 Other disorders of electrolyte and fluid balance, not elsewhere classified; E78.5 Hyperlipidemia, unspecified; E03.9 Hypothyroidism, unspecified; E55.9 Vitamin D deficiency, unspecified; M81.0 Age-related osteoporosis without current pathological fracture
CPT/HCPCS: 36415; 80053; 80061; 82306; 82550; 82728; 83540; 83550; 83735; 84100; 84443; 85025; 85652; 86140

== ENCOUNTER 2022-05-20 19:48 | Emergency (ER) | payer MEDICARE ==
[2022-05-20 20:08] VITALS: RESP 16
[2022-05-20 20:26] LABS: Basophils % (A) 0 %; Eosinophils % (A) 0 %; HCT 24.6 % (34.0-46.0); HGB 8.3 gm/dL (11.4-16.0); Lymphocytes # (A) 1.7 k/uL (1.0-4.8); Lymphocytes % (A) 15 %; MCH 34.4 pg (25.0-35.0); MCHC 33.6 g/dL (31.0-37.0); MCV 102.3 fL (80.0-100.0); Macrocytosis Slight; Mean Platelet Volume 8.4; Monocytes # (A) 0.6 k/uL (0-1.0); Monocytes % (A) 5 %; Neutrophils # (A) 8.3 k/uL (1.3-7.7); Neutrophils % (A) 76 %; Platelet Count 225 k/uL (150-450); RBC 2.41 m/uL (3.80-5.40); RDW 12.7 % (11.5-15.5); WBC 10.9 k/uL (3.8-10.6)
--- NOTE | 2022-05-20 21:02 | ED ---
General Adult HPI - General Chief complaint: GI Bleed Stated complaint: GI Bleed Time Seen by Provider: 05/20/22 21:02 Source: patient Mode of arrival: EMS Limitations: no limitations - History of Present Illness Initial comments: Patient presents to the ED by ambulance for evaluation. Patient reports having melanotic stool with a few small blood clots today. Patient states that she had a history of upper GI bleeding 5 years ago. Patient states that she has felt somewhat dyspneic and lightheaded today. Patient denies having any pain. Patient denies trauma or injury. Patient denies anticoagulant medication or NSAID use. Patient denies fever or chills, headache, focal neuro deficit, chest pain or pressure, dyspnea, cough or cold symptoms, palpitations, syncope, abdominal pain, nausea or vomiting, diarrhea or constipation, hematochezia, dys uria/hematuria/urinary symptoms, or any other symptoms or complaints. - Related Data Home Medications Medication Instructions Recorded Confirmed HYDROcodone/APAP 10-325MG [[place] 1 tab PO Q8H PRN 07/22/18 05/20/22 10-325] Omeprazole [PriLOSEC] 20 mg PO HS PRN 10/10/18 05/20/22 Sertraline [Zoloft] 100 mg PO W/SUPPER 10/10/18 05/20/22 Calcium Carbonate [Tums] 2,000 mg PO HS 03/28/19 05/20/22 Ergocalciferol (Vitamin D2) 50,000 unit PO WE 03/28/19 05/20/22 [Vitamin D2] Folic Acid 0.4 mg PO HS 03/28/19 05/20/22 Multivitamins, Thera [Multivitamin 2 tab PO HS 03/28/19 05/20/22 (formulary)] ALPRAZolam [Xanax] 0.5 - 1 mg PO BID PRN 05/20/22 05/20/22 Chlorhexidine Gluconate [Peridex] 15 ml PO BID 05/20/22 05/20/22 Clindamycin Phosphate [Cleocin T 1 applic TOPICAL DAILY PRN 05/20/22 05/20/22 1%] Furosemide [Lasix] 20 mg PO DAILY PRN 05/20/22 05/20/22 Metoprolol Tartrate [Lopressor] 12.5 mg PO HS 05/20/22 05/20/22 clindamycin HCL 300 mg PO Q12H 05/20/22 05/20/22 Previous Rx's Medication Instructions Recorded Acetaminophen Tab [Tylenol] 650 mg PO Q6HR PRN tab 10/14/18 Allergies Allergy/AdvReac Type Severity Reaction Status Date / Time diazepam [From Valium] Allergy Confusion Verified 05/20/22 22:04 diltiazem [From Cardizem] Allergy Swelling Verified 05/20/22 22:04 moxifloxacin [From Avelox] Allergy Unknown Verified 05/20/22 22:04 Penicillins Allergy Swelling Verified 05/20/22 22:04 Sulfa (Sulfonamide Allergy Unknown Verified 05/20/22 22:04 Antibiotics) tapentadol [From Nucynta] Allergy Nausea & Verified 05/20/22 22:04 Vomiting & Diarrhea tetracycline Allergy Rash/Hives Verified 05/20/22 22:04 tramadol [From Ultram] Allergy Unknown Verified 05/20/22 22:04 morphine AdvReac Vomiting Verified 05/20/22 22:04 NSAIDS (Non-Steroidal AdvReac Unknown Verified 05/20/22 22:04 Anti-Inflamma pantoprazole [From Protonix] AdvReac Unknown Verified 05/20/22 22:04 Review of Systems ROS Statement: Those systems with pertinent positive or pertinent negative responses have been documented in the HPI. ROS Other: All systems not noted in ROS Statement are negative. Past Medical History Past Medical History: Coronary Artery Disease (CAD), CVA/TIA, GERD/Reflux, GI Bleed, Hypertension, Myocardial Infarction ([place]) Additional Past Medical History / Comment(s): pancreatitis, bronchitis, shingles aug 2018 "10 lesions on the brain". ddd(cervical and lumbar), murmur, start of cataracts Last Myocardial Infarction Date:: History of Any Multi-Drug Resistant Organisms: None Reported Past Surgical History: Appendectomy, Bariatric Surgery, Cholecystectomy, Ear Surgery, Heart Catheterization, Orthopedic Surgery, Tonsillectomy Additional Past Surgical History / Comment(s): egd, colonoscopies Past Anesthesia/Blood Transfusion Reactions: No Reported Reaction Past Psychological History: Anxiety, Depression, Panic Disorder Past Alcohol Use History: None Reported Past Drug Use History: None Reported - Past Family History Mother Family Medical History: CVA/TIA Additional Family Medical History / Comment(s): emphysema. age 80 Father Family Medical History: Myocardial Infarction ([place]) Additional Family Medical History / Comment(s): age 47 General Exam Limitations: no limitations General appearance: alert, in no apparent distress Head exam: Present: atraumatic, normocephalic Eye exam: Present: normal appearance, EOMI ENT exam: Present: mucous membranes moist Neck exam: Present: other (Trachea is in midline) Respiratory exam: Present: normal lung sounds bilaterally. Absent: respiratory distress, wheezes, rales, rhonchi, stridor Cardiovascular Exam: Present: regular rate, normal rhythm, normal heart sounds, other (Normal radial pulses bilaterally) GI/Abdominal exam: Present: soft, normal bowel sounds. Absent: distended, tenderness, guarding Rectal exam: Present: black stool. Absent: tenderness Extremities exam: Absent: tenderness, pedal edema Neurological exam: Present: alert, oriented X3. Absent: motor sensory deficit Psychiatric exam: Present: normal affect, normal mood Skin exam: Present: warm, dry, intact, normal color Course Vital Signs 05/20/22 05/20/22 05/20/22 19:54 19:59 22:43 Pulse Rate 82 82 85 Respiratory 18 16 16 Rate Blood Pressure 97/58 105/53 106/63 O2 Sat by Pulse 96 99 100 Oximetry - Reevaluation(s) Reevaluation #1: 05/20/22 21:19 Patient is refusing IV pantoprazole, stating that she had a bad reaction with it with the past, causing her to hallucinate. She refuses to try taking it again. 05/20/22 22:21 Case was discussed with Dr. Heath, and he recommends transferring the patient to a facility with an on-call GI service. He has no further recommendations at this time. 05/20/22 22:28 Patient denies development of any new symptoms while in the ED. Patient continues to deny having any chest pain or dyspnea. Patient remains hemodynamically stable. Patient is aware of her test results and my discussion with Dr. Heath as above. Patient agrees with transfer to [facility] at this time given we have no GI coverage here today. 05/20/22 22:49 Case, H&P, test results and ED management were discussed with Dr. Weems (ED physician at [facility]). He accepts ambulance transfer to their ED. He has no further recommendations at this time. EKG Findings - EKG Comments: EKG Findings:: Sinus rhythm with occasional premature supraventricular complexes, ventricular rate of 84 bpm, normal MI and QRS intervals, normal QT interval, normal axis, nonspecific ST and T-wave abnormality Medical Decision Making - Medical Decision Making Patient has been hemodynamically stable while in the ED. Patient was not given an IV PPI given we only have IV Protonix available in our ED, and patient adamantly refuses IV Protonix, stating that she had a bad reaction to it in the past. Patient was also not given any aspirin/anticoagulation despite her elevated troponin given her acute GI bleed. Patient denies having any active chest pain or any chest pain at all. Given there is no GI coverage in our hospital today, patient will be transferred to [facility] for further evaluation and treatment. Dr. Weems has accepted ambulance transfer to the [facility] ED. - Lab Data Result diagrams: 05/20/22 20:13 05/20/22 20:13 Lab Results 05/20/22 05/20/22 05/20/22 Range/Units 20:13 20:13 20:13 WBC 10.9 H (3.8-10.6) k/uL RBC 2.41 L (3.80-5.40) m/uL Hgb 8.3 L (11.4-16.0) gm/dL Hct 24.6 L (34.0-46.0) % MCV 102.3 H (80.0-100.0) fL MCH 34.4 (25.0-35.0) pg MCHC 33.6 (31.0-37.0) g/dL RDW 12.7 (11.5-15.5) % Plt Count 225 (150-450) k/uL MPV 8.4 Neutrophils % 76 % Lymphocytes % 15 % Monocytes % 5 % Eosinophils % 0 % Basophils % 0 % Neutrophils # 8.3 H (1.3-7.7) k/uL Lymphocytes # 1.7 (1.0-4.8) k/uL Monocytes # 0.6 (0-1.0) k/uL Eosinophils # 0.0 (0-0.7) k/uL Basophils # 0.0 (0-0.2) k/uL Macrocytosis Slight PT (9.0-12.0) sec INR (<1.2) APTT 24.7 (22.0-30.0) sec Sodium 133 L (137-145) mmol/L Potassium 4.5 (3.5-5.1) mmol/L Chloride 104 (98-107) mmol/L Carbon Dioxide 23 (22-30) mmol/L Anion Gap 6 mmol/L BUN 50 H (7-17) mg/dL Creatinine 0.82 (0.52-1.04) mg/dL Est GFR (CKD-EPI)AfAm 86 (>60 ml/min/1.73 sqM) Est GFR (CKD-EPI)NonAf 75 (>60 ml/min/1.73 sqM) Glucose 92 (74-99) mg/dL Plasma Lactic Acid Skyler (0.7-2.0) mmol/L Calcium 8.1 L (8.4-10.2) mg/dL Total Bilirubin 0.2 (0.2-1.3) mg/dL AST 22 (14-36) U/L ALT 13 (4-34) U/L Alkaline Phosphatase 74 (38-126) U/L Troponin I (0.000-0.034) ng/mL Total Protein 5.8 L (6.3-8.2) g/dL Albumin 3.3 L (3.5-5.0) g/dL Stool Occult Blood (Negative) Blood Type Blood Type Recheck Bld Type Recheck Status Antibody Screen Spec Expiration Date 05/20/22 05/20/22 05/20/22 Range/Units 20:13 20:13 20:13 WBC (3.8-10.6) k/uL RBC (3.80-5.40) m/uL Hgb (11.4-16.0) gm/dL Hct (34.0-46.0) % MCV (80.0-100.0) fL MCH (25.0-35.0) pg MCHC (31.0-37.0) g/dL RDW (11.5-15.5) % Plt Count (150-450) k/uL MPV Neutrophils % % Lymphocytes % % Monocytes % % Eosinophils % % Basophils % % Neutrophils # (1.3-7.7) k/uL Lymphocytes # (1.0-4.8) k/uL Monocytes # (0-1.0) k/uL Eosinophils # (0-0.7) k/uL Basophils # (0-0.2) k/uL Macrocytosis PT 12.5 H (9.0-12.0) sec INR 1.2 H (<1.2) APTT 24.2 (22.0-30.0) sec Sodium (137-145) mmol/L Potassium (3.5-5.1) mmol/L Chloride (98-107) mmol/L Carbon Dioxide (22-30) mmol/L Anion Gap mmol/L BUN (7-17) mg/dL Creatinine (0.52-1.04) mg/dL Est GFR (CKD-EPI)AfAm (>60 ml/min/1.73 sqM) Est GFR (CKD-EPI)NonAf (>60 ml/min/1.73 sqM) Glucose (74-99) mg/dL Plasma Lactic Acid Skyler (0.7-2.0) mmol/L Calcium (8.4-10.2) mg/dL Total Bilirubin (0.2-1.3) mg/dL AST (14-36) U/L ALT (4-34) U/L Alkaline Phosphatase (38-126) U/L Troponin I 1.090 H* (0.000-0.034) ng/mL Total Protein (6.3-8.2) g/dL Albumin (3.5-5.0) g/dL Stool Occult Blood (Negative) Blood Type A Negative Blood Type Recheck A Neg Bld Type Recheck Status No Antibody Screen NEGATIVE Spec Expiration Date 05/23/2022231205/20/22 05/20/22 Range/Units 20:15 21:24 WBC (3.8-10.6) k/uL RBC (3.80-5.40) m/uL Hgb (11.4-16.0) gm/dL Hct (34.0-46.0) % MCV (80.0-100.0) fL MCH (25.0-35.0) pg MCHC (31.0-37.0) g/dL RDW (11.5-15.5) % Plt Count (150-450) k/uL MPV Neutrophils % % Lymphocytes % % Monocytes % % Eosinophils % % Basophils % % Neutrophils # (1.3-7.7) k/uL Lymphocytes # (1.0-4.8) k/uL Monocytes # (0-1.0) k/uL Eosinophils # (0-0.7) k/uL Basophils # (0-0.2) k/uL Macrocytosis PT (9.0-12.0) sec INR (<1.2) APTT (22.0-30.0) sec Sodium (137-145) mmol/L Potassium (3.5-5.1) mmol/L Chloride (98-107) mmol/L Carbon Dioxide (22-30) mmol/L Anion Gap mmol/L BUN (7-17) mg/dL Creatinine (0.52-1.04) mg/dL Est GFR (CKD-EPI)AfAm (>60 ml/min/1.73 sqM) Est GFR (CKD-EPI)NonAf (>60 ml/min/1.73 sqM) Glucose (74-99) mg/dL Plasma Lactic Acid Skyler 1.1 (0.7-2.0) mmol/L Calcium (8.4-10.2) mg/dL Total Bilirubin (0.2-1.3) mg/dL AST (14-36) U/L ALT (4-34) U/L Alkaline Phosphatase (38-126) U/L Troponin I (0.000-0.034) ng/mL Total Protein (6.3-8.2) g/dL Albumin (3.5-5.0) g/dL Stool Occult Blood Positive H (Negative) Blood Type Blood Type Recheck Bld Type Recheck Status Antibody Screen Spec Expiration Date Critical Care Time Critical Care Time: Yes Total Critical Care Time: 30 Disposition Clinical Impression: Upper GI bleed, Elevated troponin Disposition: OTHER INSTITUTION NOT DEFINED Condition: Stable Is patient prescribed a controlled substance at d/c from ED?: No Referrals: Delio Du MD [Primary Care Provider] - 1-2 days Time of Disposition: 22:50 - Out of Hospital Transfer - Req. Specs Out of Hospital Transfer - Requested Specifics: Other Emergency Center ([facility])
[2022-05-20] MEDS ORDERED: SODIUM CHLORIDE 0.9% 1,000 ML IV ONE (21:06)
[2022-05-20 21:10] LABS: Albumin 3.3 g/dL (3.5-5.0); Calcium 8.1 mg/dL (8.4-10.2); Potassium 4.5 mmol/L (3.5-5.1); Total Bilirubin 0.2 mg/dL (0.2-1.3); Total Protein 5.8 g/dL (6.3-8.2)
[2022-05-20 21:17] LABS: INR 1.2 (<1.2); Partial Thromboplastin Time 24.2 sec (22.0-30.0); Prothrombin Time 12.5 sec (9.0-12.0)
[2022-05-20] MEDS ORDERED: HYDROmorphone 0.5 MG/0.5 ML SYRINGE IVP STA ×2 (22:28→23:28)
[2022-05-20 23:24] VITALS: BP 108/82; PULSE 82
== END 2022-05-20 23:35 | disposition other institution (70) ==
LOC: EC 19:48
DX: K92.2 Gastrointestinal hemorrhage, unspecified (principal); R74.8 Abnormal levels of other serum enzymes; I10 Essential (primary) hypertension; I25.10 Atherosclerotic heart disease of native coronary artery without angina pectoris; I25.2 Old myocardial infarction; K21.9 Gastro-esophageal reflux disease without esophagitis; F32.A Depression, unspecified; F41.9 Anxiety disorder, unspecified; Z86.73 Personal history of transient ischemic attack (TIA), and cerebral infarction without residual deficits; Z79.899 Other long term (current) drug therapy
CPT/HCPCS: 36415; 93005; 86900; 86901; 80053; 83605; 84484; 85025; 85610; 85730; 86850; 82272; 99291; 96374; 96376; 96361 ×2; J1170

== ENCOUNTER 2022-05-29 14:26 | Emergency (ER) | payer MEDICARE ==
[2022-05-29 14:40] VITALS: TEMP 98.3
[2022-05-29] MEDS ORDERED: IOPAMIDOL CONTRAST (ORAL USE) VIAL PO PRN (14:54)
[2022-05-29] MEDS ORDERED: PANTOPRAZOLE 40 MG/10 ML VIAL IVP STA (14:54)
[2022-05-29] MEDS ORDERED: SODIUM CHLORIDE 0.9% 1,000 ML IV STA (14:54)
[2022-05-29] MEDS ORDERED: HYDROmorphone 0.5 MG/0.5 ML SYRINGE IVP STA ×3 (14:54→19:47)
--- NOTE | 2022-05-29 14:58 | ED ---
General Adult HPI - General Chief complaint: Abdominal Pain Stated complaint: Abd pain Time Seen by Provider: 05/29/22 14:32 Source: patient, EMS, RN notes reviewed Mode of arrival: EMS Limitations: no limitations - History of Present Illness Initial comments: Patient is a pleasant 66-year-old female presenting to the emergency Department with left upper abdominal discomfort. Patient recently was here with GI bleed. Patient went to [facility] and had scopes done on the . Patient has had discomfort since that time. Discomfort has steadily increased. Discomfort is left upper abdomen. No vomiting. Patient is no longer having bleeding from the rectum. Patient was identified as having bleeding from the area of the jejunum and has been on Protonix since that time. Patient states her heart enzymes are also elevated. - Related Data Home Medications Medication Instructions Recorded Confirmed HYDROcodone/APAP 10-325MG [[place] 1 tab PO Q8H PRN 07/22/18 05/29/22 10-325] Omeprazole [PriLOSEC] 20 mg PO DAILY 10/10/18 05/29/22 Sertraline [Zoloft] 100 mg PO W/SUPPER 10/10/18 05/29/22 Ergocalciferol (Vitamin D2) 50,000 unit PO WE 03/28/19 05/29/22 [Vitamin D2] Folic Acid 0.4 mg PO DAILY 03/28/19 05/29/22 Multivitamins, Thera [Multivitamin 2 tab PO DAILY 03/28/19 05/29/22 (formulary)] ALPRAZolam [Xanax] 1 mg PO BID PRN 05/20/22 05/29/22 Clindamycin Phosphate [Cleocin T 1 applic TOPICAL DAILY PRN 05/20/22 05/29/22 1%] Furosemide [Lasix] 10 - 20 mg PO DAILY PRN 05/20/22 05/29/22 Calcium Carbonate [Calcium] 1,200 mg PO DAILY 05/29/22 05/29/22 DULoxetine HCL [Cymbalta] 30 mg PO DIRECTED 05/29/22 05/29/22 Metoprolol Tartrate [Lopressor] 75 mg PO TID 05/29/22 05/29/22 Sucralfate [Carafate] 1 gm PO QID PRN 05/29/22 05/29/22 Previous Rx's Medication Instructions Recorded Acetaminophen Tab [Tylenol] 650 mg PO Q6HR PRN tab 10/14/18 Allergies Allergy/AdvReac Type Severity Reaction Status Date / Time diazepam [From Valium] Allergy Confusion Verified 05/29/22 16:03 diltiazem [From Cardizem] Allergy Swelling Verified 05/29/22 16:03 moxifloxacin [From Avelox] Allergy Unknown Verified 05/29/22 16:03 Penicillins Allergy Swelling Verified 05/29/22 16:03 Sulfa (Sulfonamide Allergy Unknown Verified 05/29/22 16:03 Antibiotics) tapentadol [From Nucynta] Allergy Nausea & Verified 05/29/22 16:03 Vomiting & Diarrhea tetracycline Allergy Rash/Hives Verified 05/29/22 16:03 tramadol [From Ultram] Allergy Unknown Verified 05/29/22 16:03 morphine AdvReac Vomiting Verified 05/29/22 16:03 NSAIDS (Non-Steroidal AdvReac Unknown Verified 05/29/22 16:03 Anti-Inflamma pantoprazole [From Protonix] AdvReac Unknown Verified 05/29/22 16:03 Review of Systems ROS Statement: Those systems with pertinent positive or pertinent negative responses have been documented in the HPI. ROS Other: All systems not noted in ROS Statement are negative. Constitutional: Denies: fever Eyes: Denies: eye pain ENT: Denies: ear pain Respiratory: Denies: cough Cardiovascular: Denies: chest pain Endocrine: Denies: fatigue Gastrointestinal: Reports: as per HPI, abdominal pain Genitourinary: Denies: dysuria Musculoskeletal: Denies: back pain Skin: Denies: rash Neurological: Denies: weakness Past Medical History Past Medical History: Coronary Artery Disease (CAD), CVA/TIA, GERD/Reflux, GI Bleed, Hypertension, Myocardial Infarction ([place]) Additional Past Medical History / Comment(s): pancreatitis, bronchitis, shingles aug 2018 "10 lesions on the brain". ddd(cervical and lumbar), murmur, start of cataracts Last Myocardial Infarction Date:: History of Any Multi-Drug Resistant Organisms: None Reported Past Surgical History: Appendectomy, Bariatric Surgery, Cholecystectomy, Ear Surgery, Heart Catheterization, Orthopedic Surgery, Tonsillectomy Additional Past Surgical History / Comment(s): egd, colonoscopies Past Anesthesia/Blood Transfusion Reactions: No Reported Reaction Past Psychological History: Anxiety, Depression, Panic Disorder Smoking Status: Current every day smoker Past Alcohol Use History: None Reported Past Drug Use History: None Reported - Past Family History Mother Family Medical History: CVA/TIA Additional Family Medical History / Comment(s): emphysema. age 80 Father Family Medical History: Myocardial Infarction ([place]) Additional Family Medical History / Comment(s): age 47 General Exam Limitations: no limitations General appearance: alert, in no apparent distress Head exam: Present: normocephalic Eye exam: Present: normal appearance Respiratory exam: Present: normal lung sounds bilaterally Cardiovascular Exam: Present: regular rate, normal rhythm GI/Abdominal exam: Present: soft, tenderness (Moderate tenderness epigastrium and left upper abdomen), normal bowel sounds. Absent: guarding, rebound, pulsatile mass Extremities exam: Present: normal inspection Neurological exam: Present: alert Psychiatric exam: Present: normal affect, normal mood Skin exam: Present: normal color Course Vital Signs 05/29/22 05/29/22 05/29/22 14:28 17:00 19:00 Temperature 98.3 F Pulse Rate 57 L 93 118 H Respiratory 16 18 18 Rate Blood Pressure 139/57 160/70 153/89 O2 Sat by Pulse 96 96 97 Oximetry - Reevaluation(s) Reevaluation #1: 05/29/22 18:03 Case was earlier discussed with Dr. Soto who recommends transfer back to [facility]. We're currently on hold with [facility] transfer team. Patient was reevaluated and updated. 05/29/22 19:44 Case was discussed with Dr. mauro who did review the films and did call back and will accept transfer. EKG Findings - EKG Comments: EKG Findings:: Sinus rhythm with a rate of 79. OR 140. QRS 107. QT 381. QTC 415. Normal axis. Septal Q waves. Inferior and lateral T wave inversion. Previous EKG reviewed from 05/20 Medical Decision Making - Lab Data Result diagrams: 05/29/22 15:05 05/29/22 15:05 Lab Results 05/29/22 05/29/22 05/29/22 Range/Units 15:05 15:05 15:05 WBC 7.4 (3.8-10.6) k/uL RBC 3.79 L (3.80-5.40) m/uL Hgb 12.8 D (11.4-16.0) gm/dL Hct 38.4 (34.0-46.0) % MCV 101.3 H (80.0-100.0) fL MCH 33.7 (25.0-35.0) pg MCHC 33.2 (31.0-37.0) g/dL RDW 14.1 (11.5-15.5) % Plt Count 349 (150-450) k/uL MPV 7.8 Neutrophils % 85 % Lymphocytes % 9 % Monocytes % 4 % Eosinophils % 1 % Basophils % 0 % Neutrophils # 6.3 (1.3-7.7) k/uL Lymphocytes # 0.7 L (1.0-4.8) k/uL Monocytes # 0.3 (0-1.0) k/uL Eosinophils # 0.1 (0-0.7) k/uL Basophils # 0.0 (0-0.2) k/uL Macrocytosis Slight PT 11.0 (9.0-12.0) sec INR 1.0 (<1.2) APTT 25.7 (22.0-30.0) sec Sodium 134 L (137-145) mmol/L Potassium 4.7 (3.5-5.1) mmol/L Chloride 102 (98-107) mmol/L Carbon Dioxide 30 (22-30) mmol/L Anion Gap 2 mmol/L BUN 17 (7-17) mg/dL Creatinine 0.75 (0.52-1.04) mg/dL Est GFR (CKD-EPI)AfAm >90 (>60 ml/min/1.73 sqM) Est GFR (CKD-EPI)NonAf 83 (>60 ml/min/1.73 sqM) Glucose 88 (74-99) mg/dL Calcium 8.7 (8.4-10.2) mg/dL Total Bilirubin 0.5 (0.2-1.3) mg/dL AST 26 (14-36) U/L ALT 14 (4-34) U/L Alkaline Phosphatase 102 (38-126) U/L Troponin I (0.000-0.034) ng/mL Total Protein 6.1 L (6.3-8.2) g/dL Albumin 3.6 (3.5-5.0) g/dL Amylase 79 (30-110) U/L Lipase 225 (23-300) U/L 05/29/22 Range/Units 15:05 WBC (3.8-10.6) k/uL RBC (3.80-5.40) m/uL Hgb (11.4-16.0) gm/dL Hct (34.0-46.0) % MCV (80.0-100.0) fL MCH (25.0-35.0) pg MCHC (31.0-37.0) g/dL RDW (11.5-15.5) % Plt Count (150-450) k/uL MPV Neutrophils % % Lymphocytes % % Monocytes % % Eosinophils % % Basophils % % Neutrophils # (1.3-7.7) k/uL Lymphocytes # (1.0-4.8) k/uL Monocytes # (0-1.0) k/uL Eosinophils # (0-0.7) k/uL Basophils # (0-0.2) k/uL Macrocytosis PT (9.0-12.0) sec INR (<1.2) APTT (22.0-30.0) sec Sodium (137-145) mmol/L Potassium (3.5-5.1) mmol/L Chloride (98-107) mmol/L Carbon Dioxide (22-30) mmol/L Anion Gap mmol/L BUN (7-17) mg/dL Creatinine (0.52-1.04) mg/dL Est GFR (CKD-EPI)AfAm (>60 ml/min/1.73 sqM) Est GFR (CKD-EPI)NonAf (>60 ml/min/1.73 sqM) Glucose (74-99) mg/dL Calcium (8.4-10.2) mg/dL Total Bilirubin (0.2-1.3) mg/dL AST (14-36) U/L ALT (4-34) U/L Alkaline Phosphatase (38-126) U/L Troponin I <0.012 (0.000-0.034) ng/mL Total Protein (6.3-8.2) g/dL Albumin (3.5-5.0) g/dL Amylase (30-110) U/L Lipase (23-300) U/L - Radiology Data Radiology results: report reviewed (As discussed with radiologist there is concern for small amount of free fluid and air in the anterior abdomen near the liver.), image reviewed (Chest x-ray questions free air in the abdomen) Disposition Clinical Impression: Pneumoperitoneum Disposition: OTHER INSTITUTION NOT DEFINED Is patient prescribed a controlled substance at d/c from ED?: No Referrals: Delio Du MD [Primary Care Provider] - 1-2 days Time of Disposition: 19:45 - Out of Hospital Transfer - Req. Specs Out of Hospital Transfer - Requested Specifics: Other Emergency Center
[2022-05-29 15:18] LABS: Basophils % (A) 0 %; Eosinophils # (A) 0.1 k/uL (0-0.7); Eosinophils % (A) 1 %; HCT 38.4 % (34.0-46.0); Lymphocytes # (A) 0.7 k/uL (1.0-4.8); Lymphocytes % (A) 9 %; MCH 33.7 pg (25.0-35.0); MCHC 33.2 g/dL (31.0-37.0); MCV 101.3 fL (80.0-100.0); Macrocytosis Slight; Mean Platelet Volume 7.8; Monocytes # (A) 0.3 k/uL (0-1.0); Monocytes % (A) 4 %; Neutrophils # (A) 6.3 k/uL (1.3-7.7); Neutrophils % (A) 85 %; Platelet Count 349 k/uL (150-450); RBC 3.79 m/uL (3.80-5.40); RDW 14.1 % (11.5-15.5); WBC 7.4 k/uL (3.8-10.6)
[2022-05-29 15:29] LABS: Partial Thromboplastin Time 25.7 sec (22.0-30.0)
[2022-05-29 15:41] LABS: HGB 12.8 gm/dL (11.4-16.0)
--- NOTE | 2022-05-29 15:44 | XR ---
EXAMINATION TYPE: XR chest 2V DATE OF EXAM: 05/29/2022 COMPARISON: 07/20/2019 TECHNIQUE: PA and lateral views submitted. HISTORY: Pain FINDINGS: The lungs are clear and there is no pneumothorax, pleural effusion, or focal pneumonia. Hypertrophi c degenerative changes spine. Surgical clips in the abdomen. Atherosclerotic change aorta. Lucency an teriorly on the lateral view could represent free air in the abdomen. IMPRESSION: 1. Possible free intraperitoneal air within the abdomen recommend CT scan. Report called to the ER ph ysician 3:40 PM 05/29/2022.
[2022-05-29 15:45] LABS: ALT 14 U/L (4-34); AST 26 U/L (14-36); African American GFR (CKD) >90 (>60 ml/min/1.73 sqM); Albumin 3.6 g/dL (3.5-5.0); Alkaline Phosphatase 102 U/L (38-126); Amylase 79 U/L (30-110); Anion Gap 2 mmol/L; Blood Urea Nitrogen 17 mg/dL (7-17); Calcium 8.7 mg/dL (8.4-10.2); Carbon Dioxide 30 mmol/L (22-30); Chloride 102 mmol/L (98-107); Glucose 88 mg/dL (74-99); Lipase 225 U/L (23-300); Non-African American GFR(CKD) 83 (>60 ml/min/1.73 sqM); Potassium 4.7 mmol/L (3.5-5.1); Sodium 134 mmol/L (137-145); Total Bilirubin 0.5 mg/dL (0.2-1.3); Total Protein 6.1 g/dL (6.3-8.2)
--- NOTE | 2022-05-29 17:22 | CT ---
EXAMINATION TYPE: CT abdomen pelvis w con DATE OF EXAM: 05/29/2022 COMPARISON: 07/21/2018 HISTORY: Epigastric abdominal pain. CT DLP: 673.4 mGycm Automated exposure control for dose reduction was used. CONTRAST: Performed with IV Contrast, patient injected with 100ml mL of Isovue 300. Images obtained from the diaphragm to the floor the pelvis with oral and IV contrast. There is some mild subsegmental atelectasis at the lung bases. Heart is borderline enlarged. No peric ardial effusion. There is air in the biliary tree. There is also some free air under the diaphragm an terior to the liver. There are numerous surgical clips at the mason hepatis. Spleen is intact. There is apparent previous gastric bariatric surgery. No evidence of pancreatic mass. There is no adrenal mass. Kidneys show satisfactory contrast opacification. There is no hydronephrosi s. There is mild abdominal ascites fluid in the pelvis and right paracolic gutter. There is minimal f luid in the left paracolic gutter. No retroperitoneal adenopathy. There are multiple sigmoid divertic mahesh. Bladder distends smoothly. Delayed images show normal renal excretion. No sign of renal obstruct ion. There is a first-degree L4-5 spondylolisthesis. The bony pelvis is intact. Hip joints are intact. IMPRESSION: There is abdominal ascites which is new compared to old exam. There is pneumoperitoneum. Bowel leak i s possible. Fluid in the peritoneal cavity has relatively low density and I do not suspect hemorrhage . Colonic diverticulosis without diverticulitis. There is air refluxed into the biliary tree. Previou s bariatric surgery. No bowel obstruction. Exam was discussed with emergency room attending staff at 5:20 PM.
[2022-05-29] MEDS ORDERED: metroNIDAZOLE-NS PMX 500 MG in SALINE 1 100ML.BAG IVPB STA (17:38)
[2022-05-29] MEDS ORDERED: CEFEPIME 1 GM in SODIUM CHLORIDE 0.9% 50 ML IVPB STA (17:47)
[2022-05-29] MEDS ORDERED: ONDANSETRON 4 MG/2 ML VIAL IVP STA (18:31)
[2022-05-29] MEDS ORDERED: HYDROmorphone 1 MG/ML 1 ML SYRINGE IVP STA (20:32)
[2022-05-29 20:48] VITALS: BP 139/82; PULSE 80; RESP 16
== END 2022-05-29 20:48 | disposition other institution (70) ==
LOC: EC 14:26
DX: R18.8 Other ascites (principal); R10.12 Left upper quadrant pain; Z88.8 Allergy status to other drugs, medicaments and biological substances; Z88.0 Allergy status to penicillin; Z88.1 Allergy status to other antibiotic agents; Z88.5 Allergy status to narcotic agent; Z88.6 Allergy status to analgesic agent; K21.9 Gastro-esophageal reflux disease without esophagitis; I10 Essential (primary) hypertension; I25.2 Old myocardial infarction; F17.200 Nicotine dependence, unspecified, uncomplicated; I25.10 Atherosclerotic heart disease of native coronary artery without angina pectoris; Z86.73 Personal history of transient ischemic attack (TIA), and cerebral infarction without residual deficits; Z79.899 Other long term (current) drug therapy
CPT/HCPCS: 36415; 93005; 80053; 82150; 83690; 84484; 85025; 85610; 85730; 87040; 71046; 74177; 99285; 96365; 96366; 96368; 96375; 96376; 96361; J2405; J0692; J1170 ×2; C9113; Q9967

== ENCOUNTER → 2022-07-18 | Outpatient (CLI) | payer MEDICARE ==
[2022-07-18 23:30] LABS: Basophils # (A) 0.03 X 10*3/uL (0.00-0.10); Basophils % (A) 0.8 %; Eosinophils # (A) 0.07 X 10*3/uL (0.04-0.35); Eosinophils % (A) 1.9 %; HCT 32.2 % (37.2-46.3); HGB 10.4 g/dL (12.0-15.0); Immature Grans, Automated 0.3 %; Lymphocytes # (A) 1.24 X 10*3/uL (0.90-5.00); Lymphocytes % (A) 33.2 %; MCH 32.1 pg (27.0-32.0); MCHC 32.3 g/dL (32.0-37.0); MCV 99.4 fL (80.0-97.0); Mean Platelet Volume 10.2 fL (9.5-12.2); Monocytes # (A) 0.51 X 10*3/uL (0.20-1.00); Monocytes % (A) 13.7 %; NRBC Per 100 WBC 0 /100 WBCS (0.0-0.0); Neutrophils # (A) 1.87 X 10*3/uL (1.80-7.70); Neutrophils % (A) 50.1 %; Platelet Count 222 X 10*3/uL (140-440); RBC 3.24 X 10*6/uL (4.10-5.20); RDW 14.7 % (11.5-14.5); WBC 3.73 X 10*3/uL (4.50-10.00)
[2022-07-18 23:35] LABS: Appearance,Urine Clear (Clear); Bilirubin,Urine Negative (Negative); Blood,Urine Trace (Negative); Color,Urine Yellow (Yellow); Ketones,Urine Negative (Negative); Nitrite,Urine Negative (Negative); Specific Gravity,Urine 1.011 (1.001-1.030); Urobilinogen,Urine 0.2 (0.2,1.0)
[2022-07-18 23:43] LABS: Bacteria,Urine None Seen /HPF (None Seen)
[2022-07-19 00:16] LABS: C Reactive Protein <0.30 mg/dL (0.00-0.80); Chol/HDL Ratio 2.01 Ratio; Creatine Kinase 114 U/L (26-186); Ferritin 79.7 ng/mL (10.0-291.0); LDL Cholesterol,Calculated 39.8 mg/dL (0.0-131.0)
[2022-07-19 00:23] LABS: Erythrocyte Sedimentation Rate 11 mm/Hr (0-30)
[2022-07-19 00:43] LABS: % Iron Saturation 23.51 (12.00-45.00); ALT 14 U/L (8-44); AST 25 U/L (13-35); African American GFR (CKD) 80.1 (60.0-200.0); Albumin 3.8 g/dL (3.8-4.9); Albumin/Globulin Ratio 1.52 (1.60-3.17); Alkaline Phosphatase 103 U/L (41-126); BUN/Creat Ratio 26.04 Ratio (12.00-20.00); Blood Urea Nitrogen 22.6 mg/dL (9.0-27.0); Calcium 8.8 mg/dL (8.7-10.3); Carbon Dioxide 28.8 mmol/L (20.0-27.5); Chloride 95 mmol/L (96-109); Globulin 2.5 g/dL (1.6-3.3); Glucose 102 mg/dL (70-110); Iron 96 ug/dL (50-170); Magnesium 2.4 mg/dL (1.5-2.4); Non-African American GFR(CKD) 69.1 (60.0-200.0); Phosphorus 4.5 mg/dL (2.4-5.1); Potassium 4.9 mmol/L (3.5-5.5); Sodium 133 mmol/L (135-145); Total Iron Binding Capacity 407 ug/dL (228-460); Total Protein 6.3 g/dL (6.2-8.2); Uric Acid 4.9 mg/dL (2.9-7.7)
== END | disposition home or self-care (01) ==
LOC: LABWHC1 15:31
PROVIDERS: ATTEND Internal Medicine
DX: I11.0 Hypertensive heart disease with heart failure (principal); M81.0 Age-related osteoporosis without current pathological fracture; D64.9 Anemia, unspecified; I50.9 Heart failure, unspecified; E78.5 Hyperlipidemia, unspecified; E55.9 Vitamin D deficiency, unspecified; M10.9 Gout, unspecified; E03.9 Hypothyroidism, unspecified; I42.9 Cardiomyopathy, unspecified; I25.10 Atherosclerotic heart disease of native coronary artery without angina pectoris
CPT/HCPCS: 36415; 80053; 80061; 81001; 82306; 82550; 82728; 83540; 83550; 83735; 84100; 84443; 84550; 85025; 85652; 86140; 87086